=== PATIENT | male | born 1950 | race Caucasian/White ===

== ENCOUNTER 2018-05-28 13:36 | Outpatient (CLI) | payer MEDICARE, MEDICAID ==
[~2018-05-28] VITALS: Ht 188 cm; Wt 74.8 kg
[~2018-05-28 13:36] MED LIST: ASPI-808 PO; ASPI325T32 PO; ATEN-147 PO; ATEN25TA PO; CLOP75TA28 PO; HYDR-2890 PO; HYDR-3820 PO; LISI10TA2 PO; NITR0.4T39 SL; NTR.4SL SL; OXYC5TAB71 PO; PANT40TA3 PO; PENI500T PO; PRAV10TA PO; PRAV40TA PO; PRAV40TA2 PO; PRM25T PO; PROM25TA14 PO; RNT150T PO; SULF-222 PO; TEMA15CA PO; TRAM50TA2 PO
[2018-06-01] MEDS ORDERED: PANT40TA2 PO (16:22)
== END 2018-05-28 13:45 | disposition home or self-care (01) ==
LOC: PREOP 13:36
PROVIDERS: ATTEND Surgery
DX: Z01.818 Encounter for other preprocedural examination (principal)

== ENCOUNTER 2018-06-01 12:34 | Day surgery (SDC) | payer MEDICARE, MEDICAID ==
[~2018-06-01] VITALS: Ht 188 cm; Wt 74.8 kg
--- OUTSIDE RECORDS SUMMARY | 2018-06-01 12:38 | XMS REPORT ---
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 Active 4984629721758 Problem Panlobular emphysema J43.1 Active 0261230 ALLERGIES No Information ENCOUNTERS Encounter Location Date Diagnosis [place] [id number] [place] [address] 15478- 6573 May, [place] [id number] [place] [address] 83057- 2482 May, [place] [id number] [place] [address] 60883- 7778 May, 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 and Arthritis M19.90 [place] [id number] [place] [address] 84229- 7723 May, [place] [id number] [place] [address] 62463- 3999 05 May, 2018 Black tarry stools K92.1 [place] [id number] [place] [address] 36419- 9864 Mar, Black tarry stools K92.1 ; Abdominal pain, left upper quadrant R10.12 and Arthritis M19.90 [place] [id number] [place] [address] 03547- 9284 Mar, Anemia, unspecified type D64.9 [facility] [id number] [place] [address] 99392- 1341 Mar, Anemia, unspecified type D64.9 [facility] [id number] [place] [address] 48225- 9582 Mar, [facility] [id number] [place] [address] 79971- 9124 Mar, Anemia, unspecified type D64.9 [place] [id number] [place] [address] 56211- 6203 Mar, [place] [id number] [place] [address] 33161- 8624 Mar, [place] [id number] [place] [address] 84216- 9093 Mar, Irregular cardiac rhythm I49.9 ; Arthritis M19.90 ; Family history of early CAD Z82.49 ; SOB (shortness of breath) on exertion R06.02 ; Tobacco abuse Z72.0 ; Tobacco abuse counseling Z71.6 and Dysuria R30.0 [place] [id number] [place] [address] 46551- 3471 Mar, Arthritis M19.90 and Panlobular emphysema J43.1 [place] [id number] [place] [address] 58133- 1670 Feb, Arthritis M19.90 and Abdominal pain, left upper quadrant R10.12 [place] [id number] [place] [address] 89737- 2987 Jan, Panlobular emphysema J43.1 [place] [id number] [place] [address] 53842- 4341 Jan, Arthritis M19.90 ; Family history of rheumatoid arthritis Z82.61 ; Gastritis, bile acid reflux K29.60 and Anemia, unspecified type D64.9 [place] [id number] [place] [address] December, [facility] [address] [facility] [id number] [address] December, Panlobular emphysema J43.1 ; Arthritis M19.90 and 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 [facility] [address] [facility] [id number] [place] [address] 4573 Nov, 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0 RDW 25.0 11.0-15.0 PLATELET COUNT 862 140-400 MPV 9.3 7.5-12.5 ABSOLUTE NEUTROPHILS 6215 1582-8020 ABSOLUTE LYMPHOCYTES 3797 850-3900 ABSOLUTE MONOCYTES 836 200-950 ABSOLUTE EOSINOPHILS 373 15-500 ABSOLUTE BASOPHILS 79 0-200 NEUTROPHILS 55 LYMPHOCYTES 33.6 MONOCYTES 7.4 EOSINOPHILS 3.3 BASOPHILS 0.7 PROCEDURES Procedure Date Ordered Result Body Site VENIPUNCT, ROUTINE* Apr 26, 2018 INSTRUCTIONS MEDICATIONS ADMINISTERED No Known Medications MEDICAL (GENERAL) HISTORY Type Description Date Medical History Arthritis Medical History [place] with 2 stents Surgical History cardiac stent Surgical History cholecystectomy
--- OUTSIDE RECORDS SUMMARY | 2018-06-01 12:38 | XMS REPORT ---
Author Author NICOLAS CAMACHO Organization [facility] Address [address] [place] [address] Care Team Providers Care Truck Operator Name Role Phone NICOLAS CAMACHO Unavailable PROBLEMS Type Condition ICD9-CM Code [id number] Code Onset Dates Condition Status SNOMED Code Problem Irregular cardiac rhythm I49.9 Active 388731882 Problem Gastritis, bile acid reflux K29.60 Active 09922164 Problem Arthritis M19.90 Active 6893019 Problem Coronary artery disease of [place] artery of [place] heart with stable angina pectoris I25.118 Active 0859103830944 Problem Panlobular emphysema J43.1 Active 4191556 ALLERGIES Substance Reaction Event Type Date Status Ibuprofen hives Drug Allergy Mar, Active ENCOUNTERS Encounter Location Date Diagnosis [place] [id number] [place] [address] 68730- 0554 May, [facility] [address] 22296- 7938 May, [facility] [id number] [place] [address] 49458- 5933 May, [facility] [id number] [place] [address] 26021- 6777 May, Coronary artery disease of [place] artery of [place] heart with stable angina pectoris I25.118 and Arthritis M19.90 [facility] [id number] [place] [address] 72817- 0354 May, [facility] [address] 29803- 3140 05 May, 2018 Black tarry stools K92.1 [facility] [id number] [place] [address] 98793- 8240 Mar, Black tarry stools K92.1 ; Abdominal pain, left upper quadrant R10.12 and Arthritis M19.90 [place] [id number] [place] [address] 36326- 4200 Mar, Anemia, unspecified type D64.9 [place] [id number] [place] [address] 07083- 9568 Mar, Anemia, unspecified type D64.9 [place] [address] 16988- 7560 Mar, [place] [id number] [place] [address] 55717- 2143 Mar, Anemia, unspecified type D64.9 [place] [id number] [place] [address] 42224- 5008 Mar, [place] [id number] [place] [address] 99033- 9746 Mar, [place] [id number] [place] [address] 29825- 1789 Mar, Irregular cardiac rhythm I49.9 ; Arthritis M19.90 ; Family history of early CAD Z82.49 ; SOB (shortness of breath) on exertion R06.02 ; Tobacco abuse Z72.0 ; Tobacco abuse counseling Z71.6 and Dysuria R30.0 [place] [id number] [place] [address] 78743- 8226 Mar, Arthritis M19.90 and Panlobular emphysema J43.1 [place] [id number] [place] [address] 00341- 1808 Feb, Arthritis M19.90 and Abdominal pain, left upper quadrant R10.12 [place] [id number] [place] [address] 73203- 6452 Jan, Panlobular emphysema J43.1 [place] [id number] [place] [address] 61786- 5132 Jan, Arthritis M19.90 ; Family history of rheumatoid arthritis Z82.61 ; Gastritis, bile acid reflux K29.60 and Anemia, unspecified type D64.9 [place] [address] [id number] [address]- 1639 December, [place] [id number] [address]- 8183 December, Panlobular emphysema J43.1 ; Arthritis M19.90 and Coronary artery disease of [place] artery of [place] heart with stable angina pectoris I25.118 [place] [address] [id number] [address]- 4673 Nov, Coronary artery disease of [place] artery of [place] heart with stable angina pectoris I25.118 ; Arthritis M19.90 ; Panlobular emphysema J43.1 and Coughing R05 IMMUNIZATIONS No Known Immunizations SOCIAL HISTORY Never Assessed REASON FOR VISIT anemina Pt in for f/u on anemia had two units of blood on JAMIL Vele[facility] PLAN OF CARE VITAL SIGNS Height 70 in 2018-04-29 Weight 158.9 lbs 2018-04-29 Heart Rate 76 bpm 2018-04-29 Respiratory Rate 18 2018-04-29 BMI 22.80 kg/m2 2018-04-29 Blood pressure systolic 126 mmHg 2018-04-29 Blood pressure diastolic 74 mmHg 2018-04-29 MEDICATIONS Medication Instructions Dosage Frequency Start Date End Date Duration Status Promethazine HCl 25 MG Orally every 6 hrs 1 tablet as needed 6h 7 Active Lisinopril 20 mg Orally Once a day 1 tablet 24h Mar, 30 day(s) Active Restoril 15 mg Orally Once a day 1 capsule at bedtime as needed 24h December 28 days Active Nitroglycerin 0.4 MG Active [place] 7.5-325 MG Orally every 6 hrs 1 tablet as needed 6h 30 Mar, 2018 Active Pantoprazole Sodium 40 mg Orally Once a day 1 tablet 24h Jan, 30 day(s) Active Ferrous Sulfate 325 (65 Fe) MG Orally Once a day 1 tablet 24h Jan, 30 day(s) Active Meloxicam 7.5 MG Orally 2 times a day 1 tablet 12h Jan, May, 30 day(s) Not-Taking Plavix 75 MG Orally Once a day 1 tablet 24h Active RESULTS No Results PROCEDURES Procedure Date Ordered Result Body Site [facility] VISIT ESTABLISHED PATIENT Apr 29, 2018 INSTRUCTIONS MEDICATIONS ADMINISTERED No Known Medications MEDICAL (GENERAL) HISTORY Type Description Date Medical History Arthritis Medical History [place] with 2 stents Surgical History cardiac stent Surgical History cholecystectomy
--- OUTSIDE RECORDS SUMMARY | 2018-06-01 12:38 | XMS REPORT ---
Author Author NICOLAS CAMACHO Organization [facility] Address [address] [place] [address] Care Team Providers Care Aircraft Engine Technician Name Role Phone NICOLAS CAMACHO Unavailable PROBLEMS Type Condition ICD9-CM Code [id number] Code Onset Dates Condition Status SNOMED Code Problem Irregular cardiac rhythm I49.9 Active 620890719 Problem Gastritis, bile acid reflux K29.60 Active 93404210 Problem Arthritis M19.90 Active 2888416 Problem Coronary artery disease of [place] artery of [place] heart with stable angina pectoris I25.118 Active 9055606832137 Problem Panlobular emphysema J43.1 Active 3631120 ALLERGIES No Information ENCOUNTERS Encounter Location Date Diagnosis [place] [id number] [place] [address] 85926- 1303 May, [place] [id number] [place] [address] 09727- 6531 May, [place] [id number] [place] [address] 34267- 6031 24 May, 2018 [place] [id number] [place] [address] 30400- 3494 20 May, 2018 Coronary artery disease of [place] artery of [place] heart with stable angina pectoris I25.118 and Arthritis M19.90 [facility] [address] [place] [address] 82948- 9398 May, [place] [id number] [place] [address] 70260- 2208 05 May, 2018 Black tarry stools K92.1 [facility] [id number] [place] [address] 58824- 5900 Mar, Black tarry stools K92.1 ; Abdominal pain, left upper quadrant R10.12 and Arthritis M19.90 [place] [address] [place] [address] 46413- 1115 Mar, Anemia, unspecified type D64.9 [place] [address] [place] [address] 80495- 9424 Mar, Anemia, unspecified type D64.9 [place] [address] [place] [address] 82962- 6921 Mar, [place] [address] [place] [address] 20740- 3631 Mar, Anemia, unspecified type D64.9 [place] [address] [place] [address] 04322- 8435 Mar, [place] [address] [place] [address] 98269- 3565 Mar, [place] [address] [place] [address] 32693- 8845 Mar, Irregular cardiac rhythm I49.9 ; Arthritis M19.90 ; Family history of early CAD Z82.49 ; SOB (shortness of breath) on exertion R06.02 ; Tobacco abuse Z72.0 ; Tobacco abuse counseling Z71.6 and Dysuria R30.0 [place] [address] [place] [address] 45487- 0342 Mar, Arthritis M19.90 and Panlobular emphysema J43.1 [place] [address] [place] [address] 10636- 9391 Feb, Arthritis M19.90 and Abdominal pain, left upper quadrant R10.12 [place] [address] [place] [address] 48056- 8076 Jan, Panlobular emphysema J43.1 [place] [address] [place] [address] 90095- 1574 Jan, Arthritis M19.90 ; Family history of rheumatoid arthritis Z82.61 ; Gastritis, bile acid reflux K29.60 and Anemia, unspecified type D64.9 [facility] [address] [facility] [id number] [address]- 2598 December, [place] [address] [address]- 4168 December, Panlobular emphysema J43.1 ; Arthritis M19.90 and Coronary artery disease of [place] artery of [place] heart with stable angina pectoris I25.118 [place] [address] [facility] [id number], [place] [address]- 9499 Nov, Coronary artery disease of [place] artery of [place] heart with stable angina pectoris I25.118 ; Arthritis M19.90 ; Panlobular emphysema J43.1 and Coughing R05 IMMUNIZATIONS No Known Immunizations SOCIAL HISTORY Never Assessed REASON FOR VISIT Controlled Med Refill 05/06/18 PLAN OF CARE VITAL SIGNS MEDICATIONS Medication Instructions Dosage Frequency Start Date End Date Duration Status [place] 7.5-325 MG Orally every 6 hrs 1 tablet as needed 6h May, 28 days Active RESULTS No Results PROCEDURES No Known procedures INSTRUCTIONS MEDICATIONS ADMINISTERED No Known Medications MEDICAL (GENERAL) HISTORY Type Description Date Medical History Arthritis Medical History [place] with 2 stents Surgical History cardiac stent Surgical History cholecystectomy
--- OUTSIDE RECORDS SUMMARY | 2018-06-01 12:39 | XMS REPORT ---
Author Author NICOLAS CAMACHO Organization [facility] Address [address] [place] [address] Care Team Providers Care Soil Conservation Technician Name Role Phone NICLOAS CAMACHO Unavailable PROBLEMS Type Condition ICD9-CM Code EQO90-HF Code Onset Dates Condition Status SNOMED Code Problem Irregular cardiac rhythm I49.9 Active 861156533 Problem Gastritis, bile acid reflux K29.60 Active 90584412 Problem Arthritis M19.90 Active 3310083 Problem Coronary artery disease of [place] artery of [place] heart with stable angina pectoris I25.118 Active 8069352672634 Problem Panlobular emphysema J43.1 Active 2672316 ALLERGIES No Information ENCOUNTERS Encounter Location Date Diagnosis [place] [id number] [place] [address] 36092- 4629 May, [place] [id number] [place] [address] 31650- 2563 May, [place] [id number] [place] [address] 14946- 7817 May, [place] [id number] [place] [address] 77822- 4087 May, Black tarry stools K92.1 [place] [address] 60350- 3113 Mar, Black tarry stools K92.1 ; Abdominal pain, left upper quadrant R10.12 and Arthritis M19.90 [place] [id number] [place] [address] 82873- 2563 Mar, Anemia, unspecified type D64.9 [place] [id number] [place] [address] 09221- 3895 Mar, Anemia, unspecified type D64.9 [place] [address] [place] [address] 26552- 8666 Mar, [place] [id number] [place] [address] 38161- 3978 Mar, Anemia, unspecified type D64.9 [place] [id number] [place] [address] 14581- 4562 Mar, [place] [id number] [place] [address] 25701- 8116 Mar, [place] [id number] [place] [address] 69853- 0270 Mar, Irregular cardiac rhythm I49.9 ; Arthritis M19.90 ; Family history of early CAD Z82.49 ; SOB (shortness of breath) on exertion R06.02 ; Tobacco abuse Z72.0 ; Tobacco abuse counseling Z71.6 and Dysuria R30.0 [place] [id number] [place] [address] 59438- 3614 Mar, Arthritis M19.90 and Panlobular emphysema J43.1 [place] [id number] [place] [address] 09555- 9397 Feb, Arthritis M19.90 and Abdominal pain, left upper quadrant R10.12 [place] [id number] [place] [address] 09537- 2925 Jan, Panlobular emphysema J43.1 [place] [id number] [place] [address] 55874- 4206 13 Jan, 2018 Arthritis M19.90 ; Family history of rheumatoid arthritis Z82.61 ; Gastritis, bile acid reflux K29.60 and Anemia, unspecified type D64.9 [place] [address] [place] [address] 01881- 0405 December, [place] [id number] [place] [address] 83231- 4170 December, Panlobular emphysema J43.1 ; Arthritis M19.90 and Coronary artery disease of [place] artery of [place] heart with stable angina pectoris I25.118 [facility] [address] [facility] [id number] [place] [address]- 2727 Nov, Coronary artery disease of [place] artery of [place] heart with stable angina pectoris I25.118 ; Arthritis M19.90 ; Panlobular emphysema J43.1 and Coughing R05 IMMUNIZATIONS No Known Immunizations SOCIAL HISTORY Never Assessed REASON FOR VISIT controlled med refill 04/08/18 PLAN OF CARE VITAL SIGNS MEDICATIONS Medication Instructions Dosage Frequency Start Date End Date Duration Status Tramadol HCl 50 mg Orally 4 times a day 1 tablet as needed 6h Nov, 28 days Active Restoril 15 mg Orally Once a day 1 capsule at bedtime as needed 24h December 28 days Active RESULTS No Results PROCEDURES No Known procedures INSTRUCTIONS MEDICATIONS ADMINISTERED No Known Medications MEDICAL (GENERAL) HISTORY Type Description Date Medical History Arthritis Medical History [place] with 2 stents Surgical History cardiac stent Surgical History cholecystectomy
--- OUTSIDE RECORDS SUMMARY | 2018-06-01 12:39 | XMS REPORT ---
Author Author NICOLAS CAMACHO Organization [facility] Address [address] [place] [address] Care Team Providers Care Natural Gas Shothole Driller Name Role Phone NICOLAS CAMACHO Unavailable PROBLEMS Type Condition ICD9-CM Code AUM87-FP Code Onset Dates Condition Status SNOMED Code Problem Irregular cardiac rhythm I49.9 Active 506120382 Problem Gastritis, bile acid reflux K29.60 Active 99674068 Problem Arthritis M19.90 Active 1583684 Problem Coronary artery disease of [place] artery of [place] heart with stable angina pectoris I25.118 Active 2368501600115 Problem Panlobular emphysema J43.1 Active 3664541 ALLERGIES Substance Reaction Event Type Date Status Ibuprofen hives Drug Allergy Mar, Active ENCOUNTERS Encounter Location Date Diagnosis [place] [id number] [place] [address] 97728- 5652 May, [place] [id number] [place] [address] 72191- 8964 May, [place] [id number] [place] [address] 63919- 5536 20 May, 2018 Coronary artery disease of [place] artery of [place] heart with stable angina pectoris I25.118 and Arthritis M19.90 [place] [address] [place] [address] 27367- 1606 May, [place] [id number] [place] [address] 14031- 2196 05 May, 2018 Black tarry stools K92.1 [place] [facility] [id number] [place] [address] 02672- 6342 Mar, Black tarry stools K92.1 ; Abdominal pain, left upper quadrant R10.12 and Arthritis M19.90 [place] [id number] [address] Mar, Anemia, unspecified type D64.9 [place] [id number] [place] [address] 76246- 8331 Mar, Anemia, unspecified type D64.9 [place] [id number] [place] [address] 96016- 2789 Mar, [place] [id number] [place] [address] 71245- 3752 Mar, Anemia, unspecified type D64.9 [place] [id number] [place] [address] 07700- 7010 Mar, [place] [id number] [place] [address] 68798- 2819 Mar, [place] [id number] [place] [address] 70313- 6276 Mar, Irregular cardiac rhythm I49.9 ; Arthritis M19.90 ; Family history of early CAD Z82.49 ; SOB (shortness of breath) on exertion R06.02 ; Tobacco abuse Z72.0 ; Tobacco abuse counseling Z71.6 and Dysuria R30.0 [place] [id number] [place] [address] 00062- 9900 Mar, Arthritis M19.90 and Panlobular emphysema J43.1 [facility] [facility] [id number] [place] [address] 96830- 2764 Feb, Arthritis M19.90 and Abdominal pain, left upper quadrant R10.12 [place] [id number] [place] [address] 85962- 1467 Jan, Panlobular emphysema J43.1 [place] [id number] [place] [address] 14236- 3106 13 Jan, 2018 Arthritis M19.90 ; Family history of rheumatoid arthritis Z82.61 ; Gastritis, bile acid reflux K29.60 and Anemia, unspecified type D64.9 [facility] [address] [facility] [id number] [address] December, [facility] [address] [facility] [id number] [address] December, Panlobular emphysema J43.1 ; Arthritis M19.90 and Coronary artery disease of [place] artery of [place] heart with stable angina pectoris I25.118 [place] [address] [facility] [id number] [address] 7810 16 Nov, 2017 Coronary artery disease of [place] artery of [place] heart with stable angina pectoris I25.118 ; Arthritis M19.90 ; Panlobular emphysema J43.1 and Coughing R05 IMMUNIZATIONS No Known Immunizations SOCIAL HISTORY Never Assessed REASON FOR VISIT Arthritis, Reports shortness of breath with standing and pain across shoulders. , Feels like he is loosing weight. Reports "food tastes awful."CBrumbackR PLAN OF CARE VITAL SIGNS Height 70 in 2018-04-15 Weight 160.6 lbs 2018-04-15 Temperature 97.7 degrees Fahrenheit 2018-04-15 Heart Rate 86 bpm 2018-04-15 Respiratory Rate 18 2018-04-15 BMI 23.04 kg/m2 2018-04-15 Blood pressure systolic 114 mmHg 2018-04-15 Blood pressure diastolic 70 mmHg 2018-04-15 MEDICATIONS Medication Instructions Dosage Frequency Start Date End Date Duration Status Nitroglycerin 0.4 MG Active Plavix 75 MG Orally Once a day 1 tablet 24h Active Meloxicam 7.5 MG Orally 2 times a day 1 tablet 12h Jan, May, 30 day(s) Not-Taking Ferrous Sulfate 325 (65 Fe) MG Orally Once a day 1 tablet 24h Jan, 30 day(s) Active Pantoprazole Sodium 40 mg Orally Once a day 1 tablet 24h Jan, 30 day(s) Active Restoril 15 mg Orally Once a day 1 capsule at bedtime as needed 24h December 28 days Active Tramadol HCl 50 mg Orally 4 times a day 1 tablet as needed 6h Nov, 28 days Active Promethazine HCl 25 MG Orally every 6 hrs 1 tablet as needed 6h 7 Active RESULTS No Results PROCEDURES Procedure Date Ordered Result Body Site EKG, TRACING (IN-HOUSE) 2018-04-15 Abnormal X-RAY EXAM CHEST 2 VIEWS Apr 15, 2018 [facility] VISIT ESTABLISHED PATIENT Apr 15, 2018 ELECTROCARDIOGRAM, TRACING Apr 15, 2018 LAB NOT BILLED BY [facility] Apr 15, 2018 INSTRUCTIONS MEDICATIONS ADMINISTERED No Known Medications MEDICAL (GENERAL) HISTORY Type Description Date Medical History Arthritis Medical History [place] with 2 stents Surgical History cardiac stent Surgical History cholecystectomy
--- OUTSIDE RECORDS SUMMARY | 2018-06-01 12:39 | XMS REPORT ---
Author Author NICOLAS CAMACHO Organization [facility] Address [address] [place] [address] Care Team Providers Care Java Tech Lead Name Role Phone NICOLAS CAMACHO Unavailable PROBLEMS Type Condition ICD9-CM Code GRP96-XA Code Onset Dates Condition Status SNOMED Code Problem Irregular cardiac rhythm I49.9 Active 340554395 Problem Gastritis, bile acid reflux K29.60 Active 56983360 Problem Arthritis M19.90 Active 9476374 Problem Coronary artery disease of [place] artery of [place] heart with stable angina pectoris I25.118 Active 8618366607887 Problem Panlobular emphysema J43.1 Active 5096923 ALLERGIES No Information ENCOUNTERS Encounter Location Date Diagnosis [place] [id number] [place] [address] 35888- 1968 May, [place] [id number] [place] [address] 77369- 4445 May, [place] [id number] [place] [address] 25400- 9975 May, [place] [id number] [place] [address] 54903- 9174 May, Black tarry stools K92.1 [place] [address] 03749- 0559 Mar, Black tarry stools K92.1 ; Abdominal pain, left upper quadrant R10.12 and Arthritis M19.90 [place] [id number] [place] [address] 43798- 6014 Mar, Anemia, unspecified type D64.9 [place] [id number] [place] [address] 79749- 6614 Mar, Anemia, unspecified type D64.9 [place] [address] [place] [address] 87720- 3208 Mar, [place] [id number] [place] [address] 16273- 6809 Mar, Anemia, unspecified type D64.9 [place] [id number] [place] [address] 57167- 2116 Mar, [place] [id number] [place] [address] 93618- 8282 Mar, [place] [id number] [place] [address] 87438- 1549 Mar, Irregular cardiac rhythm I49.9 ; Arthritis M19.90 ; Family history of early CAD Z82.49 ; SOB (shortness of breath) on exertion R06.02 ; Tobacco abuse Z72.0 ; Tobacco abuse counseling Z71.6 and Dysuria R30.0 [place] [id number] [place] [address] 54616- 3899 Mar, Arthritis M19.90 and Panlobular emphysema J43.1 [place] [id number] [place] [address] 53625- 9597 Feb, Arthritis M19.90 and Abdominal pain, left upper quadrant R10.12 [place] [id number] [place] [address] 96318- 3658 Jan, Panlobular emphysema J43.1 [place] [id number] [place] [address] 71368- 5692 13 Jan, 2018 Arthritis M19.90 ; Family history of rheumatoid arthritis Z82.61 ; Gastritis, bile acid reflux K29.60 and Anemia, unspecified type D64.9 [place] [address] [place] [address] 60426- 7979 December, [place] [id number] [place] [address] 31638- 9633 December, Panlobular emphysema J43.1 ; Arthritis M19.90 and Coronary artery disease of [place] artery of [place] heart with stable angina pectoris I25.118 [facility] [address] [facility] [id number] [place] [address]- 8600 Nov, Coronary artery disease of [place] artery of [place] heart with stable angina pectoris I25.118 ; Arthritis M19.90 ; Panlobular emphysema J43.1 and Coughing R05 IMMUNIZATIONS No Known Immunizations SOCIAL HISTORY Never Assessed REASON FOR VISIT med PLAN OF CARE VITAL SIGNS MEDICATIONS Medication Instructions Dosage Frequency Start Date End Date Duration Status Lisinopril 20 mg Orally Once a day 1 tablet 24h Mar, 30 day(s) Active RESULTS No Results PROCEDURES No Known procedures INSTRUCTIONS MEDICATIONS ADMINISTERED No Known Medications MEDICAL (GENERAL) HISTORY Type Description Date Medical History Arthritis Medical History [place] with 2 stents Surgical History cardiac stent Surgical History cholecystectomy
--- OUTSIDE RECORDS SUMMARY | 2018-06-01 12:39 | XMS REPORT ---
Author Author NICOLAS CAMACHO Organization [facility] Address [address] [place] [address] Care Team Providers Care Manager Process Excellence Name Role Phone NICOLAS CAMACHO Unavailable PROBLEMS Type Condition ICD9-CM Code BUU57-MY Code Onset Dates Condition Status SNOMED Code Problem Irregular cardiac rhythm I49.9 Active 578178827 Problem Gastritis, bile acid reflux K29.60 Active 29538851 Problem Arthritis M19.90 Active 2642191 Problem Coronary artery disease of [place] artery of [place] heart with stable angina pectoris I25.118 Active 5333582382975 Problem Panlobular emphysema J43.1 Active 0581971 ALLERGIES Substance Reaction Event Type Date Status Ibuprofen hives Drug Allergy Jan, Active ENCOUNTERS Encounter Location Date Diagnosis [facility] [id number] [place] [address] 47182- 8978 May, [facility] [id number] [place] [address] 16046- 3734 May, [facility] [id number] [place] [address] 98329- 2756 Mar, [facility] [id number] [place] [address] 59225- 6295 Mar, Anemia, unspecified type D64.9 [facility] [id number] [place] [address] 03632- 3595 Mar, Anemia, unspecified type D64.9 [facility] [id number] [place] [address] 43149- 8749 Mar, [facility] [id number] [place] [address] 84901- 5747 Mar, Anemia, unspecified type D64.9 [facility] [id number] [place] [address] 88638- 0312 17 Mar, 2018 [place] [id number] [place] [address] 92637- 5543 Mar, [place] [id number] [place] [address] 23859- 9319 Mar, Irregular cardiac rhythm I49.9 ; Arthritis M19.90 ; Family history of early CAD Z82.49 ; SOB (shortness of breath) on exertion R06.02 ; Tobacco abuse Z72.0 ; Tobacco abuse counseling Z71.6 and Dysuria R30.0 [place] [address] 32777- 4020 08 Mar, 2018 Arthritis M19.90 and Panlobular emphysema J43.1 [place] [address] 27142- 6383 Feb, Arthritis M19.90 and Abdominal pain, left upper quadrant R10.12 [place] [facility] [id number] [place] [address] 66580- 7319 Jan, Panlobular emphysema J43.1 [place] [id number] [place] [address] 76323- 8403 13 Jan, 2018 Arthritis M19.90 ; Family history of rheumatoid arthritis Z82.61 ; Gastritis, bile acid reflux K29.60 and Anemia, unspecified type D64.9 [place] [id number] [place] [address] 95238- 2541 December, [place] [id number] [place] [address] 08375- 1464 December, Panlobular emphysema J43.1 ; Arthritis M19.90 and Coronary artery disease of [place] artery of [place] heart with stable angina pectoris I25.118 [place] [id number] [place] [address] 83492- 7932 16 Nov, 2017 Coronary artery disease of [place] artery of [place] heart with stable angina pectoris I25.118 ; Arthritis M19.90 ; Panlobular emphysema J43.1 and Coughing R05 IMMUNIZATIONS No Known Immunizations SOCIAL HISTORY Never Assessed REASON FOR VISIT Arthritis, dizzy, SOB, stomach pain and nausea-[place] [facility] PLAN OF CARE Activity Details Follow Up 4 Weeks Reason:arthritis VITAL SIGNS Height 70 in 2018-02-10 Weight 161.8 lbs 2018-02-10 Temperature 97.9 degrees Fahrenheit 2018-02-10 Heart Rate 93 bpm 2018-02-10 Respiratory Rate 22 2018-02-10 Oximetry 98 % 2018-02-10 BMI 23.21 kg/m2 2018-02-10 Blood pressure systolic 136 mmHg 2018-02-10 Blood pressure diastolic 76 mmHg 2018-02-10 MEDICATIONS Medication Instructions Dosage Frequency Start Date End Date Duration Status Pantoprazole Sodium 40 mg Orally Once a day 1 tablet 24h Jan, 30 day(s) Active Meloxicam 7.5 MG Orally 2 times a day 1 tablet 12h 13 Jan, 2018 May, 30 day(s) Active Ferrous Sulfate 325 (65 Fe) MG Orally Once a day 1 tablet 24h Jan, 30 day(s) Active Restoril 15 mg Orally Once a day 1 capsule at bedtime as needed 24h December Active Nitroglycerin 0.4 MG Active Tramadol HCl 50 mg Orally 4 times a day 1 tablet as needed 6h Nov, Active Plavix 75 MG Orally Once a day 1 tablet 24h Active RESULTS Name Result Date Reference Range H PYLORI (IN HOUSE) 2018-02-10 H. PYLORI Negative Control Positive Lot # [id number] Exp date 07/01/18 PROCEDURES Procedure Date Ordered Result Body Site IMMUNOASSAY,INFECTIOUS AGENT February 10, 2018 [facility] VISIT ESTABLISHED PATIENT February 10, 2018 INSTRUCTIONS MEDICATIONS ADMINISTERED No Known Medications MEDICAL (GENERAL) HISTORY Type Description Date Medical History Arthritis Medical History [place] with 2 stents Surgical History cardiac stent Surgical History cholecystectomy
--- OUTSIDE RECORDS SUMMARY | 2018-06-01 12:39 | XMS REPORT ---
Author Author NICOLAS CAMACHO Organization [facility] Address [address] [place] [address] Care Team Providers Care Inventory Analyst Name Role Phone NICOLAS CAMACHO Unavailable PROBLEMS Type Condition ICD9-CM Code YUY70-GO Code Onset Dates Condition Status SNOMED Code Problem Irregular cardiac rhythm I49.9 Active 639332100 Problem Gastritis, bile acid reflux K29.60 Active 32904107 Problem Arthritis M19.90 Active 2666873 Problem Coronary artery disease of [place] artery of [place] heart with stable angina pectoris I25.118 Active 9557950798340 Problem Panlobular emphysema J43.1 Active 9392580 ALLERGIES No Information ENCOUNTERS Encounter Location Date Diagnosis [place] [id number] [place] [address] 58885- 9000 May, [place] [id number] [place] [address] 47993- 2948 May, [place] [id number] [place] [address] 41272- 3337 May, Coronary artery disease of [place] artery of [place] heart with stable angina pectoris I25.118 and Arthritis M19.90 [place] [id number] [place] [address] 54921- 6845 May, [place] [id number] [place] [address] 75065- 2881 05 May, 2018 Black tarry stools K92.1 [place] [id number] [place] [address] 11854- 7655 Mar, Black tarry stools K92.1 ; Abdominal pain, left upper quadrant R10.12 and Arthritis M19.90 [place] [id number] [place] [address] 60988- 1016 Mar, Anemia, unspecified type D64.9 [facility] [id number] [place] [address] 02783- 2233 Mar, Anemia, unspecified type D64.9 [facility] [id number] [place] [address] 73718- 7875 Mar, [facility] [id number] [place] [address] 66689- 1682 Mar, Anemia, unspecified type D64.9 [place] [id number] [place] [address] 15793- 3110 Mar, [place] [id number] [place] [address] 09986- 0766 Mar, [place] [id number] [place] [address] 42194- 5139 Mar, Irregular cardiac rhythm I49.9 ; Arthritis M19.90 ; Family history of early CAD Z82.49 ; SOB (shortness of breath) on exertion R06.02 ; Tobacco abuse Z72.0 ; Tobacco abuse counseling Z71.6 and Dysuria R30.0 [place] [id number] [place] [address] 09131- 7368 Mar, Arthritis M19.90 and Panlobular emphysema J43.1 [place] [address] [place] [address] 71086- 3749 Feb, Arthritis M19.90 and Abdominal pain, left upper quadrant R10.12 [place] [id number] [place] [address] 44243- 9915 Jan, Panlobular emphysema J43.1 [place] [id number] [place] [address] 28537- 0197 Jan, Arthritis M19.90 ; Family history of rheumatoid arthritis Z82.61 ; Gastritis, bile acid reflux K29.60 and Anemia, unspecified type D64.9 [place] [id number] [address]- 2546 December, [facility] [address] [facility] [id number] [address]- 0768 December, Panlobular emphysema J43.1 ; Arthritis M19.90 and Coronary artery disease of [place] artery of [place] heart with stable angina pectoris I25.118 [facility] [address] [facility] [id number], [place] [address]- 0495 Nov, Coronary artery disease of [place] artery of [place] heart with stable angina pectoris I25.118 ; Arthritis M19.90 ; Panlobular emphysema J43.1 and Coughing R05 IMMUNIZATIONS No Known Immunizations SOCIAL HISTORY Never Assessed REASON FOR VISIT ekg results PLAN OF CARE VITAL SIGNS MEDICATIONS Unknown Medications RESULTS No Results PROCEDURES No Known procedures INSTRUCTIONS MEDICATIONS ADMINISTERED No Known Medications MEDICAL (GENERAL) HISTORY Type Description Date Medical History Arthritis Medical History [place] with 2 stents Surgical History cardiac stent Surgical History cholecystectomy
--- OUTSIDE RECORDS SUMMARY | 2018-06-01 12:39 | XMS REPORT ---
Author Author NICOLAS CAMACHO Organization [facility] Address [address] [place] [address] Care Team Providers Care Supervisor Printing And Stamping Name Role Phone NICOLAS CAMACHO Unavailable PROBLEMS Type Condition ICD9-CM Code VHB90-HU Code Onset Dates Condition Status SNOMED Code Problem Irregular cardiac rhythm I49.9 Active 031413821 Problem Gastritis, bile acid reflux K29.60 Active 89977857 Problem Arthritis M19.90 Active 1317178 Problem Coronary artery disease of [place] artery of [place] heart with stable angina pectoris I25.118 Active 7681128129906 Problem Panlobular emphysema J43.1 Active 8126430 ALLERGIES No Information ENCOUNTERS Encounter Location Date Diagnosis [place] [id number] [place] [address] 22456- 4638 May, [place] [id number] [place] [address] 25621- 7468 May, [place] [id number] [place] [address] 90805- 4367 May, Coronary artery disease of [place] artery of [place] heart with stable angina pectoris I25.118 and Arthritis M19.90 [place] [id number] [place] [address] 98008- 9859 May, [place] [id number] [place] [address] 88983- 4489 05 May, 2018 Black tarry stools K92.1 [place] [id number] [place] [address] 44838- 1844 Mar, Black tarry stools K92.1 ; Abdominal pain, left upper quadrant R10.12 and Arthritis M19.90 [place] [id number] [place] [address] 00747- 8865 Mar, Anemia, unspecified type D64.9 [facility] [id number] [place] [address] 60019- 6290 Mar, Anemia, unspecified type D64.9 [facility] [id number] [place] [address] 92123- 8262 Mar, [facility] [id number] [place] [address] 86295- 3919 Mar, Anemia, unspecified type D64.9 [place] [id number] [place] [address] 73941- 7611 Mar, [place] [id number] [place] [address] 98997- 6549 Mar, [place] [id number] [place] [address] 50461- 0841 Mar, Irregular cardiac rhythm I49.9 ; Arthritis M19.90 ; Family history of early CAD Z82.49 ; SOB (shortness of breath) on exertion R06.02 ; Tobacco abuse Z72.0 ; Tobacco abuse counseling Z71.6 and Dysuria R30.0 [place] [id number] [place] [address] 42735- 3120 Mar, Arthritis M19.90 and Panlobular emphysema J43.1 [place] [address] [place] [address] 62401- 1464 Feb, Arthritis M19.90 and Abdominal pain, left upper quadrant R10.12 [place] [id number] [place] [address] 08238- 6976 Jan, Panlobular emphysema J43.1 [place] [id number] [place] [address] 33005- 7278 Jan, Arthritis M19.90 ; Family history of rheumatoid arthritis Z82.61 ; Gastritis, bile acid reflux K29.60 and Anemia, unspecified type D64.9 [place] [id number] [address]- 8316 December, [facility] [address] [facility] [id number] [address] December, Panlobular emphysema J43.1 ; Arthritis M19.90 and Coronary artery disease of [place] artery of [place] heart with stable angina pectoris I25.118 [facility] [address] [facility] [id number] [address]00 Nov, Coronary artery disease of [place] artery of [place] heart with stable angina pectoris I25.118 ; Arthritis M19.90 ; Panlobular emphysema J43.1 and Coughing R05 IMMUNIZATIONS No Known Immunizations SOCIAL HISTORY Never Assessed REASON FOR VISIT urgent lab PLAN OF CARE VITAL SIGNS MEDICATIONS Unknown Medications RESULTS Name Result Date Reference Range TYPE AND CROSS (OUTSIDE ORDER) 2018-04-21 PROCEDURES No Known procedures INSTRUCTIONS MEDICATIONS ADMINISTERED No Known Medications MEDICAL (GENERAL) HISTORY Type Description Date Medical History Arthritis Medical History [place] with 2 stents Surgical History cardiac stent Surgical History cholecystectomy
--- OUTSIDE RECORDS SUMMARY | 2018-06-01 12:39 | XMS REPORT ---
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 Active 8824668959067 Problem Panlobular emphysema J43.1 Active 4291781 ALLERGIES No Information ENCOUNTERS Encounter Location Date Diagnosis [place] [id number] [place] [address] 39291- 3795 May, [place] [id number] [place] [address] 87373- 1318 May, [place] [id number] [place] [address] 92813- 1587 May, Coronary artery disease of inupiat artery of inupiat heart with stable angina pectoris I25.118 and Arthritis M19.90 [place] [id number] [place] [address] 09093- 6240 May, [place] [id number] [place] [address] 59273- 0516 05 May, 2018 Black tarry stools K92.1 [place] [id number] [place] [address] 97131- 6267 Mar, Black tarry stools K92.1 ; Abdominal pain, left upper quadrant R10.12 and Arthritis M19.90 [place] [id number] [place] [address] 15047- 8488 Mar, Anemia, unspecified type D64.9 [facility] [id number] [place] [address] 76566- 7635 Mar, Anemia, unspecified type D64.9 [facility] [id number] [place] [address] 06202- 6758 Mar, [facility] [id number] [place] [address] 68154- 1630 Mar, Anemia, unspecified type D64.9 [place] [id number] [place] [address] 46266- 0596 Mar, [place] [id number] [place] [address] 25121- 7438 Mar, [place] [id number] [place] [address] 11161- 2402 Mar, Irregular cardiac rhythm I49.9 ; Arthritis M19.90 ; Family history of early CAD Z82.49 ; SOB (shortness of breath) on exertion R06.02 ; Tobacco abuse Z72.0 ; Tobacco abuse counseling Z71.6 and Dysuria R30.0 [place] [id number] [place] [address] 69828- 2575 Mar, Arthritis M19.90 and Panlobular emphysema J43.1 [place] [address] [place] [address] 67220- 7933 Feb, Arthritis M19.90 and Abdominal pain, left upper quadrant R10.12 [place] [id number] [place] [address] 11621- 6892 Jan, Panlobular emphysema J43.1 [place] [id number] [place] [address] 81771- 7759 Jan, Arthritis M19.90 ; Family history of rheumatoid arthritis Z82.61 ; Gastritis, bile acid reflux K29.60 and Anemia, unspecified type D64.9 [place] [id number] [address] 2546 December, [facility] [address] 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 [id number], [place] [address] Nov, Coronary artery disease of inupiat artery of inupiat heart with stable angina pectoris I25.118 ; Arthritis M19.90 ; Panlobular emphysema J43.1 and Coughing R05 IMMUNIZATIONS No Known Immunizations SOCIAL HISTORY Never Assessed REASON FOR VISIT lab PLAN OF CARE VITAL SIGNS MEDICATIONS Unknown Medications RESULTS No Results PROCEDURES No Known procedures INSTRUCTIONS MEDICATIONS ADMINISTERED No Known Medications MEDICAL (GENERAL) HISTORY Type Description Date Medical History Arthritis Medical History [place] with 2 stents Surgical History cardiac stent Surgical History cholecystectomy
--- OUTSIDE RECORDS SUMMARY | 2018-06-01 12:39 | XMS REPORT ---
Author Author NICOLAS CAMACHO Organization [facility] Address [address] [place] [address] Care Team Providers Care Police Inspector Name Role Phone NICOLAS CAMACHO Unavailable PROBLEMS Type Condition ICD9-CM Code RZE67-HY Code Onset Dates Condition Status SNOMED Code Problem Irregular cardiac rhythm I49.9 Active 953900843 Problem Gastritis, bile acid reflux K29.60 Active 55354771 Problem Arthritis M19.90 Active 4544790 Problem Coronary artery disease of [place] artery of [place] heart with stable angina pectoris I25.118 Active 1494932216722 Problem Panlobular emphysema J43.1 Active 7841993 ALLERGIES No Information ENCOUNTERS Encounter Location Date Diagnosis [place] [id number] [place] [address] 28934- 3914 May, [place] [id number] [place] [address] 59974- 1021 May, [place] [id number] [place] [address] 44744- 7246 May, Coronary artery disease of [place] artery of [place] heart with stable angina pectoris I25.118 and Arthritis M19.90 [place] [id number] [place] [address] 68181- 6870 May, [place] [id number] [place] [address] 49127- 1116 May, Black tarry stools K92.1 [place] [id number] [place] [address] 39856- 8227 Mar, Black tarry stools K92.1 ; Abdominal pain, left upper quadrant R10.12 and Arthritis M19.90 [place] [id number] [place] [address] 74210- 1555 Mar, Anemia, unspecified type D64.9 [facility] [id number] [place] [address] 44094- 6739 Mar, Anemia, unspecified type D64.9 [facility] [id number] [place] [address] 58266- 5080 Mar, [facility] [id number] [place] [address] 81883- 4207 Mar, Anemia, unspecified type D64.9 [place] [id number] [place] [address] 54897- 4509 Mar, [place] [id number] [place] [address] 81357- 0481 Mar, [place] [id number] [place] [address] 65874- 1700 Mar, Irregular cardiac rhythm I49.9 ; Arthritis M19.90 ; Family history of early CAD Z82.49 ; SOB (shortness of breath) on exertion R06.02 ; Tobacco abuse Z72.0 ; Tobacco abuse counseling Z71.6 and Dysuria R30.0 [place] [id number] [place] [address] 85361- 0571 Mar, Arthritis M19.90 and Panlobular emphysema J43.1 [place] [address] [place] [address] 04218- 2822 Feb, Arthritis M19.90 and Abdominal pain, left upper quadrant R10.12 [place] [id number] [place] [address] 70147- 8712 Jan, Panlobular emphysema J43.1 [place] [id number] [place] [address] 90232- 6282 Jan, Arthritis M19.90 ; Family history of rheumatoid arthritis Z82.61 ; Gastritis, bile acid reflux K29.60 and Anemia, unspecified type D64.9 [place] [id number] [address] 2546 December, [facility] [address] [facility] [id number] [address] December, Panlobular emphysema J43.1 ; Arthritis M19.90 and Coronary artery disease of [place] artery of [place] heart with stable angina pectoris I25.118 [facility] [address] [facility] [id number] [address] Nov, Coronary artery disease of [place] artery of [place] heart with stable angina pectoris I25.118 ; Arthritis M19.90 ; Panlobular emphysema J43.1 and Coughing R05 IMMUNIZATIONS No Known Immunizations SOCIAL HISTORY Never Assessed REASON FOR VISIT Urgent Lab Result PLAN OF CARE VITAL SIGNS MEDICATIONS Unknown Medications RESULTS No Results PROCEDURES No Known procedures INSTRUCTIONS MEDICATIONS ADMINISTERED No Known Medications MEDICAL (GENERAL) HISTORY Type Description Date Medical History Arthritis Medical History CT with 2 stents Surgical History cardiac stent Surgical History cholecystectomy
--- OUTSIDE RECORDS SUMMARY | 2018-06-01 12:39 | XMS REPORT ---
Author Author NICOLAS CAMACHO Organization [facility] Address [address] [place] [address] Care Team Providers Care Program Specialist Name Role Phone NICOLAS CAMACHO Unavailable PROBLEMS Type Condition ICD9-CM Code DSI63-FW Code Onset Dates Condition Status SNOMED Code Problem Irregular cardiac rhythm I49.9 Active 303779823 Problem Gastritis, bile acid reflux K29.60 Active 15472650 Problem Arthritis M19.90 Active 2799235 Problem Coronary artery disease of ambler artery of ambler heart with stable angina pectoris I25.118 Active 4455967587347 Problem Panlobular emphysema J43.1 Active 6517332 ALLERGIES No Information ENCOUNTERS Encounter Location Date Diagnosis [place] [id number] [place] [address] 19530- 1215 May, [place] [id number] [place] [address] 81289- 4165 May, [place] [id number] [place] [address] 14506- 8413 May, [place] [id number] [place] [address] 48754- 6755 Mar, Black tarry stools K92.1 ; Abdominal pain, left upper quadrant R10.12 and Arthritis M19.90 [place] [id number] [place] [address] 06741- 8605 Mar, Anemia, unspecified type D64.9 [place] [id number] [place] [address] 60395- 3343 Mar, Anemia, unspecified type D64.9 [place] [id number] [place] [address] 63248- 6002 Mar, [place] [id number] [place] [address] 83232- 7756 Mar, Anemia, unspecified type D64.9 [place] [id number] [place] [address] 84556- 8375 Mar, [place] [id number] [place] [address] 43187- 7915 Mar, [place] [address] 89207- 2090 Mar, Irregular cardiac rhythm I49.9 ; Arthritis M19.90 ; Family history of early CAD Z82.49 ; SOB (shortness of breath) on exertion R06.02 ; Tobacco abuse Z72.0 ; Tobacco abuse counseling Z71.6 and Dysuria R30.0 [place] [id number] [place] [address] 29967- 4499 Mar, Arthritis M19.90 and Panlobular emphysema J43.1 [place] [id number] [place] [address] 00618- 2451 Feb, Arthritis M19.90 and Abdominal pain, left upper quadrant R10.12 [place] [id number] [place] [address] 77559- 4062 Jan, Panlobular emphysema J43.1 [place] [id number] [place] [address] 75020- 2075 Jan, Arthritis M19.90 ; Family history of rheumatoid arthritis Z82.61 ; Gastritis, bile acid reflux K29.60 and Anemia, unspecified type D64.9 [place] [id number] [place] [address] 81377- 2974 December, [place] [id number] [place] [address] 04626- 1600 December, Panlobular emphysema J43.1 ; Arthritis M19.90 and Coronary artery disease of ambler artery of ambler heart with stable angina pectoris I25.118 [place] [address] [place] [id number] [address]- 7776 16 Nov, 2017 Coronary artery disease of ambler artery of ambler heart with stable angina pectoris I25.118 ; Arthritis M19.90 ; Panlobular emphysema J43.1 and Coughing R05 IMMUNIZATIONS No Known Immunizations SOCIAL HISTORY Never Assessed REASON FOR VISIT Controlled Med Refill PLAN OF CARE VITAL SIGNS MEDICATIONS Medication Instructions Dosage Frequency Start Date End Date Duration Status Restoril 15 mg Orally Once a day 1 capsule at bedtime as needed 24h December 28 days Active RESULTS No Results PROCEDURES No Known procedures INSTRUCTIONS MEDICATIONS ADMINISTERED No Known Medications MEDICAL (GENERAL) HISTORY Type Description Date Medical History Arthritis Medical History [place] with 2 stents Surgical History cardiac stent Surgical History cholecystectomy
--- OUTSIDE RECORDS SUMMARY | 2018-06-01 12:39 | XMS REPORT ---
Author Author NICOLAS CAMACHO Organization [facility] Address [address] [place] [address] Care Team Providers Care Window Machine Operator Name Role Phone NICOLAS CAMACHO Unavailable PROBLEMS Type Condition ICD9-CM Code OTP35-HT Code Onset Dates Condition Status SNOMED Code Problem Irregular cardiac rhythm I49.9 Active 580125499 Problem Gastritis, bile acid reflux K29.60 Active 11406303 Problem Arthritis M19.90 Active 5426537 Problem Coronary artery disease of [place] artery of [place] heart with stable angina pectoris I25.118 Active 3584628427057 Problem Panlobular emphysema J43.1 Active 3919717 ALLERGIES Substance Reaction Event Type Date Status Ibuprofen hives Drug Allergy Feb, Active ENCOUNTERS Encounter Location Date Diagnosis [place] [id number] [place] [address] 84703- 9651 May, [place] [address] 83921- 8683 May, [place] [id number] [place] [address] 90293- 5309 May, [place] [id number] [place] [address] 24874- 0065 May, Black tarry stools K92.1 [place] [id number] [place] [address] 28012- 6336 Mar, Black tarry stools K92.1 ; Abdominal pain, left upper quadrant R10.12 and Arthritis M19.90 [facility] [id number] [place] [address] 72819- 6550 Mar, Anemia, unspecified type D64.9 [place] [address] 28574- 7452 Mar, Anemia, unspecified type D64.9 [place] [id number] [place] [address] 81060- 1264 Mar, [place] [id number] [place] [address] 92763- 3518 Mar, Anemia, unspecified type D64.9 [place] [address] 94711- 1265 Mar, [place] [address] 17446- 7285 Mar, [place] [address] 31060- 0926 Mar, Irregular cardiac rhythm I49.9 ; Arthritis M19.90 ; Family history of early CAD Z82.49 ; SOB (shortness of breath) on exertion R06.02 ; Tobacco abuse Z72.0 ; Tobacco abuse counseling Z71.6 and Dysuria R30.0 [place] [id number] [place] [address] 50367- 4906 Mar, Arthritis M19.90 and Panlobular emphysema J43.1 [place] [id number] [place] [address] 29662- 2259 Feb, Arthritis M19.90 and Abdominal pain, left upper quadrant R10.12 [place] [id number] [place] [address] 35068- 7915 Jan, Panlobular emphysema J43.1 [place] [id number] [place] [address] 29098- 8474 13 Jan, 2018 Arthritis M19.90 ; Family history of rheumatoid arthritis Z82.61 ; Gastritis, bile acid reflux K29.60 and Anemia, unspecified type D64.9 [place] [id number] [place] [address] 74084- 8584 December, [place] [address] 02401- 8461 December, Panlobular emphysema J43.1 ; Arthritis M19.90 and Coronary artery disease of [place] artery of [place] heart with stable angina pectoris I25.118 [facility] [address] [facility] [id number] [place] [address]- 1270 Nov, Coronary artery disease of [place] artery of [place] heart with stable angina pectoris I25.118 ; Arthritis M19.90 ; Panlobular emphysema J43.1 and Coughing R05 IMMUNIZATIONS Vaccine Route Administration Date Status PHENERGAN (IM) 25 MG (25 MG/ML) IM Intramuscular March 11, 2018 Administered SOCIAL HISTORY Never Assessed REASON FOR VISIT Arthritis, PT is also having pain and pressure under the left ribs with nausea- [place] MA PLAN OF CARE VITAL SIGNS Height 70 in 2018-03-11 Weight 160.3 lbs 2018-03-11 Temperature 98.5 degrees Fahrenheit 2018-03-11 Heart Rate 92 bpm 2018-03-11 Respiratory Rate 18 2018-03-11 BMI 23 kg/m2 2018-03-11 Blood pressure systolic 132 mmHg 2018-03-11 Blood pressure diastolic 78 mmHg 2018-03-11 MEDICATIONS Medication Instructions Dosage Frequency Start Date End Date Duration Status Nitroglycerin 0.4 MG Active Meloxicam 7.5 MG Orally 2 times a day 1 tablet 12h Jan, May, 30 day(s) Active Plavix 75 MG Orally Once a day 1 tablet 24h Active Restoril 15 mg Orally Once a day 1 capsule at bedtime as needed 24h December 28 days Active Promethazine HCl 25 MG Orally every 6 hrs 1 tablet as needed 6h Feb, Active Augmentin 875-125 MG Orally every 12 hrs 1 tablet 12h Feb,Feb 10 day(s) Active Tramadol HCl 50 mg Orally 4 times a day 1 tablet as needed 6h Nov, Active Ferrous Sulfate 325 (65 Fe) MG Orally Once a day 1 tablet 24h Jan, 30 day(s) Active Pantoprazole Sodium 40 mg Orally Once a day 1 tablet 24h Jan, 30 day(s) Active RESULTS No Results PROCEDURES Procedure Date Ordered Result Body Site COUNT INCLUDES THE [facility] VISIT ESTABLISHED PATIENT March 11, 2018 PHENERGAN (IM) 25 MG (25 MG/ML) March 11, 2018 INSTRUCTIONS MEDICATIONS ADMINISTERED No Known Medications MEDICAL (GENERAL) HISTORY Type Description Date Medical History Arthritis Medical History [place] with 2 stents Surgical History cardiac stent Surgical History cholecystectomy
--- OUTSIDE RECORDS SUMMARY | 2018-06-01 12:40 | XMS REPORT ---
Author Author NICOLAS CAMACHO Organization [facility] Address [address] [place] [address] Care Team Providers Care Fryer Line Helper Name Role Phone NICOLAS CAMACHO Unavailable PROBLEMS Type Condition ICD9-CM Code LNA92-TO Code Onset Dates Condition Status SNOMED Code Problem Gastritis, bile acid reflux K29.60 Active 82389179 Problem Coronary artery disease of [place] artery of [place] heart with stable angina pectoris I25.118 Active 5279423981721 Problem Panlobular emphysema J43.1 Active 7539706 Problem Arthritis M19.90 Active 7745280 ALLERGIES Substance Reaction Event Type Date Status Ibuprofen hives Drug Allergy Nov, Active ENCOUNTERS Encounter Location Date Diagnosis [place] [id number] [place] [address] 74072- 5270 Feb, Arthritis M19.90 and Abdominal pain, left upper quadrant R10.12 [place] [id number] [place] [address] 33388- 1790 Jan, Panlobular emphysema J43.1 [place] [id number] [place] [address] 29698- 0239 Jan, Arthritis M19.90 ; Family history of rheumatoid arthritis Z82.61 ; Gastritis, bile acid reflux K29.60 and Anemia, unspecified type D64.9 [place] [id number] [place] [address] 65722- 5356 December, [place] [address] 87873- 4561 December, Panlobular emphysema J43.1 ; Arthritis M19.90 and Coronary artery disease of [place] artery of [place] heart with stable angina pectoris I25.118 [place] [id number] [place] [address] 52946873- 7238 Nov, Coronary artery disease of [place] artery of [place] heart with stable angina pectoris I25.118 ; Arthritis M19.90 ; Panlobular emphysema J43.1 and Coughing R05 IMMUNIZATIONS No Known Immunizations SOCIAL HISTORY Never Assessed REASON FOR VISIT Establish Care- had a SD 10-12 years ago, was seeing Dr Reyes, was found to have inflamation, was sent to Dr Jung for Arthritis- Gustavo Bonner RN PLAN OF CARE Activity Details Follow Up 4 Weeks Reason:cad VITAL SIGNS Height 70 in 2017-12-14 Weight 165 lbs 2017-12-14 Temperature 97.8 degrees Fahrenheit 2017-12-14 Heart Rate 88 bpm 2017-12-14 Respiratory Rate 24 2017-12-14 BMI 23.67 kg/m2 2017-12-14 Blood pressure systolic 122 mmHg 2017-12-14 Blood pressure diastolic 74 mmHg 2017-12-14 MEDICATIONS Medication Instructions Dosage Frequency Start Date End Date Duration Status Plavix 75 MG Orally Once a day 1 tablet 24h Active Nitroglycerin 0.4 MG Active Amitriptyline HCl 50 mg Orally Once a day 1 tablet 24h Nov, 30 day(s) Active Tramadol HCl 50 mg Orally 3 times a day 1 tablet as needed 8h Nov, Active Levaquin 500 mg Orally Once a day 1 tablet 24h Nov, Nov, 10 day(s) Active RESULTS No Results PROCEDURES Procedure Date Ordered Result Body Site EKG, TRACING (IN-HOUSE) 2017-12-14 Normal [facility] VISIT ESTABLISHED PATIENT December 14, 2017 X-RAY EXAM CHEST 2 VIEWS December 14, 2017 [facility] December 14, 2017 ELECTROCARDIOGRAM, TRACING December 14, 2017 VENIPUNCT, ROUTINE* December 14, 2017 INSTRUCTIONS MEDICATIONS ADMINISTERED No Known Medications MEDICAL (GENERAL) HISTORY Type Description Date Medical History Arthritis Surgical History cardiac stent Surgical History cholecystectomy
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
--- OUTSIDE RECORDS SUMMARY | 2018-06-01 12:40 | XMS REPORT ---
Author Author NICOLAS CAMACHO Organization [facility] Address [address] [place] [address] Care Team Providers Care Service Rig Operator Name Role Phone NICOLAS CAMACHO Unavailable PROBLEMS Type Condition ICD9-CM Code BTO22-ZM Code Onset Dates Condition Status SNOMED Code Problem Gastritis, bile acid reflux K29.60 Active 15920396 Problem Coronary artery disease of [place] artery of [place] heart with stable angina pectoris I25.118 Active 0022314901827 Problem Panlobular emphysema J43.1 Active 3164714 Problem Arthritis M19.90 Active 4718953 ALLERGIES No Information ENCOUNTERS Encounter Location Date Diagnosis [place] [address] [address] Mar, [place] [address] [place] [id number] [place] [address] Mar, Arthritis M19.90 and Panlobular emphysema J43.1 [place] [address] [place] [id number] [place] [address] 52073- [address]605 Feb, Arthritis M19.90 and Abdominal pain, left upper quadrant R10.12 [place] [address] [place] [id number] [place] [address]- [address] Jan, Panlobular emphysema J43.1 [place] [address] [place] [id number] [place] [address]96- [address] Jan, Arthritis M19.90 ; Family history of rheumatoid arthritis Z82.61 ; Gastritis, bile acid reflux K29.60 and Anemia, unspecified type D64.9 [place] [address] [place] [id number] [place] [address]- [address] December, [place] [address] [address] December, Panlobular emphysema J43.1 ; Arthritis M19.90 and Coronary artery disease of [place] artery of [place] heart with stable angina pectoris I25.118 [facility] [address] [facility] [id number] [place] [address] Nov, Coronary artery disease of [place] artery of [place] heart with stable angina pectoris I25.118 ; Arthritis M19.90 ; Panlobular emphysema J43.1 and Coughing R05 IMMUNIZATIONS No Known Immunizations SOCIAL HISTORY Never Assessed REASON FOR VISIT PLAN OF CARE VITAL SIGNS MEDICATIONS Unknown Medications RESULTS No Results PROCEDURES No Known procedures INSTRUCTIONS MEDICATIONS ADMINISTERED No Known Medications MEDICAL (GENERAL) HISTORY Type Description Date Medical History Arthritis Surgical History cardiac stent Surgical History cholecystectomy
--- OUTSIDE RECORDS SUMMARY | 2018-06-01 12:40 | XMS REPORT ---
Author Author NICOLAS CAMACHO Organization [facility] Address [address] [place] [address] Care Team Providers Care Hacksaw Inspector Name Role Phone NICOLAS CAMACHO Unavailable PROBLEMS Type Condition ICD9-CM Code HUR82-TZ Code Onset Dates Condition Status SNOMED Code Problem Gastritis, bile acid reflux K29.60 Active 81829915 Problem Coronary artery disease of [place] artery of [place] heart with stable angina pectoris I25.118 Active 7989516960039 Problem Panlobular emphysema J43.1 Active 7159932 Problem Arthritis M19.90 Active 0284513 ALLERGIES Substance Reaction Event Type Date Status Ibuprofen hives Drug Allergy December, Active ENCOUNTERS Encounter Location Date Diagnosis [place] [address] [address] [place] [id number] [place] [address] Mar, [place] [address] [place] [id number] [place] [address] Mar, Arthritis M19.90 and Panlobular emphysema J43.1 [place] [address] [place] [id number] [place] [address] Feb, Arthritis M19.90 and Abdominal pain, left upper quadrant R10.12 [place] [address] [place] [id number] [place] [address] Jan, Panlobular emphysema J43.1 [place] [address] [address] Jan, Arthritis M19.90 ; Family history of rheumatoid arthritis Z82.61 ; Gastritis, bile acid reflux K29.60 and Anemia, unspecified type D64.9 [place] [address] [place] [id number] [place] [address] December, [place] [address] [address] [facility] [id number] [place] [address] December, Panlobular emphysema J43.1 ; Arthritis M19.90 and 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 3 weeks ago PT was told he has Dontrell NEGRON PLAN OF CARE Activity Details Follow Up 4 Weeks Reason:arthritis VITAL SIGNS Height 70 in 2018-01-08 Weight 163.6 lbs 2018-01-08 Temperature 97.7 degrees Fahrenheit 2018-01-08 Heart Rate 93 bpm 2018-01-08 Respiratory Rate 22 2018-01-08 Oximetry 98 % 2018-01-08 BMI 23.47 kg/m2 2018-01-08 Blood pressure systolic 148 mmHg 2018-01-08 Blood pressure diastolic 92 mmHg 2018-01-08 MEDICATIONS Medication Instructions Dosage Frequency Start Date End Date Duration Status Restoril 15 mg Orally Once a day 1 capsule at bedtime as needed 24h December Active Nitroglycerin 0.4 MG Active Plavix 75 MG Orally Once a day 1 tablet 24h Active Tramadol HCl 50 mg Orally 4 times a day 1 tablet as needed 6h Nov, Active RESULTS No Results PROCEDURES Procedure Date Ordered Result Body Site [facility] VISIT ESTABLISHED PATIENT January 08, 2018 INSTRUCTIONS MEDICATIONS ADMINISTERED No Known Medications MEDICAL (GENERAL) HISTORY Type Description Date Medical History Arthritis Surgical History cardiac stent Surgical History cholecystectomy
[2018-06-01] MEDS ORDERED: LACTATED RINGERS 1,000 ML IV ONE (12:48)
[2018-06-01] MEDS ORDERED: LACTATED RINGERS 1,000 ML IV STA (12:51)
[2018-06-01 13:34] VITALS: BP 163/106
[2018-06-01] MEDS ORDERED: MIDAZOLAM 2 MG/2 ML (VERSED) VIAL ONE (14:16)
[2018-06-01] MEDS ORDERED: PROPOFOL INJECTION 50 ML IV ONE ×2 (14:16→15:34)
--- NOTE | 2018-06-01 15:31 | Progress Note-Pre Operative ---
Pre-Operative Progress Note H&P Reviewed The H&P was reviewed, patient examined and no changes noted. Date Seen by Provider: Jun 01, 2018 Time Seen by Provider: 15:31 Date H&P Reviewed: Jun 01, 2018 Time H&P Reviewed: 15:31 Pre-Operative Diagnosis: iron def anemia, black stools JEWELL WEI DO Jun 01, 2018 15:31
[2018-06-01] MEDS ORDERED: PHENYLEPHRINE 100 MCG/ML 10 ML (ANESTHESIA) SYR ONE (15:38)
--- NOTE | 2018-06-01 16:16 | Progress Note-Post Operative ---
Post-Operative Progess Note Surgeon (s)/Wood Finisher Apprentice (s) Surgeon JEWELL WEI DO Wood Finisher Apprentice: na Pre-Operative Diagnosis iron def anemia, black stools Post-Operative Diagnosis gastritis, colon polyps x 4 Procedure & Operative Findings Date of Procedure 06/01/18 Procedure Performed/Findings egd c biopsy, colonoscopy with hot bx polypectomy x 2 Anesthesia Type per associate store manager Estimated Blood Loss Estimated blood loss (mL): none Specimens/Packing Specimens Removed antrum, sigmoid polyp x 2 JEWELL WEI DO Jun 01, 2018 16:16
--- NOTE | 2018-06-01 16:18 | Discharge Inst-Simple/Standard ---
Discharge Inst-Standard Patient Instructions/Follow Up Plan of Care/Instructions/FU: 2 weeks [place] Activity as Tolerated: Yes Discharge Diet: Regular Diet JEWELL WEI DO Jun 01, 2018 16:17
[2018-06-01 16:20] VITALS: BP 102/58
[2018-06-01] MEDS ORDERED: PANT40TA2 PO (16:22)
[2018-06-01 16:40] VITALS: BP 110/60
[2018-06-01 16:57] VITALS: BP 110/60
--- NOTE | 2018-06-01 16:58 | Anesthesia-General Post-Op ---
MAC Patient Condition Mental Status/LOC: Same as Preop Cardiovascular: Satisfactory Nausea/Vomiting: Absent Respiratory: Satisfactory Pain: Controlled Complications: Absent Post Op Complications Complications None Follow Up Care/Instructions Patient Instructions None needed. Anesthesiology Discharge Order Discharge Order Patient is doing well, no complaints, stable vital signs, no apparent adverse anesthesia problems. No complications reported per nursing. MAICOL SINGH CRNA Jun 01, 2018 16:58
--- NOTE | 2018-06-02 01:10 | OPERATIVE REPORT ---
DATE OF SERVICE: 06/01/2018 PREOPERATIVE DIAGNOSES: Iron deficiency anemia, black stools. POSTOPERATIVE DIAGNOSES: Gastritis, colon polyps x2. PROCEDURE: EGD with biopsy, colonoscopy with hot biopsy polypectomy x2. SURGEON: Jewell Avila DO ANESTHESIA: Per CAFE ATTENDANT. ESTIMATED BLOOD LOSS: None. COMPLICATIONS: None. INDICATIONS: The patient is a 68-year-old male who has been having iron deficiency anemia and dark stools. He understands risks and benefits of procedure and wished to proceed with procedures. Consent was signed and on the chart. DESCRIPTION OF PROCEDURE: The patient was taken to the endoscopy suite, placed in left lateral recumbent position. Timeout was performed. Scope was inserted in mouth, down the esophagus, down into the duodenum with no polyps, mass or ulcerations visualized within the duodenum. Scope was slowly retracted back into the stomach, which was further insufflated. Some erythematous changes consistent with some gastritis was present. Biopsy was obtained of the antrum. No other pathology noted. The scope was retroflexed noting no hiatal hernia. No polyps, mass or ulcerations. The scope was returned to its normal position, slowly withdrawn to the distal esophagus, which had normal appearance. Scope was continuously retracted back to completely remove, noting no other pathology. Digital rectal exam was performed. There were no palpable polyps, masses or ulcerations. Scope was inserted in the rectum and advanced all the way to the cecum with minimal difficulty. Prep was adequate. Scope was then slowly retracted back. There were no polyps, masses or ulcerations in the cecum, ascending, transverse and descending colon. Once in the sigmoid, there is two polyps, which hot biopsy polypectomy was performed. Scope was continuously retracted back into the rectum, where it was also retroflexed noting no other pathology. Scope was returned to its normal position, slowly withdrawn until completely removed, noting no other pathology. RECOMMENDATIONS: The patient will need repeat colonoscopy in 5 years. If he has any problems prior to that, he should be reevaluated at that time. The patient will also start on Protonix 40 mg daily and followup in 2 weeks in the office. Job ID: [id number] DocumentID: [id number] Dictated Date: 06/01/2018 16:21:35 Practical Nurse Date: 06/02/2018 01:09:44 Dictated By: JEWELL AVILA DO
== END 2018-06-01 16:45 | disposition home or self-care (01) ==
LOC: ENDO 12:34
PROVIDERS: ATTEND Surgery
DX: K29.70 Gastritis, unspecified, without bleeding (principal); D12.5 Benign neoplasm of sigmoid colon; D50.9 Iron deficiency anemia, unspecified; I25.10 Atherosclerotic heart disease of native coronary artery without angina pectoris; E78.5 Hyperlipidemia, unspecified; M06.9 Rheumatoid arthritis, unspecified; F17.210 Nicotine dependence, cigarettes, uncomplicated; Z79.02 Long term (current) use of antithrombotics/antiplatelets
CPT/HCPCS: 88305

== ENCOUNTER 2018-12-28 09:31 | Outpatient (CLI) | payer MEDICARE, MEDICAID ==
[2018-12-28] VITALS (7 sets, daily range): BP systolic 136–175; BP diastolic 68–92
[~2018-12-28] VITALS: Ht 188 cm; Wt 74.8 kg
[~2018-12-28 09:31] MED LIST changes: +PANT40TA2 PO
[2018-12-28] MEDS ORDERED: NS IV 500 ML 500 ML ONE (09:50)
[2018-12-28] MEDS ORDERED: NS IV 500 ML 500 ML IV SCH (10:15)
[2018-12-28 13:46] LABS: HEMOGLOBIN 7.2 G/DL (13.3-17.7)
[2018-12-28 15:03] LABS: HEMOGLOBIN 8.3 G/DL (13.3-17.7)
== END 2018-12-28 15:00 | disposition home or self-care (01) ==
LOC: SDC 09:31
PROVIDERS: ATTEND Nurse Practitioner Community Health
DX: D64.9 Anemia, unspecified (principal)
CPT/HCPCS: 36415; 36430; 85014; 85018; 86850; 86900; 86901; 86920

== ENCOUNTER 2019-01-02 08:40 | Inpatient (IN) | payer MEDICARE, MEDICAID ==
[2019-01-02] VITALS (9 sets, daily range): BP systolic 160–175; BP diastolic 79–87
[~2019-01-02] VITALS: Ht 185.4 cm; Wt 72.2 kg
--- OUTSIDE RECORDS SUMMARY | 2019-01-02 08:48 | XMS REPORT ---
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 [id number] ALLERGIES No Information ENCOUNTERS Encounter Location Date Diagnosis [place] [address] [place] [id number] [place] [address] Jul, [facility] [place] [address] [address] Jul, [facility] [place] [address] [place] [id number] [place] [address] 6[address]- [address] May, Tobacco abuse Z72.0 [facility] [place] [address] [place] [id number] [place] [address] 40[address]- [address] May, Arthritis M19.90 [facility] [place] [address] [place] [id number] [place] [address]- [address] May, [facility] [place] [address] [address] May, [facility] [place] [address] [place] [id number] [place] [address]55- 1606 May, Coronary artery disease of [place] artery of [place] heart with stable angina pectoris I25.118 and Arthritis M19.90 [place] [address] [address] [place] [id number] [place] [address] 7[address]- [address] 13 May, 2018 [facility] [place] [address] [place] [id number] [place] [address]- [address] 05 May, 2018 Black tarry stools K92.1 [place] [address] [place] [id number] [place] [address] 21855- [address] 30 Mar, 2018 Black tarry stools K92.1 ; Abdominal pain, left upper quadrant R10.12 and Arthritis M19.90 [place] [address] [address] [place] [id number] [place] [address] 19897- [address] Mar, Anemia, unspecified type D64.9 [place] [address] [place] [id number] [place] [address]- [address] Mar, Anemia, unspecified type D64.9 [place] [address] [place] [id number] [place] [address]74- [address] Mar, [facility] [place] [address] [place] [id number] [place] [address] 398[address]- [address] Mar, Anemia, unspecified type D64.9 [place] [address] [place] [id number] [place] [address]- [address] Mar, [place] [address] [place] [id number] [place] [address] 9[address]- [address]876 Mar, [place] [address] [place] [id number] [place] [address] 47156- 2009 Mar, Irregular cardiac rhythm I49.9 ; Arthritis M19.90 ; Family history of early CAD Z82.49 ; SOB (shortness of breath) on exertion R06.02 ; Tobacco abuse Z72.0 ; Tobacco abuse counseling Z71.6 and Dysuria R30.0 [place] [address] [place] [address] 29165- 609[address] Mar, Arthritis M19.90 and Panlobular emphysema J43.1 [place] [address] [place] [id number] [place] [address] 40013- [address] Feb, Arthritis M19.90 and Abdominal pain, left upper quadrant R10.12 [place] [address] [place] [id number] [place] [address] 26378- [address] 27 Jan, 2018 Panlobular emphysema J43.1 [place] [address] [address]- [address] 13 Jan, 2018 Arthritis M19.90 ; Family history of rheumatoid arthritis Z82.61 ; Gastritis, bile acid reflux K29.60 and Anemia, unspecified type D64.9 [place] [address] [place] [id number] [place] [address] 35[address]- [address] December, [place] [address] [place] [id number] [place] [address] 38[address]- 8945 December, Panlobular emphysema J43.1 ; Arthritis M19.90 and Coronary artery disease of [place] artery of [place] heart with stable angina pectoris I25.118 [place] [address] [place] [id number] [place] [address]77- [address] 16 Nov, 2017 Coronary artery disease of [place] artery of [place] heart with stable angina pectoris I25.118 ; Arthritis M19.90 ; Panlobular emphysema J43.1 and Coughing R05 IMMUNIZATIONS No Known Immunizations SOCIAL HISTORY Never Assessed REASON FOR VISIT Requests return call PLAN OF CARE VITAL SIGNS MEDICATIONS Unknown Medications RESULTS No Results PROCEDURES No Known procedures INSTRUCTIONS MEDICATIONS ADMINISTERED No Known Medications MEDICAL (GENERAL) HISTORY Type Description Date Medical History Arthritis Medical History [place] with 2 stents Surgical History cardiac stent Surgical History cholecystectomy
--- OUTSIDE RECORDS SUMMARY | 2019-01-02 08:48 | XMS REPORT ---
Author Author NICOLAS CAMACHO Organization [facility] Address [address] [place] [address] Care Team Providers Care Diamond Driller Helper Name Role Phone NICOLAS CAMACHO Unavailable PROBLEMS Type Condition ICD9-CM Code RRA93-FB Code Onset Dates Condition Status SNOMED Code Problem Tobacco abuse Z72.0 Active 94138127 Problem Irregular cardiac rhythm I49.9 Active 876008742 Problem Arthritis M19.90 Active 7574820 Problem Panlobular emphysema J43.1 Active 6950152 Problem Gastritis, bile acid reflux K29.60 Active 81126911 Problem Coronary artery disease of hoon[place] artery of hoon[place] heart with stable angina pectoris I25.118 Active [id number] ALLERGIES No Information ENCOUNTERS Encounter Location Date Diagnosis [place] [address] 17939- 5137 Jul, [place] [address] 55404- 1843 Jul, [place] [address] 87796- 5092 Jul, Arthritis M19.90 ; Family history of early CAD Z82.49 and Viral URI J06.9 [place] [address] [place] [id number] [place] [address] 84929- 5733 Jul, Arthritis M19.90 [facility] [address] [place] [id number] [place] [address] 75860- 1867 Jul, [place] [address] 74754- 9072 May, Tobacco abuse Z72.0 [facility] [address] 76600- 7270 May, Arthritis M19.90 [facility] [address] [place] [address] 52987- 4512 May, [facility] [address] [place] [id number] [place] [address] 87858- 1946 24 May, 2018 [facility] [address] [place] [id number] [place] [address] 16222- 3420 May, Coronary artery disease of hoon[place] artery of [place]oon[place] heart with stable angina pectoris I25.118 and Arthritis M19.90 [facility] [address] [place] [id number] [place] [address] 30305- 2109 13 May, 2018 [facility] [address] 72464- 1363 05 May, 2018 Black tarry stools K92.1 [facility] [address] [place] [id number] [place] [address] 78112- 0226 Mar, Black tarry stools K92.1 ; Abdominal pain, left upper quadrant R10.12 and Arthritis M19.90 [facility] [address] [place] [id number] [place] [address] 32532- 4189 Mar, Anemia, unspecified type D64.9 [facility] [address] [place] [id number] [place] [address] 81621- 0873 Mar, Anemia, unspecified type D64.9 [facility] [address] [place] [id number] [place] [address] 51370- 4278 Mar, [facility] [address] [place] [id number] [place] [address] 51640- 0229 Mar, Anemia, unspecified type D64.9 [facility] [address] [place] [id number] [place] [address] 61238- 1262 Mar, [facility] [address] [place] [id number] [place] [address] 63102- 2527 Mar, [facility] [address] [place] [id number] [place] [address] 19036- 6973 Mar, Irregular cardiac rhythm I49.9 ; Arthritis M19.90 ; Family history of early CAD Z82.49 ; SOB (shortness of breath) on exertion R06.02 ; Tobacco abuse Z72.0 ; Tobacco abuse counseling Z71.6 and Dysuria R30.0 [place] [address] [place] [id number] [place] [address] 60901- 7081 Mar, Arthritis M19.90 and Panlobular emphysema J43.1 [place] [address] 19258- 9466 Feb, Arthritis M19.90 and Abdominal pain, left upper quadrant R10.12 [place] [address] 54340- 1131 Jan, Panlobular emphysema J43.[address] 47553- 3626 Jan, Arthritis M19.90 ; Family history of rheumatoid arthritis Z82.61 ; Gastritis, bile acid reflux K29.60 and Anemia, unspecified type D64.9 [place] [address] [place] [id number] [place] [address] 32261- 6136 December, [place] [address] [place] [id number] [place] [address] 36775- 6610 December, Panlobular emphysema J43.1 ; Arthritis M19.90 and Coronary artery disease of hoon[place] artery of hoon[place] heart with stable angina pectoris I25.118 [place] [address] [place] [id number] [place] [address] 85565- 9581 16 Nov, 2017 Coronary artery disease of hoon[place] artery of hoon[place] heart with stable angina pectoris I25.118 ; Arthritis M19.90 ; Panlobular emphysema J43.1 and Coughing R05 IMMUNIZATIONS No Known Immunizations SOCIAL HISTORY Never Assessed REASON FOR VISIT Medication question PLAN OF CARE VITAL SIGNS MEDICATIONS Unknown Medications RESULTS No Results PROCEDURES No Known procedures INSTRUCTIONS MEDICATIONS ADMINISTERED No Known Medications MEDICAL (GENERAL) HISTORY Type Description Date Medical History Arthritis Medical History [place] with 2 stents Medical History chest pain Surgical History cardiac stent Surgical History cholecystectomy
--- OUTSIDE RECORDS SUMMARY | 2019-01-02 08:48 | XMS REPORT ---
Author Author NICOLAS CAMACHO Organization [facility] Address [address] [place] [address] Care Team Providers Care Biztalk Administrator Name Role Phone NICOLAS CAMACHO Unavailable PROBLEMS Type Condition ICD9-CM Code RKC08-IA Code Onset Dates Condition Status SNOMED Code Problem Tobacco abuse Z72.0 Active 46211207 Problem Irregular cardiac rhythm I49.9 Active 443997175 Problem Arthritis M19.90 Active 0185796 Problem Panlobular emphysema J43.1 Active 5084735 Problem Gastritis, bile acid reflux K29.60 Active 55326268 Problem Coronary artery disease of crow artery of crow heart with stable angina pectoris I25.118 Active [id number] ALLERGIES No Information ENCOUNTERS Encounter Location Date Diagnosis [facility] [address] [place] [id number] [place] [address] 36061 -6161 Jul, Arthritis M19.90 [facility] [address] 00095- 8175 Jul, [facility] [address] [place] [id number] [place] [address] 16134- 2331 Jul, [facility] [address] 20513- 9635 Jul, Arthritis M19.90 ; Family history of early CAD Z82.49 and Viral URI J06.9 [facility] [address] [place] [id number] [place] [address] 74301- 6614 Jul, Arthritis M19.90 [facility] [address] 73905- 3207 Jul, [facility] [address] 42623- 3430 May, Tobacco abuse Z72.0 [facility] [address] [place] [address] 50153- 5071 May, Arthritis M19.90 [facility] [address] [place] [id number] [place] [address] 51085- 8298 May, [facility] [address] [place] [id number] [place] [address] 53086- 8486 May, [facility] [address] [place] [id number] [place] [address] 52409- 0893 May, Coronary artery disease of crow artery of crow heart with stable angina pectoris I25.118 and Arthritis M19.90 [place] [address] [place] [id number] [place] [address] 22745- 3586 May, [facility] [address] [place] [id number] [place] [address] 33603- 8405 May, Black tarry stools K92.1 [facility] [address] [place] [id number] [place] [address] 62189- 7184 Mar, Black tarry stools K92.1 ; Abdominal pain, left upper quadrant R10.12 and Arthritis M19.90 [facility] [address] [place] [id number] [place] [address] 46660- 4641 Mar, Anemia, unspecified type D64.9 [place] [address] [place] [id number] [place] [address] 22154- 5485 Mar, Anemia, unspecified type D64.9 [facility] [address] [place] [id number] [place] [address] 04560- 5569 Mar, [facility] [address] [place] [id number] [place] [address] 35207- 0185 Mar, Anemia, unspecified type D64.9 [facility] [address] [place] [address] 96203- 7550 Mar, [facility] [address] [place] [id number] [place] [address] 19890- 0980 Mar, [place] [id number] [place] [address] 84840- 9799 Mar, Irregular cardiac rhythm I49.9 ; Arthritis M19.90 ; Family history of early CAD Z82.49 ; SOB (shortness of breath) on exertion R06.02 ; Tobacco abuse Z72.0 ; Tobacco abuse counseling Z71.6 and Dysuria R30.[address] 44260- 6300 Mar, Arthritis M19.90 and Panlobular emphysema J43.[address] 53767- 4440 Feb, Arthritis M19.90 and Abdominal pain, left upper quadrant R10.[address] 22403- 5950 Jan, Panlobular emphysema J43.[address] 21842- 7721 13 Jan, 2018 Arthritis M19.90 ; Family history of rheumatoid arthritis Z82.61 ; Gastritis, bile acid reflux K29.60 and Anemia, unspecified type D64.[address] 83931- 0651 December, [address] 99799- 4470 December, Panlobular emphysema J43.1 ; Arthritis M19.90 and Coronary artery disease of crow artery of crow heart with stable angina pectoris I25.[address] 75072- 5635 Nov, Coronary artery disease of crow artery of crow heart with stable angina pectoris I25.118 ; Arthritis M19.90 ; Panlobular emphysema J43.1 and Coughing R05 IMMUNIZATIONS No Known Immunizations SOCIAL HISTORY Never Assessed REASON FOR VISIT Controlled Med Refill 12/17/18 PLAN OF CARE VITAL SIGNS MEDICATIONS Medication Instructions Dosage Frequency Start Date End Date Duration Status Millwood 7.5-325 MG Orally every 6 hrs 1 tablet as needed 6h Jul, 29 days Active Promethazine HCl 25 MG Orally every 6 hrs 1 tablet as needed 6h 7 Active Restoril 15 mg Orally Once a day 1 capsule at bedtime as needed 24h December 29 days Active RESULTS No Results PROCEDURES No Known procedures INSTRUCTIONS MEDICATIONS ADMINISTERED No Known Medications MEDICAL (GENERAL) HISTORY Type Description Date Medical History Arthritis Medical History [place] with 2 stents Medical History chest pain Surgical History cardiac stent Surgical History cholecystectomy
--- OUTSIDE RECORDS SUMMARY | 2019-01-02 08:48 | XMS REPORT ---
Author Author NICOLAS CAMACHO Organization [facility] Address [address] [place] [address] Care Team Providers Care Clinical Recruiter Name Role Phone NICOLAS CAMACHO Unavailable PROBLEMS Type Condition ICD9-CM Code OKI94-[place] Code Onset Dates Condition Status SNOMED Code Problem Tobacco abuse Z72.0 Active 16913843 Problem Irregular cardiac rhythm I49.9 Active 843023592 Problem Arthritis M19.90 Active 7340009 Problem Panlobular emphysema J43.1 Active 6282151 Problem Gastritis, bile acid reflux K29.60 Active 14203035 Problem Coronary artery disease of wiy[place] artery of wiyot heart with stable angina pectoris I25.118 Active [id number] ALLERGIES No Information ENCOUNTERS Encounter Location Date Diagnosis [facility] [address] [place] [id number] [place] [address] 91949- 7310 May, Tobacco abuse Z72.0 [facility] [address] [place] [id number] [place] [address] 00790- 3018 May, Arthritis M19.90 [facility] [address] [place] [id number] [place] [address] 77541- 7555 May, [facility] [address] [place] [id number] [place] [address] 70415- 1071 24 May, 2018 [facility] [address] [place] [id number] [place] [address] 16356- 7364 20 May, 2018 Coronary artery disease of wiyot artery of wiyot heart with stable angina pectoris I25.118 and Arthritis M19.90 [facility] [address] [place] [id number] [place] [address] 94574- 3389 13 May, 2018 [facility] [address] [place] [id number] [place] [address] 70927- 3952 05 May, 2018 Black tarry stools K92.1 [place] [address] [place] [address] 17106- 8369 Mar, Black tarry stools K92.1 ; Abdominal pain, left upper quadrant R10.12 and Arthritis M19.90 [place] [address] [place] [id number] [place] [address] 73601- 1416 Mar, Anemia, unspecified type D64.9 [place] [address] [place] [id number] [place] [address] 30074- 0681 Mar, Anemia, unspecified type D64.9 [place] [address] [place] [id number] [place] [address] 97457- 8620 Mar, [place] [address] [place] [id number] [place] [address] 19436- 0658 Mar, Anemia, unspecified type D64.9 [place] [address] [place] [id number] [place] [address] 90660- 7128 Mar, [place] [address] [place] [id number] [place] [address] 70053- 0752 Mar, [place] [address] [place] [id number] [place] [address] 56564- 2383 Mar, Irregular cardiac rhythm I49.9 ; Arthritis M19.90 ; Family history of early CAD Z82.49 ; SOB (shortness of breath) on exertion R06.02 ; Tobacco abuse Z72.0 ; Tobacco abuse counseling Z71.6 and Dysuria R30.0 [place] [address] [place] [id number] [place] [address] 62229- 3175 Mar, Arthritis M19.90 and Panlobular emphysema J43.1 [place] [address] [place] [id number] [place] [address] 35595- 7028 Feb, Arthritis M19.90 and Abdominal pain, left upper quadrant R10.12 [place] [address] [place] [id number] [place] [address] 33407- 6541 Jan, Panlobular emphysema J43.1 [place] [address] [address]- 3944 Jan, Arthritis M19.90 ; Family history of rheumatoid arthritis Z82.61 ; Gastritis, bile acid reflux K29.60 and Anemia, unspecified type D64.9 [place] [address] [address]- 2204 December, [place] [address] [place] [id number] [place] [address] 06479- 8445 December, Panlobular emphysema J43.1 ; Arthritis M19.90 and Coronary artery disease of wiy[place] artery of wiyot heart with stable angina pectoris I25.118 [place] [address] [address]- 9795 Nov, Coronary artery disease of wiy[place] artery of wiyot heart with stable angina pectoris I25.118 ; Arthritis M19.90 ; Panlobular emphysema J43.1 and Coughing R05 IMMUNIZATIONS No Known Immunizations SOCIAL HISTORY Never Assessed REASON FOR VISIT PLAN OF CARE VITAL SIGNS MEDICATIONS Unknown Medications RESULTS No Results PROCEDURES No Known procedures INSTRUCTIONS MEDICATIONS ADMINISTERED No Known Medications MEDICAL (GENERAL) HISTORY Type Description Date Medical History Arthritis Medical History [place] with 2 stents Surgical History cardiac stent Surgical History cholecystectomy
--- OUTSIDE RECORDS SUMMARY | 2019-01-02 08:48 | XMS REPORT ---
Author Author NICOLAS CAMACHO Organization [facility] Address [address] [place] [address] Care Team Providers Care Crew Dispatcher Name Role Phone NICOLAS CAMACHO Unavailable PROBLEMS Type Condition ICD9-CM Code ZKI89-JI Code Onset Dates Condition Status SNOMED Code Problem Tobacco abuse Z72.0 Active 38840054 Problem Irregular cardiac rhythm I49.9 Active 138276759 Problem Arthritis M19.90 Active 7456530 Problem Panlobular emphysema J43.1 Active 1494686 Problem Gastritis, bile acid reflux K29.60 Active 98873622 Problem Coronary artery disease of [place]osh[place]ann[place] artery of shoshone[place]bannock heart with stable angina pectoris I25.118 Active [id number] ALLERGIES No Information ENCOUNTERS Encounter Location Date Diagnosis [place] [address] 04955- 5905 Jul, [place] [address] 92191- 5543 Jul, [place] [address] 51689- 5178 Jul, Arthritis M19.90 ; Family history of early CAD Z82.49 and Viral URI J06.9 [place] [address] [place] [id number] [place] [address] 22417- 9166 Jul, Arthritis M19.90 [facility] [address] [place] [id number] [place] [address] 62552- 4647 Jul, [place] [address] 67959- 5528 May, Tobacco abuse Z72.0 [facility] [address] 13831- 8908 May, Arthritis M19.90 [facility] [address] [place] [address] 41091- 3882 May, [facility] [address] [place] [id number] [place] [address] 02345- 5054 24 May, 2018 [facility] [address] [place] [id number] [place] [address] 71697- 2778 May, Coronary artery disease of [place]osh[place]ann[place] artery of shoshone-bannock heart with stable angina pectoris I25.118 and Arthritis M19.90 [facility] [address] [place] [id number] [place] [address] 16115- 4430 13 May, 2018 [facility] [address] 65347- 8276 05 May, 2018 Black tarry stools K92.1 [facility] [address] [place] [id number] [place] [address] 21737- 0757 Mar, Black tarry stools K92.1 ; Abdominal pain, left upper quadrant R10.12 and Arthritis M19.90 [facility] [address] [place] [id number] [place] [address] 16353- 8609 Mar, Anemia, unspecified type D64.9 [facility] [address] [place] [id number] [place] [address] 74475- 7370 Mar, Anemia, unspecified type D64.9 [facility] [address] [place] [id number] [place] [address] 14229- 9045 Mar, [facility] [address] [place] [id number] [place] [address] 44820- 7866 Mar, Anemia, unspecified type D64.9 [facility] [address] [place] [id number] [place] [address] 84483- 4486 Mar, [facility] [address] [place] [id number] [place] [address] 60865- 8381 Mar, [facility] [address] [place] [id number] [place] [address] 34916- 0481 Mar, Irregular cardiac rhythm I49.9 ; Arthritis M19.90 ; Family history of early CAD Z82.49 ; SOB (shortness of breath) on exertion R06.02 ; Tobacco abuse Z72.0 ; Tobacco abuse counseling Z71.6 and Dysuria R30.0 [place] [address] [place] [id number] [place] [address] 57909- 5668 Mar, Arthritis M19.90 and Panlobular emphysema J43.1 [place] [address] 79571- 6945 Feb, Arthritis M19.90 and Abdominal pain, left upper quadrant R10.12 [place] [address] 04323- 2996 Jan, Panlobular emphysema J43.[address] 98654- 8571 Jan, Arthritis M19.90 ; Family history of rheumatoid arthritis Z82.61 ; Gastritis, bile acid reflux K29.60 and Anemia, unspecified type D64.9 [place] [address] [place] [id number] [place] [address] 59036- 4754 December, [place] [address] [place] [id number] [place] [address] 55688- 5725 December, Panlobular emphysema J43.1 ; Arthritis M19.90 and Coronary artery disease of [place] artery of shoshone[place]bannock heart with stable angina pectoris I25.118 [place] [address] [place] [id number] [place] [address] 86940- 4885 16 Nov, 2017 Coronary artery disease of [place]osh[place]bann[place] artery of shoshone[place]bannock heart with stable angina pectoris I25.118 ; [...]
--- OUTSIDE RECORDS SUMMARY | 2019-01-02 08:48 | XMS REPORT ---
Author Author NICOLAS CAMACHO Organization [facility] Address [address] [place] [address] Care Team Providers Care Fleet Driver Name Role Phone NICOLAS CAMACHO Unavailable PROBLEMS Type Condition ICD9-CM Code [id number] Code Onset Dates Condition Status SNOMED Code Problem Tobacco abuse Z72.0 Active 93965573 Problem Irregular cardiac rhythm I49.9 Active 059888466 Problem Arthritis M19.90 Active 8485702 Problem Panlobular emphysema J43.1 Active 8321184 Problem Gastritis, bile acid reflux K29.60 Active 36530237 Problem Coronary artery disease of [place] artery of [place] heart with stable angina pectoris I25.118 Active 2172878477353 ALLERGIES Substance Reaction Event Type Date Status Ibuprofen hives Drug Allergy Jul, Active ENCOUNTERS Encounter Location Date Diagnosis [place] [id number] [address] Jul, [facility] [address] [address]- [address] Jul, [facility] [address] 23903- 9472 Jul, Arthritis M19.90 ; Family history of early CAD Z82.49 and Viral URI J06.9 [facility] [address] [place] [id number] [place] [address] 38902- 3269 Jul, Arthritis M19.90 [facility] [address] 0[address]- [address] Jul, [facility] [address] 78[address]- [address]11 May, Tobacco abuse Z72.0 [facility] [address] 29194- 4[address] May, Arthritis M19.90 [facility] [address], [place] [address] May, [facility] [address] [place] [address] 90186- 7686 May, [facility] [address] [place] [address] [id number] [place] [address] 83917- 7089 May, Coronary artery disease of [place] artery of [place] heart with stable angina pectoris I25.118 and Arthritis M19.90 [facility] [address] [place] [id number] [place] [address] 09333- 0521 May, [facility] [address] [id number] [place] [address] 87598- 7639 May, Black tarry stools K92.1 [facility] [address] [place] [id number] [place] [address] 50623- 8291 Mar, Black tarry stools K92.1 ; Abdominal pain, left upper quadrant R10.12 and Arthritis M19.90 [facility] [address] [place] [address] 06216- 9635 Mar, Anemia, unspecified type D64.9 [facility] [address], [place] [address] Mar, Anemia, unspecified type D64.9 [facility] [address], [place] [address] Mar, [facility] [address] [place] [address] 56219- 2745 Mar, Anemia, unspecified type D64.9 [facility] [address] [place] [id number] [place] [address] 74365- 2318 Mar, [facility] [address] [place] [address] 12423- 2563 Mar, [facility] [address] [place] [id number] [place] [address] 32020- 0938 Mar, Irregular cardiac rhythm I49.9 ; Arthritis M19.90 ; Family history of early CAD Z82.49 ; SOB (shortness of breath) on exertion R06.02 ; Tobacco abuse Z72.0 ; Tobacco abuse counseling Z71.6 and Dysuria R30.0 [place] [address] 47[address]- [address] Mar, Arthritis M19.90 and Panlobular emphysema J43.1 [place] [address] 94841- 1576 Feb, Arthritis M19.90 and Abdominal pain, left upper quadrant R10.12 [place] [address] 55973- 6508 Jan, Panlobular emphysema J43.1 [place] [address] 91282- 33[address] 13 Jan, 2018 Arthritis M19.90 ; Family history of rheumatoid arthritis Z82.61 ; Gastritis, bile acid reflux K29.60 and Anemia, unspecified type D64.9 [place] [address] 81131- 1648 December, [place] [address] 47958- 9619 December, Panlobular emphysema J43.1 ; Arthritis M19.90 and Coronary artery disease of [place] artery of [place] heart with stable angina pectoris I25.118 [place] [address] 58857- 8118 16 Nov, 2017 Coronary artery disease of [place] artery of [place] heart with stable angina pectoris I25.118 ; Arthritis M19.90 ; Panlobular emphysema J43.1 and Coughing R05 IMMUNIZATIONS No Known Immunizations SOCIAL HISTORY Never Assessed REASON FOR VISIT Congestion-chavo,RMA, pt states that he is having bloody stool, he also state that his arthritis is bothering him hurting him all over his body PLAN OF CARE VITAL SIGNS Height 70 in 2018-07-30 Weight 163.9 lbs 2018-07-30 Temperature 98.1 degrees Fahrenheit 2018-07-30 Heart Rate 104 bpm 2018-07-30 Respiratory Rate 18 2018-07-30 Oximetry on room air:97 % 2018-07-30 BMI 23.51 kg/m2 2018-07-30 Blood pressure systolic 150 mmHg 2018-07-30 Blood pressure diastolic 104 mmHg 2018-07-30 MEDICATIONS Medication Instructions Dosage Frequency Start Date End Date Duration Status Ferrous Sulfate 325 (65 Fe) MG Orally Once a day 1 tablet 24h Jan, 30 day(s) Active Nitroglycerin 0.4 MG Active Guaifenesin 400 mg Orally 4 times a day 0.5 tablet as needed 6h 30 Jul, 2018 Active [place] 7.5-325 MG Orally every 6 hrs 1 tablet as needed 6h 19 Jul, 2018 28 days Active Lisinopril 20 mg Orally Once a day 1 tablet 24h Mar, 30 day(s) Active Restoril 15 mg Orally Once a day 1 capsule at bedtime as needed 24h December 28 days Active Plavix 75 MG Orally Once a day 1 tablet 24h 30 days Active Promethazine HCl 25 MG Orally every 6 hrs 1 tablet as needed 6h 7 Active Pantoprazole Sodium 40 mg Orally Once a day 1 tablet 24h Jan, 30 day(s) Active RESULTS No Results PROCEDURES Procedure Date Ordered Result Body Site [facility] VISIT ESTABLISHED PATIENT Jul 30, 2018 INSTRUCTIONS MEDICATIONS ADMINISTERED No Known Medications MEDICAL (GENERAL) HISTORY Type Description Date Medical History Arthritis Medical History [place] with 2 stents Medical History chest pain Surgical History cardiac stent Surgical History cholecystectomy
--- OUTSIDE RECORDS SUMMARY | 2019-01-02 08:49 | XMS REPORT ---
Author Author NICOLAS CAMACHO Organization [facility] Address [address] [place] [address] Care Team Providers Care Electrical Checkout Mechanic Name Role Phone NICOLAS CAMACHO Unavailable PROBLEMS Type Condition ICD9-CM Code IRP11-IZ Code Onset Dates Condition Status SNOMED Code Problem Irregular cardiac rhythm I49.9 Active 119697356 Problem Gastritis, bile acid reflux K29.60 Active 58614111 Problem Arthritis M19.90 Active 2705789 Problem Coronary artery disease of [place] artery of [place] heart with stable angina pectoris I25.118 Active 2997351088943 Problem Panlobular emphysema J43.1 Active 0462776 ALLERGIES No Information ENCOUNTERS Encounter Location Date Diagnosis [facility] [address] [place] [id number] [place] [address] 94857- 4241 May, [facility] [address] [place] [id number] [place] [address] 95158- 0719 May, [facility] [address] [place] [id number] [place] [address] 61282- 8784 May, [facility] [address] [place] [id number] [place] [address] 00148- 1055 24 May, 2018 [facility] [address] [place] [id number] [place] [address] 24411- 6399 20 May, 2018 Coronary artery disease of [place] artery of [place] heart with stable angina pectoris I25.118 and Arthritis M19.90 [facility] [address] [address]- [address] 13 May, 2018 [facility] [address] [place] [id number] [place] [address] 64211- 0197 05 May, 2018 Black tarry stools K92.1 [facility] [address] 07104- 2696 Mar, Black tarry stools K92.1 ; Abdominal pain, left upper quadrant R10.12 and Arthritis M19.90 [place] [address] [place] [id number] [place] [address] 59083- 9551 Mar, Anemia, unspecified type D64.9 [place] [address] [place] [id number] [place] [address] 80346- 1556 Mar, Anemia, unspecified type D64.9 [place] [address] [place] [id number] [place] [address] 16252- 8658 Mar, [place] [address] [place] [id number] [place] [address] 87183- 2355 Mar, Anemia, unspecified type D64.9 [place] [address] [place] [id number] [place] [address] 11672- 7746 Mar, [place] [address] [place] [id number] [place] [address] 42414- 9853 Mar, [place] [address] [place] [id number] [place] [address] 79267- 0985 Mar, Irregular cardiac rhythm I49.9 ; Arthritis M19.90 ; Family history of early CAD Z82.49 ; SOB (shortness of breath) on exertion R06.02 ; Tobacco abuse Z72.0 ; Tobacco abuse counseling Z71.6 and Dysuria R30.0 [place] [address] [place] [id number] [place] [address] 46309- 9098 Mar, Arthritis M19.90 and Panlobular emphysema J43.1 [place] [address] [place] [id number] [place] [address] 68162- 1548 Feb, Arthritis M19.90 and Abdominal pain, left upper quadrant R10.12 [place] [address] [place] [id number] [place] [address] 98879- 3524 Jan, Panlobular emphysema J43.1 [place] [address] [place] [address]- 1792 13 Jan, 2018 Arthritis M19.90 ; Family history of rheumatoid arthritis Z82.61 ; Gastritis, bile acid reflux K29.60 and Anemia, unspecified type D64.9 [facility] [address] [address]- [address] December, [place] [address] [place] [address] 88509- 4211 December, Panlobular emphysema J43.1 ; Arthritis M19.90 and Coronary artery disease of [place] artery of [place] heart with stable angina pectoris I25.118 [place] [address] [place] [address] 90499- 4897 16 Nov, 2017 Coronary artery disease of [place] artery of [place] heart with stable angina pectoris I25.118 ; Arthritis M19.90 ; Panlobular emphysema J43.1 and Coughing R05 IMMUNIZATIONS No Known Immunizations SOCIAL HISTORY Never Assessed REASON FOR VISIT Refill request PLAN OF CARE VITAL SIGNS MEDICATIONS Unknown Medications RESULTS No Results PROCEDURES No Known procedures INSTRUCTIONS MEDICATIONS ADMINISTERED No Known Medications MEDICAL (GENERAL) HISTORY Type Description Date Medical History Arthritis Medical History [place] with 2 stents Surgical History cardiac stent Surgical History cholecystectomy
--- OUTSIDE RECORDS SUMMARY | 2019-01-02 08:49 | XMS REPORT ---
Author Author NICOLAS CAMACHO Organization [facility] Address [address] [place] [address] Care Team Providers Care Painter Apprentice Name Role Phone NICOLAS CAMACHO Unavailable PROBLEMS Type Condition ICD9-CM Code [id number] Code Onset Dates Condition Status SNOMED Code Problem Tobacco abuse Z72.0 Active 57518135 Problem Irregular cardiac rhythm I49.9 Active 972197778 Problem Arthritis M19.90 Active 3614740 Problem Panlobular emphysema J43.1 Active 1780797 Problem Gastritis, bile acid reflux K29.60 Active 62478241 Problem Coronary artery disease of [place] artery of [place] heart with stable angina pectoris I25.118 Active 2652384896998 ALLERGIES Substance Reaction Event Type Date Status Ibuprofen hives Drug Allergy May, Active ENCOUNTERS Encounter Location Date Diagnosis [facility] [address] [place] [address] 81751- 8222 May, Tobacco abuse Z72.0 [facility] [address] [place] [id number] [place] [address] 37749- 5402 May, Arthritis M19.90 [facility] [address] [place] [address] 02206- 8628 May, [facility] [address] [place] [id number] [place] [address] 08541- 5037 May, [facility] [address] [place] [id number] [place] [address] 15449- 7847 May, Coronary artery disease of [place] artery of [place] heart with stable angina pectoris I25.118 and Arthritis M19.90 [facility] [address] [place] [address] 43865- 2774 May, [facility] [address] 23508- 3968 05 May, 2018 Black tarry stools K92.1 [place] [address] [place] [id number] [place] [address] 08775- 0937 Mar, Black tarry stools K92.1 ; Abdominal pain, left upper quadrant R10.12 and Arthritis M19.90 [place] [address] [place] [id number] [place] [address] 74173- 1425 Mar, Anemia, unspecified type D64.9 [place] [address] [place] [id number] [place] [address] 34034- 1966 Mar, Anemia, unspecified type D64.9 [place] [address] 61835- 2571 Mar, [place] [address] 40060- 2788 Mar, Anemia, unspecified type D64.9 [place] [address] [place] [id number] [place] [address] 12852- 3024 Mar, [place] [address] [place] [id number] [place] [address] 04234- 5809 Mar, [place] [address] [place] [id number] [place] [address] 53576- 4914 Mar, Irregular cardiac rhythm I49.9 ; Arthritis M19.90 ; Family history of early CAD Z82.49 ; SOB (shortness of breath) on exertion R06.02 ; Tobacco abuse Z72.0 ; Tobacco abuse counseling Z71.6 and Dysuria R30.0 [place] [address] [place] [address] 52627- 5709 Mar, Arthritis M19.90 and Panlobular emphysema J43.1 [place] [address] [place] [id number] [place] [address] 94230- 2588 Feb, Arthritis M19.90 and Abdominal pain, left upper quadrant R10.12 [place] [address] [place] [id number] [place] [address] 79416- 1909 Jan, Panlobular emphysema J43.1 [place] [address] [place] [address] 29662- 2424 Jan, Arthritis M19.90 ; Family history of rheumatoid arthritis Z82.61 ; Gastritis, bile acid reflux K29.60 and Anemia, unspecified type D64.9 [place] [address] [place] [address] 07175- 4505 December, [place] [address] [place] [address] 64991- 5584 December, Panlobular emphysema J43.1 ; Arthritis M19.90 and Coronary artery disease of [place] artery of [place] heart with stable angina pectoris I25.118 [place] [address] [place] [address] 61698- 9273 Nov, Coronary artery disease of [place] artery of [place] heart with stable angina pectoris I25.118 ; Arthritis M19.90 ; Panlobular emphysema J43.1 and Coughing R05 IMMUNIZATIONS No Known Immunizations SOCIAL HISTORY Never Assessed REASON FOR VISIT Arthritis - Everardo NEGRON PLAN OF CARE VITAL SIGNS Height 70 in 2018-06-21 Weight 162.4 lbs 2018-06-21 Temperature 97.8 degrees Fahrenheit 2018-06-21 Heart Rate 78 bpm 2018-06-21 Respiratory Rate 18 2018-06-21 Oximetry 98 % 2018-06-21 BMI 23.30 kg/m2 2018-06-21 Blood pressure systolic 143 mmHg 2018-06-21 Blood pressure diastolic 90 mmHg 2018-06-21 MEDICATIONS Medication Instructions Dosage Frequency Start Date End Date Duration Status [place] 7.5-325 MG Orally every 6 hrs 1 tablet as needed 6h May, 28 days Active Plavix 75 MG Orally Once a day 1 tablet 24h 30 days Active Lisinopril 20 mg Orally Once a day 1 tablet 24h Mar, 30 day(s) Active Restoril 15 mg Orally Once a day 1 capsule at bedtime as needed 24h December 28 days Active Ferrous Sulfate 325 (65 Fe) MG Orally Once a day 1 tablet 24h Jan, 30 day(s) Active Nitroglycerin 0.4 MG Active Promethazine HCl 25 MG Orally every 6 hrs 1 tablet as needed 6h 7 Active Pantoprazole Sodium 40 mg Orally Once a day 1 tablet 24h 13 Jan, 2018 30 day(s) Active RESULTS No Results PROCEDURES Procedure Date Ordered Result Body Site [facility] VISIT ESTABLISHED PATIENT Jun 21, 2018 INSTRUCTIONS MEDICATIONS ADMINISTERED No Known Medications MEDICAL (GENERAL) HISTORY Type Description Date Medical History Arthritis Medical History [place] with 2 stents Surgical History cardiac stent Surgical History cholecystectomy
--- OUTSIDE RECORDS SUMMARY | 2019-01-02 08:49 | XMS REPORT ---
Author Author NICOLAS CAMACHO Organization [facility] Address [address] [place] [address] Care Team Providers Care Power Station Operator Name Role Phone NICOLAS CAMACHO Unavailable PROBLEMS Type Condition ICD9-CM Code [id number] Code Onset Dates Condition Status SNOMED Code Problem Irregular cardiac rhythm I49.9 Active 421943824 Problem Gastritis, bile acid reflux K29.60 Active 92300443 Problem Arthritis M19.90 Active 1504484 Problem Coronary artery disease of [place] artery of [place] heart with stable angina pectoris I25.118 Active 8759094710641 Problem Panlobular emphysema J43.1 Active 7810639 ALLERGIES No Information ENCOUNTERS Encounter Location Date Diagnosis [place] [id number] [place] [id number] [place] [address] 68406- 9005 May, [place] [address] [place] [id number] [place] [address] 73290- 6896 May, [place] [address] [place] [id number] [place] [address] 06312- 8663 24 May, 2018 [place] [address] [place] [id number] [place] [address] 36585- 8284 20 May, 2018 Coronary artery disease of [place] artery of [place] heart with stable angina pectoris I25.118 and Arthritis M19.90 [facility] [address] [place] [address] 97918- 6510 May, [place] [address] [place] [id number] [place] [address] 01482- 1732 05 May, 2018 Black tarry stools K92.1 [facility] [address] [place] [id number] [place] [address] 61536- 8048 Mar, Black tarry stools K92.1 ; Abdominal pain, left upper quadrant R10.12 and Arthritis M19.90 [place] [address] [place] [address] 26269- 0115 Mar, Anemia, unspecified type D64.9 [place] [address] [place] [id number] [place] [address] 12198- 7362 Mar, Anemia, unspecified type D64.9 [place] [address] [place] [id number] [place] [address] 39956- 9339 Mar, [place] [address] [place] [id number] [place] [address] 40646- 5216 Mar, Anemia, unspecified type D64.9 [place] [address] [place] [id number] [place] [address] 86442- 8421 Mar, [place] [address] [place] [id number] [place] [address] 03622- 1074 Mar, [place] [address] [place] [id number] [place] [address] 68117- 8691 Mar, Irregular cardiac rhythm I49.9 ; Arthritis M19.90 ; Family history of early CAD Z82.49 ; SOB (shortness of breath) on exertion R06.02 ; Tobacco abuse Z72.0 ; Tobacco abuse counseling Z71.6 and Dysuria R30.0 [place] [address] [place] [id number] [place] [address] 09555- 5710 Mar, Arthritis M19.90 and Panlobular emphysema J43.1 [place] [address] [place] [id number] [place] [address] 48725- 0238 Feb, Arthritis M19.90 and Abdominal pain, left upper quadrant R10.12 [place] [address] [place] [id number] [place] [address] 88145- 6431 Jan, Panlobular emphysema J43.1 [place] [address] [place] [id number] [place] [address] 89717- 1779 Jan, Arthritis M19.90 ; Family history of rheumatoid arthritis Z82.61 ; Gastritis, bile acid reflux K29.60 and Anemia, unspecified type D64.9 [place] [address] [facility] [id number] [address]- 5[address] December, [place] [address] [address]- 4041 December, Panlobular emphysema J43.1 ; Arthritis M19.90 and Coronary artery disease of [place] artery of [place] heart with stable angina pectoris I25.118 [place] [address] [facility] [id number] [address]- 6893 Nov, Coronary artery disease of [place] artery of [place] heart with stable angina pectoris I25.118 ; Arthritis M19.90 ; Panlobular emphysema J43.1 and Coughing R05 IMMUNIZATIONS No Known Immunizations SOCIAL HISTORY Never Assessed REASON FOR VISIT request return call PLAN OF CARE VITAL SIGNS MEDICATIONS Unknown Medications RESULTS No Results PROCEDURES No Known procedures INSTRUCTIONS MEDICATIONS ADMINISTERED No Known Medications MEDICAL (GENERAL) HISTORY Type Description Date Medical History Arthritis Medical History [place] with 2 stents Surgical History cardiac stent Surgical History cholecystectomy
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
[2019-01-02 09:19] LABS: BASOPHILS % (AUTO) 0 % (0-10); EOSINOPHILS # (AUTO) 0.1 10^3/uL (0.0-0.3); EOSINOPHILS % (AUTO) 1 % (0-10); HEMATOCRIT 25 % (40-54); HEMOGLOBIN 7.3 G/DL (13.3-17.7); LYMPHOCYTES # (AUTO) 1.8 X 10^3 (1.0-4.0); LYMPHOCYTES % (AUTO) 19 % (12-44); MEAN CORPUSCULAR HEMOGLOBIN 21 PG (25-34); MEAN CORPUSCULAR HGB CONC 30 G/DL (32-36); MEAN CORPUSCULAR VOLUME 71 FL (80-99); MEAN PLATELET VOLUME 8.2 FL (7.4-10.4); MONOCYTES # (AUTO) 0.7 X 10^3 (0.0-1.0); MONOCYTES % (AUTO) 7 % (0-12); NEUTROPHILS # (AUTO) 6.7 X 10^3 (1.8-7.8); NEUTROPHILS % (AUTO) 73 % (42-75); PLATELET COUNT 473 10^3/uL (130-400); RED CELL DISTRIBUTION WIDTH 26.5 % (10.0-14.5); WHITE BLOOD COUNT 9.2 10^3/uL (4.3-11.0)
[2019-01-02] MEDS ORDERED: ONDANSETRON 4 MG/2 ML (SDV) Z0FRAN ONE (09:34)
[2019-01-02 09:39] LABS: ALANINE AMINOTRANSFERASE 7 U/L (0-55); ALBUMIN 3.5 GM/DL (3.2-4.5); ALKALINE PHOSPHATASE 87 U/L (40-136); BILIRUBIN,TOTAL 0.4 MG/DL (0.1-1.0); BUN/CREATININE RATIO 7; CARBON DIOXIDE 22 MMOL/L (21-32); CHLORIDE 98 MMOL/L (98-107); CREATININE SERUM 0.72 MG/DL (0.60-1.30); GFR ESTIMATED > 60; GLUCOSE 118 MG/DL (70-105); POTASSIUM 3.1 MMOL/L (3.6-5.0); SODIUM 127 MMOL/L (135-145); TOTAL PROTEIN 6.3 GM/DL (6.4-8.2)
--- NOTE | 2019-01-02 09:43 | NUR ---
SEE LIST FOR CURRENT MEDS
[2019-01-02] MEDS ORDERED: fentaNYL INJECTION 100 MCG/2 ML AMP ONE (09:54)
[2019-01-02] MEDS ORDERED: fentaNYL INJECTION 100 MCG/2 ML AMP IVP STA (09:55)
--- NOTE | 2019-01-02 10:19 | ED Abdominal Pain ---
General Chief Complaint: Abdominal/GI Problems Stated Complaint: ABD PAIN Nursing Triage Note: PT ARRIVED PER EMS PT CO OF ABD PAIN, PT STATES IS HAVING N/V AND BLACK STOOLS. HAS BEEN SICK SINCE THURSDAY, STATES HAD GOTTEN 2 UNITS OF BLOOD LAST THURSDAY. PT IS PALE A&O. PT HAS SL IN L AC, NS INFUSING AT OPEN Sepsis Screen: No Definite Risk Source of Information: Patient Exam Limitations: No Limitations History of Present Illness Date Seen by Provider: January 02, 2019 Time Seen by Provider: 10:00 Initial Comments Here with report of nausea and vomiting as well as black/tarry stools that has been going on for the last 2 days. Did get an infusion of 2 units of blood last Thursday due to hemoglobin of 5. His hemoglobin was later 9 after that as doctor' s office that he is concerned about continued bleeding. Has vomited coffee- ground type material. Patient is color blind says unable to tell color but states that the stool consistency is been a problem and he coffee-ground looking emesis has been a problem. IV established by EMS and they did give Zofran 4 mg IV and 50 g IV. That has helped some. He has not had CT scan recently but did have a colonoscopy about 7 months ago and had 2 polyps found. Has not had imaging sounds. Does complain of left-sided pain that his left lower quadrant informs kind of a C-shaped down towards suprapubic area. Timing/Duration: 1 Week, Getting Worse Severity/Quality: Moderate, Cramping Location: LLQ Radiation: Other (suprapubic) Modifying Factors: Improves With Defecating Associated Symptoms: Back Pain (chronic); No Chest Pain, No Fever/Chills; Nausea/Vomiting; No Shortness of Air; Weakness Allergies and Home Medications Allergies Coded Allergies: ibuprofen (Verified Allergy, Unknown, 05/28/18) Home Medications Aspirin 325 Mg Tablet, 325 MG PO DAILY, (Reported) Atenolol 25 Mg Tablet, 25 MG PO DAILY, (Reported) Clopidogrel Bisulfate 75 Mg Tablet, PO DAILY, (Reported) Hydrocodone/Acetaminophen 1 Each Tablet, 1 EACH PO Q6H PRN for PAIN-MODERATE, ( Reported) Nitroglycerin 0.4 Mg Tab.subl, 0.4 MG SL UD PRN for CHEST PAIN, (Reported) Pantoprazole Sodium 40 Mg Tablet.dr, 40 MG PO DAILY Prescribed by: JEWELL WEI on 06/01/18 1622 Penicillin V Potassium 500 Mg Tablet, 500 MG PO DAILY, (Reported) Pravastatin Sodium 40 Mg Tablet, 40 MG PO DAILY, (Reported) Promethazine HCl 25 Mg Tablet, PO Q6H PRN for NAUSEA/VOMITING, (Reported) Patient Home Medication List Home Medication List Reviewed: Yes Review of Systems Review of Systems Constitutional: see HPI; No chills, No fever EENTM: No Symptoms Reported Respiratory: Denies Cough, Denies Shortness of Air Cardiovascular: Denies Chest Pain, Denies Edema Gastrointestinal: Abdominal Pain, Nausea, Rectal Bleeding, Vomiting Genitourinary: No Symptoms Reported Musculoskeletal: back pain, joint pain Skin: no symptoms reported Psychiatric/Neurological: No Symptoms Reported All Other Systems Reviewed Negative Unless Noted: Yes Past Tkcbqao-Tqwbni-Vmczhv Hx Past Med/Social Hx: Reviewed Nursing Past Med/Soc Hx Patient Social History Alcohol Use: Denies Use Recreational Drug Use: No Smoking Status: Current Everyday Smoker Type Used: Cigarettes Recent Foreign Travel: No Contact w/Someone Who Travel: No Recent Infectious Disease Expo: No Recent Hopitalizations: No Physical Abuse: No Sexual Abuse: No Seasonal Allergies Seasonal Allergies: No Past Medical History Surgeries: Yes Coronary Stent, Gallbladder Respiratory: No Cardiac: Yes (STENTS X2) Coronary Artery Disease, Heart Attack, High Cholesterol, Hypertension Neurological: No Reproductive Disorders: No Sexually Transmitted Disease: No HIV/AIDS: No Gastrointestinal: No (BLOOD ) Musculoskeletal: Yes (SJOGREN'S SYNDROME) Arthritis Endocrine: No Cancer: No Psychosocial: No Integumentary: No Blood Disorders: No Family Medical History Reviewed Nursing Family Hx Physical Exam Vital Signs Vital Signs - First Documented 01/02/19 08:40 Temp 97.6 Pulse 77 Resp 18 B/P (MAP) 151/93 (112) Pulse Ox 100 Capillary Refill : Less Than 3 Seconds Height/Weight/BMI Height: 6'2.00" Weight: 185lbs. 0.0oz. 83.825555to; 21.2 BMI Method:Stated General Appearance: WD/WN, no apparent distress HEENT: PERRL/EOMI, pharynx normal Neck: full range of motion, supple Respiratory: no accessory muscle use, crackles (throughout right lung); No wheezing Cardiovascular: regular rate, rhythm, no murmur Peripheral Pulses: 2+ Dorsalis Pedis (R), 2+ Left Dors-Pedis (L), 2+ Radial Pulses (R), 2+ Radial Pulses (L) Gastrointestinal: soft, tenderness (left lower quadrant) Rectal: heme negative stool, black stool Genital/Rectal: tenderness (mild rectal tenderness), other (no obvious mass and no stool of any significance in the rectal vault.) Extremities: non-tender, normal inspection Back: normal inspection, no CVA tenderness, no vertebral tenderness Neurologic/Psychiatric: alert, oriented x 3 Skin: normal color, warm/dry Progress/Results/Core Measures Results/Orders Lab Results Laboratory Tests Test 01/02/19 09:10 01/02/19 10:30 Range/Units White Blood Count 9.2 4.3-11.0 10^3/uL Red Blood Count 3.48 L 4.35-5.85 10^6/uL Hemoglobin 7.3 L 13.3-17.7 G/DL Hematocrit 25 L 40-54 % Mean Corpuscular Volume 71 L 80-99 FL Mean Corpuscular Hemoglobin 21 L 25-34 PG Mean Corpuscular Hemoglobin Concent 30 L 32-36 G/DL Red Cell Distribution Width 26.5 H 10.0-14.5 % Platelet Count 473 H 130-400 10^3/uL Mean Platelet Volume 8.2 7.4-10.4 FL Neutrophils (%) (Auto) 73 42-75 % Lymphocytes (%) (Auto) 19 12-44 % Monocytes (%) (Auto) 7 0-12 % Eosinophils (%) (Auto) 1 0-10 % Basophils (%) (Auto) 0 0-10 % Neutrophils # (Auto) 6.7 1.8-7.8 X 10^3 Lymphocytes # (Auto) 1.8 1.0-4.0 X 10^3 Monocytes # (Auto) 0.7 0.0-1.0 X 10^3 Eosinophils # (Auto) 0.1 0.0-0.3 10^3/uL Basophils # (Auto) 0.0 0.0-0.1 10^3/uL Sodium Level 127 L 135-145 MMOL/L Potassium Level 3.1 L 3.6-5.0 MMOL/L Chloride Level 98 98-107 MMOL/L Carbon Dioxide Level 22 21-32 MMOL/L Anion Gap 7 5-14 MMOL/L Blood Urea Nitrogen 5 L 7-18 MG/DL Creatinine 0.72 0.60-1.30 MG/DL Estimat Glomerular Filtration Rate > 60 BUN/Creatinine Ratio 7 Glucose Level 118 H 70-105 MG/DL Calcium Level 8.0 L 8.5-10.1 MG/DL Corrected Calcium 8.4 L 8.5-10.1 MG/DL Total Bilirubin 0.4 0.1-1.0 MG/DL Aspartate Amino Transf (AST/SGOT) 9 5-34 U/L Alanine Aminotransferase (ALT/SGPT) 7 0-55 U/L Alkaline Phosphatase 87 40-136 U/L Total Protein 6.3 L 6.4-8.2 GM/DL Albumin 3.5 3.2-4.5 GM/DL Urine Color YELLOW Urine Clarity CLEAR Urine pH 8 5-9 Urine Specific Ambler 1.010 L 1.016-1.022 Urine Protein NEGATIVE NEGATIVE Urine Glucose (UA) NEGATIVE NEGATIVE Urine Ketones NEGATIVE NEGATIVE Urine Nitrite NEGATIVE NEGATIVE Urine Bilirubin NEGATIVE NEGATIVE Urine Urobilinogen NORMAL NORMAL MG/DL Urine Leukocyte Esterase NEGATIVE NEGATIVE Urine RBC (Auto) 2+ H NEGATIVE Urine RBC 2-5 H /HPF Urine WBC NONE /HPF Urine Crystals NONE /LPF Urine Bacteria NEGATIVE /HPF Urine Casts NONE /LPF Urine Mucus NEGATIVE /LPF Urine Culture Indicated NO My Orders Orders - MARIA ISABEL BARRIGA MD Cbc With Automated Diff (01/02/19 08:57) Comprehensive Metabolic Panel (01/02/19 08:57) Ondansetron Injection (Zofran Injectio (01/02/19 09:34) Ct Abdomen/Pelvis W (01/02/19 09:55) Ua Culture If Indicated (01/02/19 09:55) Red Cells Leukocytes Reduced (01/02/19 09:55) Fentanyl Injection (Sublimaze Injection (01/02/19 09:55) Type And Screen (01/02/19 09:55) Fentanyl Injection (Sublimaze Injection (01/02/19 09:54) Iohexol Injection (Omnipaque 350 Mg/Ml 1 (01/02/19 10:45) Received Contrast (Hold Metformin- Contr (01/02/19 10:45) Medications Given in ED Current Medications Medications Dose Ordered Sig/Livia Route Start Time Stop Time Status Last Admin Dose Admin Iohexol 100 ml ONCE ONCE IV 01/02/19 10:45 01/02/19 10:46 DC 01/02/19 10:53 100 ML Ondansetron HCl 4 mg STK-MED ONCE .ROUTE 01/02/19 09:34 01/02/19 09:38 DC 01/02/19 09:40 4 MG Vital Signs/I&O 01/02/19 08:40 Temp 97.6 Pulse 77 Resp 18 B/P (MAP) 151/93 (112) Pulse Ox 100 Blood Pressure Mean: 112 Progress Progress Note : Progress Note Seen and evaluated. Labs, UA, and fentanyl 75 g IV and Zofran [address] abdomen pelvis ordered. He has received 1 L normal saline from EMS. We will type and cross for 2 units and hold given his current hemoglobin and his loss of 2 g since last week. Monitor patient. 1125: I did discuss the case with Dr. Wei and he accepts patient for consult. 1127: I did discuss the case with Dr. Alvares and he accepts patient for admission for the GI bleed concerns and for transfusion of 2 units of packed red blood cells. This will be done when he arrives to the floor. Blood is ready. Findings and concerns were discussed with the patient and family who agree. Admit, inpatient status. The aortic aneurysm was noted and has increased in size since 2013 but still is less than 4 cm and there is no findings concerning for rupture or dissection. Diagnostic Imaging Diagonstic Imaging: CT Plain Films/CT/US/NM/MRI: abdomen, pelvis Comments [facility]. [place], [place] NAME: ZARA ALEJANDRO [employer] REC#: [id number] PT STATUS: REG ER : 1950 PHYSICIAN: MARIA ISABEL BARRIGA MD ADMIT DATE: 01/02/19/ER Draft Date of Exam:01/02/19 CT ABDOMEN/PELVIS W PROCEDURE: CT abdomen and pelvis with contrast. TECHNIQUE: Multiple contiguous axial images were obtained through the abdomen and pelvis after administration of intravenous contrast. Auto Exposure Controls were utilized during the CT exam to meet ALARA standards for radiation dose reduction. INDICATION: Abdominal pain. COMPARISON: CT abdomen and pelvis with IV contrast 09/30/2013. The lung bases are clear. Cholecystectomy. There are couple moderately distended loops of small bowel in the left upper quadrant. No discrete transition point. The remaining small bowel is relatively normal in caliber. No pneumatosis. No free intraperitoneal air or fluid. Simple cyst in the right kidney measures up to 2.5 cm and is stable. The liver, pancreas, spleen, adrenals, left kidney, collecting systems and partially opacified bladder are negative. No lymphadenopathy. Infrarenal abnormal aorta aneurysm measuring up to 3.9 x 3.8 cm, previously 2.[address] evidence of impending rupture. Moderate to advance spondylytic changes in the lumbar spine are greatest at L5-S1. There are chronic bilateral L5 pars defects. No acute osseous findings. IMPRESSION: 1. Moderately distended proximal small bowel loops in the left upper quadrant are nonspecific. There is no focal transition point. No pneumatosis. No free intraperitoneal air or fluid. Remaining bowel is unremarkable. 2. Interval growth of the infrarenal abdominal aortic aneurysm now measures up to 3.9 cm, previously 2.8 cm in diameter. 3. Additional chronic and incidental findings as above Dictated on workstation # [id number] Dict: 01/02/19 1110 Trans: 01/02/19 1119 [facility] [id number] Interpreted by: TIERRA HITCHCOCK MD Electronically signed by: Departure Communication (Admissions) Time/Spoke to Admitting Phy: 11:27 Impression Primary Impression: Acute GI bleeding Additional Impression: Anemia Qualified Codes: D64.9 - Anemia, unspecified Disposition: ADMITTED INPATIENT Condition: Stable Admissions Decision to Admit Reason: Admit from ER (General) Decision to Admit/Date: January 02, 2019 Time/Decision to Admit Time: 11:27 Departure-Patient Inst. Referrals: [facility] (PCP) Primary Care Physician NICOLAS CAMACHO (Family) Primary Care Physician MARIA ISABEL BARRIGA MD January 02, 2019 10:19
[2019-01-02] MEDS ORDERED: HOLD METFORMIN - RECEIVED CONTRAST 20 ML VIAL IV SCH (10:45)
[2019-01-02] MEDS ORDERED: IOHEXOL 350 MG/ML 100 ML (OMNIPAQUE 350) VIAL IV ONE (10:45)
[2019-01-02 10:55] LABS: BILIRUBIN,URINE NEGATIVE (NEGATIVE); CLARITY,URINE CLEAR; COLOR,URINE YELLOW; GLUCOSE, URINE (UA) NEGATIVE (NEGATIVE); KETONES,URINE NEGATIVE (NEGATIVE); LEUKOCYTE ESTERASE ,URINE NEGATIVE (NEGATIVE); NITRITE,URINE NEGATIVE (NEGATIVE); PH,URINE 8 (5-9); PROTEIN,URINE NEGATIVE (NEGATIVE); UROBILINOGEN,URINE NORMAL (NORMAL)
[2019-01-02 11:03] LABS: BACTERIA,URINE NEGATIVE /HPF
--- NOTE | 2019-01-02 11:20 | Diagnostic Imaging Report ---
PROCEDURE: CT abdomen and pelvis with contrast. TECHNIQUE: Multiple contiguous axial images were obtained through the abdomen and pelvis after administration of intravenous contrast. Auto Exposure Controls were utilized during the CT exam to meet ALARA standards for radiation dose reduction. INDICATION: Abdominal pain. COMPARISON: CT abdomen and pelvis with IV contrast 09/30/2013. The lung bases are clear. Cholecystectomy. There are couple moderately distended loops of small bowel in the left upper quadrant. No discrete transition point. The remaining small bowel is relatively normal in caliber. No pneumatosis. No free intraperitoneal air or fluid. Simple cyst in the right kidney measures up to 2.5 cm and is stable. The liver, pancreas, spleen, adrenals, left kidney, collecting systems and partially opacified bladder are negative. No lymphadenopathy. Infrarenal abnormal aorta aneurysm measuring up to 3.9 x 3.8 cm, previously 2.[address] evidence of impending rupture. Moderate to advance spondylytic changes in the lumbar spine are greatest at L5-S1. There are chronic bilateral L5 pars defects. No acute osseous findings. IMPRESSION: 1. Moderately distended proximal small bowel loops in the left upper quadrant are nonspecific. There is no focal transition point. No pneumatosis. No free intraperitoneal air or fluid. Remaining bowel is unremarkable. 2. Interval growth of the infrarenal abdominal aortic aneurysm now measures up to 3.9 cm, previously 2.8 cm in diameter. 3. Additional chronic and incidental findings as above Dictated by: Dictated on workstation # [id number]
--- OUTSIDE RECORDS SUMMARY | 2019-01-02 11:59 | XMS REPORT | Continuity of Care Document ---
Author Organization Unknown Address Unknown Allergies Active Description Code Type Severity Reaction Onset Reported/Identified Relationship to Patient Clinical Status Yes ibuprofen [id number] Drug Allergy Unknown N/A 05/28/2018 Medications There [...] SUTTON DO Ot 414.01 CORONARY ATHEROSCLEROSIS OF [place] CORON 09/15/2013 NEDRA SUTTON DO Ot 441.4 [...] DO Ot 787.01 NAUSEA WITH VOMITING 09/15/2013 ENDRA SUTTON DO Ot 787.20 DYSPHAGIA, UNSPECIFIED 09/15/2013 [...] SUTTON DO Ot 414.01 CORONARY ATHEROSCLEROSIS OF [place] CORON 09/21/2013 LESLEY MCCABE NEDRA Dukes Ot [...] BARRIGA MD Ot 414.01 CORONARY ATHEROSCLEROSIS OF [place] CORON 03/19/2014 MARIA ISABEL BARRIGA MD Ot [...] GELLENDER DO, NEDRA Dukes Ot Z79.899 OTHER RESIDENTIAL (CURRENT) DRUG THERAPY 08/28/2016 GELLENDER DO, NEDRA Dukes Ot Z51.81 ENCOUNTER FOR THERAPEUTIC DRUG LEVEL MON 08/28/2016 GELLENDER DO, NEDRA Dukes Ot Z79.899 OTHER EXTRUSION MANAGER (CURRENT) DRUG THERAPY 04/20/2018 GELLENDER DO, NEDRA Dukes Ot 789.09 ABDOMINAL PAIN, OTHER SPECIFIED SITE 04/20/2018 GELLENDER DO, NEDRA Dukes Ot Z51.81 ENCOUNTER FOR THERAPEUTIC DRUG LEVEL MON 04/20/2018 GELLENDER DO, NEDRA Dukes Ot Z79.899 OTHER RESIDENTIAL (CURRENT) DRUG THERAPY 04/21/2018 NICOLAS CAMACHO Ot [...] DO Ot I25.10 ATHSCL HEART DISEASE OF [place] CORONARY 06/01/2018 JEWELL WEI DO Ot K29.70 GASTRITIS, UNSPECIFIED, WITHOUT BLEEDING 06/01/2018 JEWELL WEI DO Ot M06.9 RHEUMATOID ARTHRITIS, UNSPECIFIED 06/01/2018 WEI DO JEWELL D Ot Z79.02 RESIDENTIAL (CURRENT) USE OF ANTITHROMBOTI 06/04/2018 WEI DOJEWELL D Ot D12.5 BENIGN NEOPLASM OF SIGMOID COLON 06/04/2018 WEI DO JEWELL D Ot D50.9 IRON DEFICIENCY ANEMIA, UNSPECIFIED 06/04/2018 WEI DO JEWELL D Ot E78.5 HYPERLIPIDEMIA, UNSPECIFIED 06/04/2018 WEI DO JEWELL D Ot F17.210 NICOTINE DEPENDENCE, CIGARETTES, UNCOMPL 06/04/2018 WIE DO JEWELL D Ot I25.10 ATHSCL HEART DISEASE OF [place] CORONARY 06/04/2018 WEI DOJEWELL D Ot K29.70 GASTRITIS, UNSPECIFIED, WITHOUT BLEEDING 06/04/2018 WEI DOJEWELL D Ot M06.9 RHEUMATOID ARTHRITIS, UNSPECIFIED 06/04/2018 [facility] Z79.02 RESIDENTIAL (CURRENT) USE OF ANTITHROMBOTI Procedures Code Description [...] 9.3 fL 7.5-12.5 ABSOLUTE NEUTROPHILS 6215 cells/uL 1656-5288 ABSOLUTE LYMPHOCYTES 3797 cells/uL 850-3900 ABSOLUTE MONOCYTES 836 cells/uL 200-950 ABSOLUTE EOSINOPHILS 373 cells/uL 15-500 ABSOLUTE BASOPHILS 79 cells/uL 0-200 NEUTROPHILS 55 % NRG LYMPHOCYTES 33.6 % NRG MONOCYTES 7.4 % NRG EOSINOPHILS 3.3 % NRG BASOPHILS 0.7 % NRG Encounters ACCT No. Visit Date/Time Discharge Status Pt. Type Provider Facility Loc./Unit Complaint [id number] 06/01/2018 12:34:00 06/01/2018 16:45:00 DIS Outpatient JEWELL WEI DO [facility] ENDO IRON DEF ANEMIA/BLACK STOOLS [id number] 05/28/2018 13:36:00 05/28/2018 13:45:00 DIS Outpatient JEWELL WEI DO [facility] PREOP COLONOSCOPY [id number] 04/21/2018 06:47:00 04/21/2018 23:59:59 CLS Outpatient NICOLAS CAMACHO [facility] LAB ANEMIA [id number] 08/04/2016 11:07:00 08/04/2016 23:59:59 CLS Outpatient NEDRA SUTTON DO [facility] LAB URINE DRUG SCREEN [id number] 12/25/2014 13:32:00 12/25/2014 23:59:59 CLS Outpatient NEDRA SUTTON DO [facility] LAB HURTS ON LT SIDE, ABD PAIN [id number] 03/19/2014 12:47:00 03/19/2014 14:06:00 DIS Emergency MARIA ISABEL BARRIGA MD [facility] ER ROBERT ON L FOOT [id number] 09/30/2013 14:36:00 09/30/2013 17:35:00 DIS Emergency MARIA ISABEL BARRIGA MD [facility] ER L RIB PAIN [id number] 09/19/2013 07:26:00 09/21/2013 08:30:00 DIS Inpatient NEDRA SUTTON DO [facility] SURGICAL ACUTE CHOLECYSTITIS [id number] 09/15/2013 05:30:00 09/15/2013 16:48:00 DIS Inpatient NEDRA SUTTON DO [facility] CSD CHEST PAIN;NAUSEA VOMITING [id number] 12/25/2014 13:31:00 Document Registration [id number] 08/30/2012 16:09:00 Document Registration [id number] 07/30/2018 08:00:00 07/30/2018 23:59:59 [facility] Outpatient NICOLAS CAMACHO APRN [facility] [id number] 04/26/2018 08:00:00 Document Registration [id number] 04/15/2018 08:00:00 Document Registration
--- NOTE | 2019-01-02 12:05 | NUR ---
ZARA ALEJANDRO admitted to room 406-1, with an admitting diagnosis of GI BLEED, on 01/02/19 from ED via WC, accompanied by STAFF AND FAMILY. ZARA ALEJANDRO introduced to surroundings, call light, bed controls, phone, TV, temperature control, lights, meal times, smoking policy, visitor policy, side rail policy, bathrooms and showers. Patient Rights given to patient in the handbook. ZARA ALEJANDRO verbalizes understanding that [facility] is not responsible for the loss or damage to any personal effects or valuables that are kept in the patients posession during their hospitalization. ZARA ALEJANDRO verbalizes understanding of Interdisciplinary Patient Education. Patient and/or family were informed about the Rapid Response Team and its purpose.
[2019-01-02] MEDS ORDERED: NS IV 500 ML 500 ML ONE (12:25)
--- NOTE | 2019-01-02 14:13 | Consultation (Surgery) ---
History of Present Illness History of Present Illness Patient Consulted On(andriy/time) 01/02/19 14:07 Date Seen by Provider: January 02, 2019 Time Seen by Provider: 14:08 History of Present Illness Consult requested by Dr. Alvares for evaluation of anemia and possible GI bleed. Patient is a 68 year old male with left upper quadrant abdominal pain and anemia. He describes having this pain for many years however this has gradually worsened over the last five days. He does not identify anything that makes this pain better or worse. Two days ago, the patient also began having black tarry soft stools. The patient also reports having bouts of coffee ground emesis. The patient reports having a hemoglobin of 5 on Wednesday 12/27 and subsequently receiving 1 unit of blood. The patient underwent a colonoscopy and EGD on 05/2018 and was found to have 2 polyps consistent with tubular adenoma and also reactive gastropathy with erosion. Patient on Protonix regularly. He is also taking Plavix and Aspirin. CT scan on arrival showed moderate distension of proximal small bowel loops in left upper quadrant with no focal transition point. CT also demonstrated growth of an infrarenal abdominal aortic aneurysm now measuring 3.9 cm, having previously measured 2.8 cm in 2013. Allergies and Home Medications Allergies Coded Allergies: ibuprofen (Verified Allergy, Unknown, 01/02/19) Home Medications Aspirin 325 Mg Tablet, 325 MG PO DAILY, (Reported) Atenolol 25 Mg Tablet, 25 MG PO DAILY, (Reported) Clopidogrel Bisulfate 75 Mg Tablet, PO DAILY, (Reported) Hydrocodone/Acetaminophen 1 Each Tablet, 1 EACH PO Q6H PRN for PAIN-MODERATE, ( Reported) Nitroglycerin 0.4 Mg Tab.subl, 0.4 MG SL UD PRN for CHEST PAIN, (Reported) Pantoprazole Sodium 40 Mg Tablet.dr, 40 MG PO DAILY Prescribed by: JEWELL WEI on 06/01/18 1622 Penicillin V Potassium 500 Mg Tablet, 500 MG PO DAILY, (Reported) Pravastatin Sodium 40 Mg Tablet, 40 MG PO DAILY, (Reported) Promethazine HCl 25 Mg Tablet, PO Q6H PRN for NAUSEA/VOMITING, (Reported) Patient Home Medication List Home Medication List Reviewed: Yes Past Ieovcvc-Qbtood-Ektwoz Hx Patient Social History Alcohol Use: Denies Use Recreational Drug Use: No Smoking Status: Current Everyday Smoker Type Used: Cigarettes Recent Foreign Travel: No Contact w/Someone Who Travel: No Recent Infectious Disease Expo: No Recent Hopitalizations: No Seasonal Allergies Seasonal Allergies: No Surgeries History of Surgeries: Yes Surgeries: Coronary Stent, Gallbladder Respiratory History of Respiratory Disorde: No Cardiovascular History of Cardiac Disorders: Yes (STENTS X2) Cardiac Disorders: Coronary Artery Disease, Heart Attack, High Cholesterol, Hypertension Neurological History of Neurological Disord: No Reproductive System Hx Reproductive Disorders: No Sexually Transmitted Disease: No HIV/AIDS: No Gastrointestinal History of Gastrointestinal Di: No (BLOOD ) Musculoskeletal History of Musculoskeletal Dis: Yes (SJOGREN'S SYNDROME) Musculoskeletal Disorders: Arthritis Endocrine History of Endocrine Disorders: No Cancer History of Cancer: No Psychosocial History of Psychiatric Problem: No Integumentary History of Skin or Integumenta: No Blood Transfusions History of Blood Disorders: No Reviewed Nursing Assessment Reviewed/Agree w Nursing PMH: Yes Family Medical History Significant Family History: No Pertinent Family Hx Review of Systems-General Constitutional: no symptoms reported EENTM: no symptoms reported Respiratory: no symptoms reported Cardiovascular: no symptoms reported Gastrointestinal: LUQ (worsening pain), see HPI Genitourinary: no symptoms reported Musculoskeletal: no symptoms reported Skin: no symptoms reported Psychiatric/Neurological: No Symptoms Reported Physical Exam-General Problems Physical Exam Vital Signs Vital Signs - First Documented 01/02/19 01/02/19 08:40 12:37 Temp 97.6 Pulse 77 Resp 18 B/P (MAP) 151/93 (112) Pulse Ox 100 O2 Delivery Room Air Capillary Refill : Less Than 3 Seconds General Appearance: no apparent distress HEENT: PERRL/EOMI, normal ENT inspection Neck: non-tender, full range of motion, supple Respiratory: chest non-tender, no respiratory distress, no accessory muscle use Cardiovascular: regular rate, rhythm Gastrointestinal: soft, tenderness (Left upper quadrant minimal) Rectal: deferred Back: normal inspection Extremities: normal range of motion, non-tender, normal inspection Neurologic/Psychiatric: water mechanic II-XII nml as tested, no motor/sensory deficits, alert, normal mood/affect, oriented x 3 Skin: normal color, warm/dry Lymphatic: no adenopathy Data Review Labs Laboratory Tests 01/02/19 09:10: White Blood Count 9.2, Red Blood Count 3.48L, Hemoglobin 7.3L, Hematocrit 25L, Mean Corpuscular Volume 71L, Mean Corpuscular Hemoglobin 21L, Mean Corpuscular Hemoglobin Concent 30L, Red Cell Distribution Width 26.5H, Platelet Count 473H, Mean Platelet Volume 8.2, Neutrophils (%) (Auto) 73, Lymphocytes (%) (Auto) 19, Monocytes (%) (Auto) 7, Eosinophils (%) (Auto) 1, Basophils (%) (Auto) 0, Neutrophils # (Auto) 6.7, Lymphocytes # (Auto) 1.8, Monocytes # (Auto) 0.7, Eosinophils # (Auto) 0.1, Basophils # (Auto) 0.0, Sodium Level 127L, Potassium Level 3.1L, Chloride Level 98, Carbon Dioxide Level 22, Anion Gap 7, Blood Urea Nitrogen 5L, Creatinine 0.72, Estimat Glomerular Filtration Rate > 60, BUN/ Creatinine Ratio 7, Glucose Level 118H, Calcium Level 8.0L, Corrected Calcium 8.4L, Total Bilirubin 0.4, Aspartate Amino Transf (AST/SGOT) 9, Alanine Aminotransferase (ALT/SGPT) 7, Alkaline Phosphatase 87, Total Protein 6.3L, Albumin 3.5 01/02/19 10:30: Urine Color YELLOW, Urine Clarity CLEAR, Urine pH 8, Urine Specific Max 1.010L, Urine Protein NEGATIVE, Urine Glucose (UA) NEGATIVE, Urine Ketones NEGATIVE, Urine Nitrite NEGATIVE, Urine Bilirubin NEGATIVE, Urine Urobilinogen NORMAL, Urine Leukocyte Esterase NEGATIVE, Urine RBC (Auto) 2+H, Urine RBC 2-5H , Urine WBC NONE, Urine Crystals NONE, Urine Bacteria NEGATIVE, Urine Casts NONE , Urine Mucus NEGATIVE, Urine Culture Indicated NO Assessment/Plan Assessment/Plan Assessment/Plan Left upper quadrant abdominal pain Anemia from Possible GI bleed Nausea and vomiting AAA Hold plavix and ASA Follow Hgb Transfuse as needed Protonix 40mg BID Clear liquid diet Possible scope upper and lower inpatient vs outpatient Continue to monitor AAA on outpatient basis, instructed to keep follow up with PCP. Clinical Quality Measures DVT/VTE Risk/Contraindication: Risk Factor Score Per Nursin RFS Level Per Nursing on Admit: 3=High JEWELL WEI DO January 02, 2019 14:13
[2019-01-02] MEDS: PANTOPRAZOLE 40 MG (PROTONIX) VIAL IV SCH ×2 (15:01→20:30)
[2019-01-02] MEDS: morphine INJ 4 MG/ML 1 ML (VIAL/SYRINGE) IVP PRN ×4 (15:02→22:01)
[2019-01-02] MEDS ORDERED: ONDANSETRON 4 MG/2 ML (SDV) Z0FRAN IVP PRN (15:15)
[2019-01-02] MEDS ORDERED: RT-ALBUTEROL/IPRATROPIUM 3 ML (DUONEB) VIAL INH PRN (16:00)
--- NOTE | 2019-01-02 16:06 | History & Physicial (CHS) ---
HPI History of Present Illness: 68-year-old male presents to [facility] emergency department with reports of nausea and vomiting. He has also had black stools over the past 2 days. He does admit that he received 2 units of blood one week ago to a having a hemoglobin of 5. Per his report he also had a hemoglobin of 9 later that week at his doctor's office. He does admit that the stool consistency as not been stable and he has had coffee-ground emesis as well. Patient does admit that he had a colonoscopy 7 months ago were 2 polyps were found. There is also reports of lower abdominal discomfort primarily in the left lower quadrant. Source: patient Exam Limitations: clinical condition Date seen by provider: January 02, 2019 Time Seen by Provider: 16:00 Attending Physician Osiel Eastman MD [facility], [facility] Consult Date of Admission January 02, 2019 at 11:27 Home Medications Home Medications Reviewed patient Home Medication Reconciliation performed by pharmacy medication reconciliations food safety technician and/or nursing. Patients Allergies have been reviewed. Allergies Coded Allergies: ibuprofen (Verified Allergy, Unknown, 01/02/19) ENI-Bzkwtx-Zvbkkd Hx Patient Social History Alcohol Use: Denies Use Recreational Drug Use: No Smoking Status: Current Everyday Smoker Type Used: Cigarettes Recent Foreign Travel: No Contact w/other who traveled: No Recent Hopitalizations: No Recent Infectious Disease Expo: No Family Medical History Significant Family History: No Pertinent Family Hx Review of Systems ([facility]) Constitutional: see HPI Reviewed Test Results Reviewed Test Results Lab Laboratory Tests Test 01/02/19 09:10 01/02/19 10:30 Range/Units White Blood Count 9.2 4.3-11.0 10^3/uL Red Blood Count 3.48 L 4.35-5.85 10^6/uL Hemoglobin 7.3 L 13.3-17.7 G/DL Hematocrit 25 L 40-54 % Mean Corpuscular Volume 71 L 80-99 FL Mean Corpuscular Hemoglobin 21 L 25-34 PG Mean Corpuscular Hemoglobin Concent 30 L 32-36 G/DL Red Cell Distribution Width 26.5 H 10.0-14.5 % Platelet Count 473 H 130-400 10^3/uL Mean Platelet Volume 8.2 7.4-10.4 FL Neutrophils (%) (Auto) 73 42-75 % Lymphocytes (%) (Auto) 19 12-44 % Monocytes (%) (Auto) 7 0-12 % Eosinophils (%) (Auto) 1 0-10 % Basophils (%) (Auto) 0 0-10 % Neutrophils # (Auto) 6.7 1.8-7.8 X 10^3 Lymphocytes # (Auto) 1.8 1.0-4.0 X 10^3 Monocytes # (Auto) 0.7 0.0-1.0 X 10^3 Eosinophils # (Auto) 0.1 0.0-0.3 10^3/uL Basophils # (Auto) 0.0 0.0-0.1 10^3/uL Sodium Level 127 L 135-145 MMOL/L Potassium Level 3.1 L 3.6-5.0 MMOL/L Chloride Level 98 98-107 MMOL/L Carbon Dioxide Level 22 21-32 MMOL/L Anion Gap 7 5-14 MMOL/L Blood Urea Nitrogen 5 L 7-18 MG/DL Creatinine 0.72 0.60-1.30 MG/DL Estimat Glomerular Filtration Rate > 60 BUN/Creatinine Ratio 7 Glucose Level 118 H 70-105 MG/DL Calcium Level 8.0 L 8.5-10.1 MG/DL Corrected Calcium 8.4 L 8.5-10.1 MG/DL Total Bilirubin 0.4 0.1-1.0 MG/DL Aspartate Amino Transf (AST/SGOT) 9 5-34 U/L Alanine Aminotransferase (ALT/SGPT) 7 0-55 U/L Alkaline Phosphatase 87 40-136 U/L Total Protein 6.3 L 6.4-8.2 GM/DL Albumin 3.5 3.2-4.5 GM/DL Urine Color YELLOW Urine Clarity CLEAR Urine pH 8 5-9 Urine Specific [place] 1.010 L 1.016-1.022 Urine Protein NEGATIVE NEGATIVE Urine Glucose (UA) NEGATIVE NEGATIVE Urine Ketones NEGATIVE NEGATIVE Urine Nitrite NEGATIVE NEGATIVE Urine Bilirubin NEGATIVE NEGATIVE Urine Urobilinogen NORMAL NORMAL MG/DL Urine Leukocyte Esterase NEGATIVE NEGATIVE Urine RBC (Auto) 2+ H NEGATIVE Urine RBC 2-5 H /HPF Urine WBC NONE /HPF Urine Crystals NONE /LPF Urine Bacteria NEGATIVE /HPF Urine Casts NONE /LPF Urine Mucus NEGATIVE /LPF Urine Culture Indicated NO Radiology [facility] [place] NAME: ZARA ALEJANDRO MED REC#: [id number] PT STATUS: REG ER : 1950 PHYSICIAN: MARIA ISABEL BARRIGA MD ADMIT DATE: 01/02/19/ER Draft Date of Exam:01/02/19 CT ABDOMEN/PELVIS W PROCEDURE: CT abdomen and pelvis with contrast. TECHNIQUE: Multiple contiguous axial images were obtained through the abdomen and pelvis after administration of intravenous contrast. Auto Exposure Controls were utilized during the CT exam to meet ALARA standards for radiation dose reduction. INDICATION: Abdominal pain. COMPARISON: CT abdomen and pelvis with IV contrast 09/30/2013. The lung bases are clear. Cholecystectomy. There are couple moderately distended loops of small bowel in the left upper quadrant. No discrete transition point. The remaining small bowel is relatively normal in caliber. No pneumatosis. No free intraperitoneal air or fluid. Simple cyst in the right kidney measures up to 2.5 cm and is stable. The liver, pancreas, spleen, adrenals, left kidney, collecting systems and partially opacified bladder are negative. No lymphadenopathy. Infrarenal abnormal aorta aneurysm measuring up to 3.9 x 3.8 cm, previously 2.[address] evidence of impending rupture. Moderate to advance spondylytic changes in the lumbar spine are greatest at L5-S1. There are chronic bilateral L5 pars defects. No acute osseous findings. IMPRESSION: 1. Moderately distended proximal small bowel loops in the left upper quadrant are nonspecific. There is no focal transition point. No pneumatosis. No free intraperitoneal air or fluid. Remaining bowel is unremarkable. 2. Interval growth of the infrarenal abdominal aortic aneurysm now measures up to 3.9 cm, previously 2.8 cm in diameter. 3. Additional chronic and incidental findings as above Dictated on workstation # [id number] Dict: 01/02/19 1110 Trans: 01/02/19 1119 [facility] [id number] Interpreted by: TIERRA HITCHCOCK MD Electronically signed by: Physical Exam-([facility]) Physical Exam Vital Signs VS - Last 72 Hours, by Label 01/02/19 01/02/19 01/02/19 01/02/19 08:40 11:59 12:05 12:05 Temp 97.6 97.3 Pulse 77 68 72 Resp 18 18 18 B/P (MAP) 151/93 (112) 154/84 (107) 169/84 Pulse Ox 100 99 97 O2 Delivery Room Air Room Air 01/02/19 01/02/19 01/02/19 01/02/19 12:37 12:55 13:05 15:05 Temp 97.3 98.0 97.4 Pulse 75 77 77 72 Resp 20 20 19 B/P (MAP) 160/80 170/87 175/85 Pulse Ox 97 97 95 O2 Delivery Room Air Room Air Room Air 01/02/19 01/02/19 01/02/19 01/02/19 15:22 15:36 15:40 15:40 Temp 97.6 98.0 98.0 Pulse 74 74 73 73 Resp 20 20 20 B/P (MAP) 175/82 163/79 (107) 163/79 Pulse Ox 95 95 97 97 O2 Delivery Room Air Room Air Room Air FiO2 21 01/02/19 01/02/19 17:40 19:13 Temp 98.0 Pulse 73 Resp 18 B/P (MAP) 174/86 Pulse Ox 96 96 O2 Delivery Room Air Room Air Capillary Refill : Less Than 3 Seconds General Appearance: no apparent distress Eyes: Bilateral Eye Normal Inspection HEENT: pharynx normal Neck: supple Respiratory: lungs clear Cardiovascular: regular rate, rhythm Gastrointestinal: normal bowel sounds, soft; No distended, No guarding, No rebound; tenderness (mid L abdomen and LLQ) Rectal: deferred Back: normal inspection Neurologic/Psychiatric: alert, oriented x 3 Skin: normal color Assessment/Plan Assessment/Plan Admission Dx 1. Gastrointestinal bleed 2. Anemia due to number 1 3. Ongoing aortic aneurysm Admission Status: Inpatient Order (span 2 midnights) Reason for Inpatient Admission: Patient will have surgery consultation for possible endoscopies. He will also receive 2 units of blood today. Assessment & Plan 1. Gastrointestinal bleed -Dr. Avila has already been consulted through the ED -Patient will receive 2 units packed red blood cells 2. Anemia due to number 1 -Recheck CBC in the morning 3. Ongoing aortic aneurysm Clinical Quality Measures DVT/VTE Risk/Contraindication: Risk Factor Score Per Nursin RFS Level Per Nursing on Admit: 3=High OSIEL EASTMAN MD January 02, 2019 16:06
[2019-01-02] MEDS: NICOTINE 21 MG (NICODERM) PATCH TD SCH (16:25)
[2019-01-02] MEDS: NS IV 1000 ML 1,000 ML IV SCH ×2 (18:15→23:53)
[2019-01-02] MEDS: RT-ALBUTEROL/IPRATROPIUM 3 ML (DUONEB) VIAL INH SCH (19:13)
[2019-01-02 19:54] LABS: HEMOGLOBIN 9.9 G/DL (13.3-17.7)
[2019-01-02] MEDS ORDERED: TEMAZEPAM 15 MG (RESTORIL) CAP PO PRN (22:45)
[2019-01-03] VITALS: BP 159/77
[2019-01-03] MEDS: morphine INJ 4 MG/ML 1 ML (VIAL/SYRINGE) IVP PRN ×6 (00:08→11:55)
[2019-01-03 00:29] LABS: HEMOGLOBIN 8.8 G/DL (13.3-17.7)
[2019-01-03 04:00] VITALS: BP 153/76
[2019-01-03] MEDS: NS IV 1000 ML 1,000 ML IV SCH (04:20)
[2019-01-03 04:52] LABS: BASOPHILS % (AUTO) 0 % (0-10); EOSINOPHILS # (AUTO) 0.2 10^3/uL (0.0-0.3); EOSINOPHILS % (AUTO) 2 % (0-10); HEMATOCRIT 30 % (40-54); HEMOGLOBIN 9.1 G/DL (13.3-17.7); LYMPHOCYTES # (AUTO) 2.9 X 10^3 (1.0-4.0); LYMPHOCYTES % (AUTO) 32 % (12-44); MEAN CORPUSCULAR HEMOGLOBIN 23 PG (25-34); MEAN CORPUSCULAR HGB CONC 30 G/DL (32-36); MEAN CORPUSCULAR VOLUME 75 FL (80-99); MEAN PLATELET VOLUME 9.1 FL (7.4-10.4); MONOCYTES # (AUTO) 0.8 X 10^3 (0.0-1.0); MONOCYTES % (AUTO) 9 % (0-12); NEUTROPHILS # (AUTO) 5.3 X 10^3 (1.8-7.8); NEUTROPHILS % (AUTO) 58 % (42-75); PLATELET COUNT 420 10^3/uL (130-400); RED CELL DISTRIBUTION WIDTH 25.5 % (10.0-14.5); WHITE BLOOD COUNT 9.3 10^3/uL (4.3-11.0)
[2019-01-03 05:09] LABS: ALANINE AMINOTRANSFERASE 8 U/L (0-55); ALBUMIN 3.4 GM/DL (3.2-4.5); ALKALINE PHOSPHATASE 83 U/L (40-136); BILIRUBIN,TOTAL 0.6 MG/DL (0.1-1.0); BUN/CREATININE RATIO 4; CALCIUM 8.6 MG/DL (8.5-10.1); CARBON DIOXIDE 22 MMOL/L (21-32); CHLORIDE 108 MMOL/L (98-107); CREATININE SERUM 0.74 MG/DL (0.60-1.30); GFR ESTIMATED > 60; GLUCOSE 85 MG/DL (70-105); POTASSIUM 3.5 MMOL/L (3.6-5.0); SODIUM 139 MMOL/L (135-145)
[2019-01-03] MEDS: RT-ALBUTEROL/IPRATROPIUM 3 ML (DUONEB) VIAL INH SCH ×2 (06:37→06:38)
[2019-01-03 08:00] VITALS: BP 159/77
[2019-01-03 08:02] LABS: HEMOGLOBIN 9.2 G/DL (13.3-17.7)
[2019-01-03] MEDS ORDERED: PATCH REMOVAL TP SCH (09:00)
[2019-01-03] MEDS: PANTOPRAZOLE 40 MG (PROTONIX) VIAL IV SCH (09:13)
[2019-01-03] MEDS: NICOTINE 21 MG (NICODERM) PATCH TD SCH (09:14)
--- NOTE | 2019-01-03 10:06 | Discharge Summary-Hospitalist ---
Diagnosis/Chief Complaint Date of Admission January 02, 2019 at 11:27 Date of Discharge Discharge Date: January 03, 2019 Discharge Diagnosis (1) Black stools Status: Acute (2) CAD (coronary artery disease) Status: Chronic (3) Smoker Status: Chronic (4) Anemia Status: Chronic Discharge Summary Discharge Physical Exam Allergies: Coded Allergies: ibuprofen (Verified Allergy, Unknown, 01/02/19) Vitals & I&Os Vital Signs Date Time Temp Pulse Resp B/P (MAP) Pulse Ox O2 Delivery O2 Flow Rate FiO2 01/03/19 13:53 59 20 166/81 98 Room Air 01/03/19 12:00 97.9 01/02/19 15:36 21 General Appearance: No Apparent Distress, WD/WN, Chronically ill HEENT: PERRL/EOMI, Normal ENT Inspection, Pharynx Normal Respiratory: Chest Non Tender, Lungs Clear, Normal Breath Sounds, No Accessory Muscle Use, No Respiratory Distress Cardiovascular: Regular Rate, Rhythm, No Edema, No Gallop, No JVD, No Murmur, Normal Peripheral Pulses Neurologic/Psychiatric: Alert, Oriented x3, No Motor/Sensory Deficits, Normal Mood/Affect Hospital Course Was the Problem List Reviewed?: Yes Hospital course: Pt had a brief hospital course he was admitted for sever anemia , received two units of blood, and heme-occult positive stools. Dr. Avila saw him in consultation and will arrange for him a follow-up scope Thursday since his last dose of Aspirin and Plavix was Thursday. Overall he reports he wants to go home and smoke, he smokes two to three packs a day and increased his smoking after he had his stents placed 12 years ago. I counseled him on smoking cessation and will maintain Pt on Protonix and will have close follow up with Dr. Avila on Thursday along with [facility], of which Thursday he will have his scopes done. Labs (last 24 hrs) Laboratory Tests 01/03/19 00:20: Hemoglobin 8.8L, Hematocrit 29L 01/03/19 04:15: Hemoglobin 9.1L, Hematocrit 30L, White Blood Count 9.3, Red Blood Count 4.01L, Mean Corpuscular Volume 75L, Mean Corpuscular Hemoglobin 23L, Mean Corpuscular Hemoglobin Concent 30L, Red Cell Distribution Width 25.5H, Platelet Count 420H, Mean Platelet Volume 9.1, Neutrophils (%) (Auto) 58, Lymphocytes (%) (Auto) 32, Monocytes (%) (Auto) 9, Eosinophils (%) (Auto) 2, Basophils (%) (Auto) 0, Neutrophils # (Auto) 5.3, Lymphocytes # (Auto) 2.9, Monocytes # (Auto) 0.8, Eosinophils # (Auto) 0.2, Basophils # (Auto) 0.0, Sodium Level 139, Potassium Level 3.5L, Chloride Level 108H, Carbon Dioxide Level 22, Anion Gap 9, Blood Urea Nitrogen 3L, Creatinine 0.74, Estimat Glomerular Filtration Rate > 60, BUN/ Creatinine Ratio 4, Glucose Level 85, Calcium Level 8.6, Corrected Calcium 9.1, Total Bilirubin 0.6, Aspartate Amino Transf (AST/SGOT) 11, Alanine Aminotransferase (ALT/SGPT) 8, Alkaline Phosphatase 83, Total Protein 6.0L, Albumin 3.4 01/03/19 07:55: Hemoglobin 9.2L, Hematocrit 30L 01/03/19 12:03: Hemoglobin 9.0L, Hematocrit 30L 01/03/19 13:43: Lab Scanned Report Transfusion Reaction Form Patient resulted labs reviewed. Pending Labs Laboratory Tests 01/03/19 13:43: Lab Scanned Report Transfusion Reaction Form Discussion & Recommendations Discharge Planning: <30 minutes discharge planning Discharge Home Medications: Active Scripts Active Carafate (Sucralfate) 1 Gm Tablet 1 Gm PO QID Protonix (Pantoprazole Sodium) 40 Mg Tablet.dr 40 Mg PO DAILY Reported Promethazine Tablet (Promethazine HCl) 25 Mg Tablet PO Q6H PRN Hydrocodon-Acetaminophn 10-325 (Hydrocodone/Acetaminophen) 1 Each Tablet 1 Each PO Q6H PRN MDD 5 Pravastatin Sodium 40 Mg Tablet 40 Mg PO DAILY Atenolol 25 Mg Tablet 25 Mg PO DAILY Nitroglycerin 0.4 Mg Tab.subl 0.4 Mg SL UD PRN Instructions to patient/family Please see electronic discharge instructions given to patient. Clinical Quality Measures DVT/VTE Risk/Contraindication: Risk Factor Score Per Nursin RFS Level Per Nursing on Admit: 3=High Problem Qualifiers (1) CAD (coronary artery disease): Coronary Disease-Associated Artery/Lesion type: [place] artery [place] vs. transplanted heart: [place] heart Associated angina: without angina Qualified Codes: I25.10 - Atherosclerotic heart disease of [place] coronary artery without angina pectoris (2) Anemia: Anemia type: unspecified type Qualified Codes: D64.9 - Anemia, unspecified CLIFFORD ESCAMILLA DO January 03, 2019 10:06
[2019-01-03 12:00] VITALS: BP 166/81
[2019-01-03] MEDS ORDERED: SUCR1TAB36 PO (12:58)
[2019-01-03 13:53] VITALS: BP 166/81
--- NOTE | 2019-01-03 18:01 | Progress Note ---
Subjective Date Seen by a Provider: January 03, 2019 Time Seen by a Provider: 13:00 Subjective/Events-last exam Patient feeling better. Wanting to go home. Plavix and ASA have been held. Hgb stabilized. Denies n/v fever sweats chills shortness of breath or chest pain. Objective Exam Vital Signs Date Time Temp Pulse Resp B/P (MAP) Pulse Ox O2 Delivery O2 Flow Rate FiO2 01/03/19 13:53 59 20 166/81 98 Room Air 01/03/19 13:07 59 01/03/19 12:00 97.9 64 20 166/81 (109) 98 Room Air 01/03/19 09:00 98 Room Air 01/03/19 08:00 97.2 75 18 159/77 (104) 96 Room Air 01/03/19 07:00 68 01/03/19 04:00 98.4 86 17 153/76 (101) 97 Room Air 01/03/19 01:00 72 01/03/19 00:00 97.2 75 18 159/77 (104) 96 Room Air 01/02/19 20:00 99.2 76 18 164/79 (107) 98 Room Air 01/02/19 20:00 98 Room Air 01/02/19 19:13 96 Room Air 01/02/19 19:00 72 I & O 01/03/19 07:00 Intake Total 4700 ml Output Total 4140 ml Balance 560 ml Capillary Refill : Less Than 3 Seconds General Appearance: No Apparent Distress, WD/WN, Chronically ill Respiratory: Chest Non Tender, No Accessory Muscle Use, No Respiratory Distress Cardiovascular: Regular Rate, Rhythm, No Edema, No Gallop, No JVD, No Murmur, Normal Peripheral Pulses Peripheral Pulses: 2+ Dorsalis Pedis (R), 2+ Left Dors-Pedis (L), 2+ Radial Pulses (R), 2+ Radial Pulses (L) Gastrointestinal: normal bowel sounds, non tender, soft; No distended, No guarding, No rebound Extremity: Normal Inspection Neurologic/Psychiatric: Alert, Oriented x3, No Motor/Sensory Deficits, Normal Mood/Affect Skin: Normal Color Lymphatic: No Adenopathy Results Lab Laboratory Tests 01/02/19 19:49: Hemoglobin 9.9#L, Hematocrit 32L 01/03/19 00:20: Hemoglobin 8.8L, Hematocrit 29L 01/03/19 04:15: Hemoglobin 9.1L, Hematocrit 30L, White Blood Count 9.3, Red Blood Count 4.01L, Mean Corpuscular Volume 75L, Mean Corpuscular Hemoglobin 23L, Mean Corpuscular Hemoglobin Concent 30L, Red Cell Distribution Width 25.5H, Platelet Count 420H, Mean Platelet Volume 9.1, Neutrophils (%) (Auto) 58, Lymphocytes (%) (Auto) 32, Monocytes (%) (Auto) 9, Eosinophils (%) (Auto) 2, Basophils (%) (Auto) 0, Neutrophils # (Auto) 5.3, Lymphocytes # (Auto) 2.9, Monocytes # (Auto) 0.8, Eosinophils # (Auto) 0.2, Basophils # (Auto) 0.0, Sodium Level 139, Potassium Level 3.5L, Chloride Level 108H, Carbon Dioxide Level 22, Anion Gap 9, Blood Urea Nitrogen 3L, Creatinine 0.74, Estimat Glomerular Filtration Rate > 60, BUN/ Creatinine Ratio 4, Glucose Level 85, Calcium Level 8.6, Corrected Calcium 9.1, Total Bilirubin 0.6, Aspartate Amino Transf (AST/SGOT) 11, Alanine Aminotransferase (ALT/SGPT) 8, Alkaline Phosphatase 83, Total Protein 6.0L, Albumin 3.4 01/03/19 07:55: Hemoglobin 9.2L, Hematocrit 30L 01/03/19 12:03: Hemoglobin 9.0L, Hematocrit 30L 01/03/19 13:43: Lab Scanned Report Transfusion Reaction Form Assessment/Plan Assessment/Plan Assessment/Plan Left upper quadrant abdominal pain-improved Anemia from Possible GI bleed Nausea and vomiting AAA Hold plavix and ASA Hgb has been stable Protonix 40mg BID Clear liquid diet Discussed egd colonoscopy on Thursday and need for prep on . Agrees and will schedule for Thursday. Continue to monitor AAA on outpatient basis, instructed to keep follow up with PCP. Clinical Quality Measures DVT/VTE Risk/Contraindication: Risk Factor Score Per Nursin RFS Level Per Nursing on Admit: 3=High JEWELL WEI DO January 03, 2019 18:01
--- NOTE | 2019-01-06 15:28 | Physician Query Clarification ---
PQ-Further Specificity Admission/Discharge Admission Date: January 02, 2019 at 11:27 Discharge Date: January 03, 2019 at 13:53 The medical record reflects the following clinical scenario: History/Risk Factors: CAD, AAA, HTN, Sjogren's syndrome Clinical Findings: black, tarry stools, occult +, coffee ground emesis, moderate distention small bowel loops LUQ, Hgb 7.3 Treatment: 2U PRBC's, withhold Plavix and ASA, Protonix 40 mg BID, EGD/Colonoscopy as outpt Question: Can you further specify the chronicity of the anemia d/t GI bleed per the clinical indicators above? Please document below. 1. Anemia due to acute blood loss 2. Anemia due to chronic blood loss 3. Other, with explanation of the clinical findings. 4. Clinically undetermined, no explanation for the clinical findings. PHYSICIAN RESPONSE Can you specify per above: 1 In responding to this query, please exercise your independent professional judgment. The purpose of this communication is to more accurately reflect the complexity of your patients condition. The fact that a question is asked does not imply that any particular answer is desired or expected. Thank you for your timely response to this clarification. Requestors name: [ ] Phone # [ ] THIS PHYSICIAN QUERY FORM IS A PERMANENT PART OF THE MEDICAL RECORD COCO SOLIMAN January 06, 2019 15:28 CLIFFORD ESCAMILLA DO January 06, 2019 21:02
== END 2019-01-03 13:53 | disposition home or self-care (01) | DRG 378 ==
LOC: EDUNIT# 08:42 → ER 08:43 → 4TH 11:27 → UNDOADMIN 11:27
PROVIDERS: ADMIT Family Medicine; ATTEND Family Medicine
DX: K92.2 Gastrointestinal hemorrhage, unspecified (principal); D62 Acute posthemorrhagic anemia; F17.210 Nicotine dependence, cigarettes, uncomplicated; I25.10 Atherosclerotic heart disease of native coronary artery without angina pectoris; I71.4 Abdominal aortic aneurysm, without rupture; I10 Essential (primary) hypertension; E78.00 Pure hypercholesterolemia, unspecified; M35.00 Sjogren syndrome, unspecified; I25.2 Old myocardial infarction; Z95.5 Presence of coronary angioplasty implant and graft
CPT/HCPCS: 36415; 74177; 80053; 81000; 85014; 85018; 85025; 86850; 86900; 86901; 86920; 94640; 94760; 96374; 96375

== ENCOUNTER 2019-01-07 13:22 | Day surgery (SDC) | payer MEDICARE, MEDICAID ==
[~2019-01-07] VITALS: Ht 185.4 cm; Wt 72.2 kg
[~2019-01-07 13:22] MED LIST changes: +SUCR1TAB36 PO
[2019-01-07] MEDS ORDERED: LACTATED RINGERS 1,000 ML IV STA (13:50)
[2019-01-07] MEDS ORDERED: LACTATED RINGERS 1,000 ML IV ONE (13:52)
[2019-01-07 14:10] VITALS: BP 136/65
--- NOTE | 2019-01-07 14:11 | Progress Note-Pre Operative ---
Pre-Operative Progress Note H&P Reviewed The H&P was reviewed, patient examined and no changes noted. Date Seen by Provider: January 07, 2019 Time Seen by Provider: 14:10 Date H&P Reviewed: January 07, 2019 Time H&P Reviewed: 14:10 Pre-Operative Diagnosis: luq abd pain, anemia likely gi bleed JEWELL WEI DO January 07, 2019 14:11
[2019-01-07] MEDS ORDERED: MIDAZOLAM 2 MG/2 ML (VERSED) VIAL ONE (14:23)
[2019-01-07] MEDS ORDERED: PROPOFOL INJECTION 50 ML IV ONE (14:23)
--- NOTE | 2019-01-07 15:16 | Progress Note-Post Operative ---
Post-Operative Progess Note Surgeon (s)/Rn Recovery (s) Surgeon JEWELL WEI DO Rn Recovery: N/A Pre-Operative Diagnosis luq abd pain, anemia likely gi bleed Post-Operative Diagnosis LUQ abd pain Anemia likely GI bleed Procedure & Operative Findings Date of Procedure 01/07/19 Procedure Performed/Findings EGD with Biopsies and Colonoscopy - Gastric ulcer in the body of the stomach - AVM in the antrum of the stomach - Small hiatal hernia visualized Anesthesia Type per form carpenter Estimated Blood Loss Estimated blood loss (mL): none Specimens/Packing Specimens Removed antrum, body of stomach JEWELL WEI DO January 07, 2019 15:15
--- NOTE | 2019-01-07 15:17 | Discharge Inst-Simple/Standard ---
Discharge Inst-Standard Patient Instructions/Follow Up Plan of Care/Instructions/FU: 2 weeks [place] Activity as Tolerated: Yes Discharge Diet: Regular Diet JEWELL WEI DO January 07, 2019 15:17
[2019-01-07] MEDS ORDERED: TEMA15CA PO (15:22)
[2019-01-07] MEDS ORDERED: ASPI-808 PO (15:22)
[2019-01-07] MEDS ORDERED: HYDR-3816 PO (15:22)
[2019-01-07] MEDS ORDERED: CLOP75TA69 PO (15:22)
[2019-01-07 15:35] VITALS: BP 117/65
[2019-01-07 15:55] VITALS: BP 121/66
[2019-01-07 16:00] VITALS: BP 121/66
--- NOTE | 2019-01-08 03:11 | OPERATIVE REPORT ---
DATE OF SERVICE: 01/07/2019 PREOPERATIVE DIAGNOSES: Left upper quadrant abdominal pain, anemia, likely GI bleed. 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 PROCEDURE: EGD with biopsies, colonoscopy. SURGEON: Jewell Avila DO ANESTHESIA: Per GEOGRAPHIC INFORMATION SCIENTIST. ESTIMATED BLOOD LOSS: None. COMPLICATIONS: None. INDICATIONS: The patient is a 58-year-old male with recent hospitalization for anemia and a suspected GI bleed. He has been on Plavix and aspirin. This has been held. The patient's hemoglobin stabilized. He understands risks and benefits of procedures for further evaluation. The patient understands and wishes to proceed. Consent was signed on the chart. DESCRIPTION OF PROCEDURE: The patient was taken to the endoscopy suite, placed in left lateral recumbent position. Timeout was performed. Scope was inserted in mouth, down the esophagus, stomach and into the duodenum without difficulty. There were no polyps, masses or ulcerations within the duodenum. Scope was slowly retracted back into the stomach and further insufflated. Some slight erythematous changes in the antrum. Scope was retroflexed noting in the body a small healing ulcer and a small hiatal hernia. Biopsy of the body near the ulcer was obtained. Scope was returned to its normal position. Biopsy of the antrum was obtained. Scope was then slowly retracted back. There were no polyps, masses or ulcerations in the distal esophagus. Scope was then slowly retracted back until completely removed, noting no other pathology. Digital rectal exam was performed. There are no palpable polyps, masses or ulcerations. Scope was inserted in the rectum, advanced all the way to the cecum with minimal difficulty. Prep was adequate. Scope was then slowly retracted back. There were no polyps, mass or ulceration in the cecum, ascending, transverse, descending colon. In the sigmoid colon, a small arteriovenous malformation. Scope was then slowly retracted back into the rectum, where it was also retroflexed noting no other pathology. The patient tolerated procedure well without complications, taken to recovery room in stable condition. RECOMMENDATIONS: The patient will continue on Protonix and Carafate at this time. If he has any change of symptoms, he should be reevaluated at that time. We will also recommend repeat colonoscopy in 10 years family history of colon cancer or personal history of colon polyps, which were then be 5 years. If he has any issues before that, will be seen at that time for reevaluation. Job ID: [id number] DocumentID: [id number] Dictated Date: 01/07/2019 15:21:43 [employer] Cutter Machine Date: 01/08/2019 03:10:18 Dictated By: JEWELL AVILA DO
== END 2019-01-07 16:00 | disposition home or self-care (01) ==
LOC: ENDO 13:22
PROVIDERS: ATTEND Surgery
DX: K25.9 Gastric ulcer, unspecified as acute or chronic, without hemorrhage or perforation (principal); K21.9 Gastro-esophageal reflux disease without esophagitis; K44.9 Diaphragmatic hernia without obstruction or gangrene; K55.21 Angiodysplasia of colon with hemorrhage; D64.9 Anemia, unspecified; Z86.010 Personal history of colon polyps; I71.4 Abdominal aortic aneurysm, without rupture; F17.210 Nicotine dependence, cigarettes, uncomplicated; I25.10 Atherosclerotic heart disease of native coronary artery without angina pectoris; I10 Essential (primary) hypertension; E78.00 Pure hypercholesterolemia, unspecified; M35.00 Sjogren syndrome, unspecified; I25.2 Old myocardial infarction; Z95.5 Presence of coronary angioplasty implant and graft; Z79.02 Long term (current) use of antithrombotics/antiplatelets; Z79.82 Long term (current) use of aspirin; Z79.899 Other long term (current) drug therapy
CPT/HCPCS: 88305

== ENCOUNTER 2019-01-25 17:37 | Emergency (ER) | payer MEDICARE, MEDICAID ==
[~2019-01-25] VITALS: Ht 182.9 cm; Wt 74.8 kg
[~2019-01-25 17:37] MED LIST changes: +CLOP75TA69 PO; +HYDR-3816 PO
--- OUTSIDE RECORDS SUMMARY | 2019-01-25 17:44 | XMS REPORT | Continuity of Care Document ---
Author Organization Unknown Address Unknown Allergies Active Description Code Type Severity Reaction Onset Reported/Identified Relationship to Patient Clinical Status Yes ibuprofen [id number] Drug Allergy Unknown N/A 01/07/2019 Medications There is no data. Problems Date [...] SUTTON DO Ot 414.01 CORONARY ATHEROSCLEROSIS OF [place] CORON 09/15/2013 NEDRA SUTTON DO Ot 441.4 [...] Dukes Ot V58.63 LONG-TERM(CURRENT)USE OF ANTIPLATELET/AN 09/15/2013 LESLEY MCCABE NEDRA Dukes Ot V58.69 OTH MED,LT,CURRENT USE 09/21/2013 LESLEY MCCABE NEDRA Dukes Ot 305.1 TOBACCO USE DISORDER 09/21/2013 LESLEY MCCABE NEDRA Dukes Ot 401.9 HYPERTENSION NOS 09/21/2013 LESLEY MCCABE NEDRA Dukes Ot 414.01 CORONARY ATHEROSCLEROSIS OF [place] CORON 09/21/2013 LESLEY MCCABE NEDRA Dukes Ot 574.00 CHOLELITH W AC CHOLECYST 09/21/2013 LSELEY MCCABE NEDRA Dukes Ot 714.0 RHEUMATOID ARTHRITIS [...] BARRIGA MD Ot 414.01 CORONARY ATHEROSCLEROSIS OF [place] CORON 03/19/2014 MARIA ISABEL BARRIGA MD Ot [...] DRUG LEVEL MON 08/05/2016 GELLENDER DO, NEDRA Ernst Ot Z79.899 OTHER TOPOGRAPHICAL FIELD ASSISTANT (CURRENT) DRUG THERAPY 08/28/2016 GELLENDER DO, NEDRA Dukes Ot Z51.81 ENCOUNTER FOR THERAPEUTIC DRUG LEVEL MON 08/28/2016 GELLENDER DO, NEDRA Dukes Ot Z79.899 OTHER TOPOGRAPHICAL FIELD ASSISTANT (CURRENT) DRUG THERAPY 04/20/2018 GELLENDER DO, NEDRA Dukes Ot 789.09 ABDOMINAL PAIN, OTHER SPECIFIED SITE 04/20/2018 GELLENDER DO, NEDRA Ernst Ot Z51.81 ENCOUNTER FOR THERAPEUTIC DRUG LEVEL MON 04/20/2018 GELLENDER DO, NEDRA Ernst Ot Z79.899 OTHER HALF-WAY (CURRENT) DRUG THERAPY 04/21/2018 NICOLAS CAMACHO Ot [...] DO Ot I25.10 ATHSCL HEART DISEASE OF [place] CORONARY 06/01/2018 JEWELL WEI DO Ot K29.70 GASTRITIS, UNSPECIFIED, WITHOUT BLEEDING 06/01/2018 JEWELL WEI DO Ot M06.9 RHEUMATOID ARTHRITIS, UNSPECIFIED 06/01/2018 WEI DO JEWELL D Ot Z79.02 HALF-WAY (CURRENT) USE OF ANTITHROMBOTI 06/04/2018 WEI DO, JEWELL D Ot D12.5 BENIGN NEOPLASM OF SIGMOID COLON 06/04/2018 WEI DO, JEWELL D Ot D50.9 IRON DEFICIENCY ANEMIA, UNSPECIFIED 06/04/2018 WEI DO, JEWELL D Ot E78.5 HYPERLIPIDEMIA, UNSPECIFIED 06/04/2018 WEI DO JEWELL D Ot F17.210 NICOTINE DEPENDENCE, CIGARETTES, UNCOMPL 06/04/2018 WEI DO JEWELL D Ot I25.10 ATHSCL HEART DISEASE OF [place] CORONARY 06/04/2018 SINDHU WEI DOTT D Ot K29.70 GASTRITIS, UNSPECIFIED, WITHOUT BLEEDING 06/04/2018 SANJUANA MCCABE JEWELL D Ot M06.9 RHEUMATOID ARTHRITIS, UNSPECIFIED 06/04/2018 WEI DO, JEWELL D Ot Z79.02 TOPOGRAPHICAL FIELD ASSISTANT (CURRENT) USE OF ANTITHROMBOTI 12/28/2018 NICOLAS CAMACHO Ot D64.9 ANEMIA, UNSPECIFIED 12/29/2018 NICOLAS CAMACHO Ot D64.9 ANEMIA, UNSPECIFIED 01/03/2019 MARISSA EASTMAN MD Ot D62 ACUTE POSTHEMORRHAGIC ANEMIA 01/03/2019 MARISSA EASTMAN MD Ot E78.00 PURE HYPERCHOLESTEROLEMIA, UNSPECIFIED 01/03/2019 MARISSA EASTMAN MD Ot F17.210 NICOTINE DEPENDENCE, CIGARETTES, UNCOMPL 01/03/2019 MARISSA EASTMAN MD Ot I10 ESSENTIAL (PRIMARY) HYPERTENSION 01/03/2019 MARISSA EASTMAN MD, Ot I25.10 ATHSCL HEART DISEASE OF [place] CORONARY 01/03/2019 MARISSA EASTMAN MD Ot I25.2 OLD MYOCARDIAL INFARCTION 01/03/2019 MARISSA EASTMAN MD Ot I71.4 ABDOMINAL AORTIC ANEURYSM, WITHOUT RUPTU 01/03/2019 MARISSA EASTMAN MD Ot K92.2 GASTROINTESTINAL HEMORRHAGE, UNSPECIFIED 01/03/2019 MARISSA EASTMAN MD Ot M35.00 SICCA SYNDROME, UNSPECIFIED 01/03/2019 MARISSA EASTMAN MD Ot Z95.5 PRESENCE OF CORONARY ANGIOPLASTY IMPLANT 01/13/2019 WEIJEWELL LEVY DO Ot D64.9 ANEMIA, UNSPECIFIED 01/13/2019 WEI JEWELL MCCABE Ot E78.00 PURE HYPERCHOLESTEROLEMIA, UNSPECIFIED 01/13/2019 JEWELL WEI DO Ot F17.210 NICOTINE DEPENDENCE, CIGARETTES, UNCOMPL 01/13/2019 JEWELL WEI DO Ot I10 ESSENTIAL (PRIMARY) HYPERTENSION 01/13/2019 WEI JEWELL MCCABE Ot I25.10 ATHSCL HEART DISEASE OF [place] CORONARY 01/13/2019 WEI JEWELL MCCABE Ot I25.2 OLD MYOCARDIAL INFARCTION 01/13/2019 WEI JEWELL MCCABE Ot I71.4 ABDOMINAL AORTIC ANEURYSM, WITHOUT RUPTU 01/13/2019 JEWELL WEI DO Ot K21.9 GASTRO-ESOPHAGEAL REFLUX DISEASE WITHOUT 01/13/2019 JEWELL WEI DO Ot K25.9 GASTRIC ULCER, UNSP ACUTE OR CHRONIC, 01/13/2019 JEWELL WEI DO Ot K44.9 DIAPHRAGMATIC HERNIA WITHOUT OBSTRUCTION 01/13/2019 WEI JEWELL MCCABE Ot K55.21 ANGIODYSPLASIA OF COLON WITH HEMORRHAGE 01/13/2019 WEI JEWELL MCCABE Ot M35.00 SICCA SYNDROME, UNSPECIFIED 01/13/2019 WEI JEWELL MCCABE Ot Z79.02 HALF-WAY (CURRENT) USE OF ANTITHROMBOTI 01/13/2019 JEWELL WEI DO Ot Z79.82 HALF-WAY (CURRENT) USE OF ASPIRIN 01/13/2019 JEWELL WEI DO Ot Z79.899 OTHER HALF-WAY (CURRENT) DRUG THERAPY 01/13/2019 JEWELL WEI DO Ot Z86.010 PERSONAL HISTORY OF COLONIC POLYPS 01/13/2019 WEI JEWELL MCCABE Ot Z95.5 PRESENCE OF CORONARY ANGIOPLASTY IMPLANT Procedures Code Description Performed By Performed On [...] 9.3 fL 7.5-12.5 ABSOLUTE NEUTROPHILS 6215 cells/uL 9104-7777 ABSOLUTE LYMPHOCYTES 3797 cells/uL 850-3900 ABSOLUTE MONOCYTES 836 cells/uL 200-950 ABSOLUTE EOSINOPHILS 373 cells/uL 15-500 ABSOLUTE BASOPHILS 79 cells/uL 0-200 NEUTROPHILS 55 % NRG LYMPHOCYTES 33.6 % NRG MONOCYTES 7.4 % NRG EOSINOPHILS 3.3 % NRG BASOPHILS 0.7 % NRG PLATELET ESTIMATION - 12/27/18 08:56 CBC MORPHOLOGY - 12/27/18 08:56 CBC MORPHOLOGY NORMAL RED CELLS LEUKO REDUCED AS1 - 12/28/18 09:45 RED CELLS LEUKO REDUCED AS1 TRANSFUSED 12/28/18 1319 NRG Blood type T Indirect antibody screen panel - 12/28/18 09:45 ABO+Rh group AP NRG Transfusion band number [id number] NRG Blood group antibody screen NEGATIVE NRG Whole blood hemoglobin and hematocrit panel - 12/28/18 13:36 Venous blood hemoglobin measurement (mass/volume) 7.2 g/dL 13.3-17.7 Blood hematocrit (volume fraction) 25 % 40-54 Whole blood hemoglobin and hematocrit panel - 12/28/18 14:55 Venous blood hemoglobin measurement (mass/volume) 8.3 g/dL 13.3-17.7 Blood hematocrit (volume fraction) 28 % 40-54 Complete blood count (CBC) with automated white blood cell (WBC) differential - 01/02/19 09:10 Blood leukocytes automated count (number/volume) 9.2 10*3/uL 4.3-11.0 Blood erythrocytes automated count (number/volume) 3.48 10*6/uL 4.35-5.85 Venous blood hemoglobin measurement (mass/volume) 7.3 g/dL 13.3-17.7 Blood hematocrit (volume fraction) 25 % 40-54 Automated erythrocyte mean corpuscular volume 71 [foz_us] 80-99 Automated erythrocyte mean corpuscular hemoglobin (mass per erythrocyte) 21 pg 25-34 Automated erythrocyte mean corpuscular hemoglobin concentration measurement (mass/volume) 30 g/dL 32-36 Automated erythrocyte distribution width ratio 26.5 % 10.0- 14.5 Automated blood platelet count (count/volume) 473 10*3/uL 130-400 Automated blood platelet mean volume measurement 8.2 [foz_us] 7.4-10.4 Automated blood neutrophils/100 leukocytes 73 % 42-75 Automated blood lymphocytes/100 leukocytes 19 % 12-44 Blood monocytes/100 leukocytes 7 % 0-12 Automated blood eosinophils/100 leukocytes 1 % 0-10 Automated blood basophils/100 leukocytes 0 % 0-10 Blood neutrophils automated count (number/volume) 6.7 10*3 1.8-7.8 Blood lymphocytes automated count (number/volume) 1.8 10*3 1.0-4.0 Blood monocytes automated count (number/volume) 0.7 10*3 0.0- 1.0 Automated eosinophil count 0.1 10*3/uL 0.0-0.3 Automated blood basophil count (count/volume) 0.0 10*3/uL 0.0-0.1 Comprehensive metabolic panel - 01/02/19 09:10 Serum or plasma sodium measurement (moles/volume) 127 mmol/L 135-145 Serum or plasma potassium measurement (moles/volume) 3.1 mmol/L 3.6-5.0 Serum or plasma chloride measurement (moles/volume) 98 mmol/L 98-107 Carbon dioxide 22 mmol/L 21-32 Serum or plasma anion gap determination (moles/volume) 7 mmol/L 5-14 Serum or plasma urea nitrogen measurement (mass/volume) 5 mg/dL 7-18 Serum or plasma creatinine measurement (mass/volume) 0.72 mg/dL 0.60-1.30 Serum or plasma urea nitrogen/creatinine mass ratio 7 NRG Serum or plasma creatinine measurement with calculation of estimated glomerular filtration rate > NRG Serum or plasma glucose measurement (mass/volume) 118 mg/dL 70-105 Serum or plasma calcium measurement (mass/volume) 8.0 mg/dL 8.5-10.1 Serum or plasma total bilirubin measurement (mass/volume) 0.4 mg/dL 0.1-1.0 Serum or plasma alkaline phosphatase measurement (enzymatic activity/volume) 87 U/L 40-136 Serum or plasma aspartate aminotransferase measurement (enzymatic activity/volume) 9 U/L 5-34 Serum or plasma alanine aminotransferase measurement (enzymatic activity/volume) 7 U/L 0-55 Serum or plasma protein measurement (mass/volume) 6.3 g/dL 6.4-8.2 Serum or plasma albumin measurement (mass/volume) 3.5 g/dL 3.2-4.5 CALCIUM CORRECTED 8.4 mg/dL 8.5-10.1 RED CELLS LEUKO REDUCED AS1 - 01/02/19 09:10 RED CELLS LEUKO REDUCED AS1 TRANSFUSED 01/02/19 1224 NRG Blood type T Indirect antibody screen panel - 01/02/19 09:10 ABO+Rh group AP NRG Transfusion band number [id number] NRG Blood group antibody screen NEGATIVE NRG Complete urinalysis with reflex to culture - 01/02/19 10:30 Urine color determination YELLOW NRG Urine clarity determination CLEAR NRG Urine pH measurement by test strip 8 5-9 Specific gravity of urine by test strip 1.010 1.016-1.022 Urine protein assay by test strip, semi-quantitative NEGATIVE NEGATIVE Urine glucose detection by automated test strip NEGATIVE NEGATIVE Erythrocytes detection in urine sediment by light microscopy 2+ NEGATIVE Urine ketones detection by automated test strip NEGATIVE NEGATIVE Urine nitrite detection by test strip NEGATIVE NEGATIVE Urine total bilirubin detection by test strip NEGATIVE NEGATIVE Urine urobilinogen measurement by automated test strip (mass/volume) NORMAL NORMAL Urine leukocyte esterase detection by dipstick NEGATIVE NEGATIVE Automated urine sediment erythrocyte count by microscopy (number/high power field) [HPF] NRG Automated urine sediment leukocyte count by microscopy (number/high power field) NONE NRG Bacteria detection in urine sediment by light microscopy NEGATIVE NRG Crystals detection in urine sediment by light microscopy NONE NRG Casts detection in urine sediment by light microscopy NONE NRG Mucus detection in urine sediment by light microscopy NEGATIVE NRG Complete urinalysis with reflex to culture NO NRG Whole blood hemoglobin and hematocrit panel - 01/02/19 19:49 Venous blood hemoglobin measurement (mass/volume) 9.9 g/dL 13.3-17.7 Blood hematocrit (volume fraction) 32 % 40-54 Whole blood hemoglobin and hematocrit panel - 01/03/19 00:20 Venous blood hemoglobin measurement (mass/volume) 8.8 g/dL 13.3-17.7 Blood hematocrit (volume fraction) 29 % 40-54 Complete blood count (CBC) with automated white blood cell (WBC) differential - 01/03/19 04:15 Blood leukocytes automated count (number/volume) 9.3 10*3/uL 4.3-11.0 Blood erythrocytes automated count (number/volume) 4.01 10*6/uL 4.35-5.85 Venous blood hemoglobin measurement (mass/volume) 9.1 g/dL 13.3-17.7 Blood hematocrit (volume fraction) 30 % 40-54 Automated erythrocyte mean corpuscular volume 75 [foz_us] 80-99 Automated erythrocyte mean corpuscular hemoglobin (mass per erythrocyte) 23 pg 25-34 Automated erythrocyte mean corpuscular hemoglobin concentration measurement (mass/volume) 30 g/dL 32-36 Automated erythrocyte distribution width ratio 25.5 % 10.0- 14.5 Automated blood platelet count (count/volume) 420 10*3/uL 130-400 Automated blood platelet mean volume measurement 9.1 [foz_us] 7.4-10.4 Automated blood neutrophils/100 leukocytes 58 % 42-75 Automated blood lymphocytes/100 leukocytes 32 % 12-44 Blood monocytes/100 leukocytes 9 % 0-12 Automated blood eosinophils/100 leukocytes 2 % 0-10 Automated blood basophils/100 leukocytes 0 % 0-10 Blood neutrophils automated count (number/volume) 5.3 10*3 1.8-7.8 Blood lymphocytes automated count (number/volume) 2.9 10*3 1.0-4.0 Blood monocytes automated count (number/volume) 0.8 10*3 0.0- 1.0 Automated eosinophil count 0.2 10*3/uL 0.0-0.3 Automated blood basophil count (count/volume) 0.0 10*3/uL 0.0-0.1 Comprehensive metabolic panel - 01/03/19 04:15 Serum or plasma sodium measurement (moles/volume) 139 mmol/L 135-145 Serum or plasma potassium measurement (moles/volume) 3.5 mmol/L 3.6-5.0 Serum or plasma chloride measurement (moles/volume) 108 mmol/L 98-107 Carbon dioxide 22 mmol/L 21-32 Serum or plasma anion gap determination (moles/volume) 9 mmol/L 5-14 Serum or plasma urea nitrogen measurement (mass/volume) 3 mg/dL 7-18 Serum or plasma creatinine measurement (mass/volume) 0.74 mg/dL 0.60-1.30 Serum or plasma urea nitrogen/creatinine mass ratio 4 NRG Serum or plasma creatinine measurement with calculation of estimated glomerular filtration rate > NRG Serum or plasma glucose measurement (mass/volume) 85 mg/dL 70-105 Serum or plasma calcium measurement (mass/volume) 8.6 mg/dL 8.5-10.1 Serum or plasma total bilirubin measurement (mass/volume) 0.6 mg/dL 0.1-1.0 Serum or plasma alkaline phosphatase measurement (enzymatic activity/volume) 83 U/L 40-136 Serum or plasma aspartate aminotransferase measurement (enzymatic activity/volume) 11 U/L 5-34 Serum or plasma alanine aminotransferase measurement (enzymatic activity/volume) 8 U/L 0-55 Serum or plasma protein measurement (mass/volume) 6.0 g/dL 6.4-8.2 Serum or plasma albumin measurement (mass/volume) 3.4 g/dL 3.2-4.5 CALCIUM CORRECTED 9.1 mg/dL 8.5-10.1 Whole blood hemoglobin and hematocrit panel - 01/03/19 07:55 Venous blood hemoglobin measurement (mass/volume) 9.2 g/dL 13.3-17.7 Blood hematocrit (volume fraction) 30 % 40-54 Whole blood hemoglobin and hematocrit panel - 01/03/19 12:03 Venous blood hemoglobin measurement (mass/volume) 9.0 g/dL 13.3-17.7 Blood hematocrit (volume fraction) 30 % 40-54 Encounters ACCT No. Visit Date/Time Discharge Status Pt. Type Provider Facility Loc./Unit Complaint [id number] 12/30/2018 09:40:00 12/30/2018 23:59:59 CLS Outpatient NICOLAS CAMACHO [facility]N [facility] [id number] 12/27/2018 08:40:00 Document Registration [id number] 04/26/2018 08:00:00 Document Registration [id number] 04/15/2018 08:00:00 Document Registration [id number] 01/07/2019 13:22:00 01/07/2019 16:00:00 DIS Outpatient JEWELL WEI DO [facility] ENDO GI BLEED [id number] 01/02/2019 11:27:00 01/03/2019 13:53:00 DIS Outpatient MARISSA EASTMAN MD [facility] 4TH GI BLEED [id number] 12/28/2018 09:31:00 12/28/2018 15:00:00 DIS Outpatient NICOLAS CAMACHO [facility] SDC ANEMIA [id number] 06/01/2018 12:34:00 06/01/2018 16:45:00 DIS Outpatient JEWELL WEI DO [facility] ENDO IRON DEF ANEMIA/BLACK STOOLS [id number] 05/28/2018 13:36:00 05/28/2018 13:45:00 DIS Outpatient JEWELL WEI DO [facility] PREOP COLONOSCOPY [id number] 04/21/2018 06:47:00 04/21/2018 23:59:59 CLS Outpatient NICOLAS CAMACHO [facility] LAB ANEMIA [id number] 08/04/2016 11:07:00 08/04/2016 23:59:59 CLS Outpatient NEDRA SUTTON DO [facility] LAB URINE DRUG SCREEN [id number] 12/25/2014 13:32:00 12/25/2014 23:59:59 CLS Outpatient NEDRA SUTTON DO [facility] LAB HURTS ON LT SIDE, ABD PAIN [id number] 03/19/2014 12:47:00 03/19/2014 14:06:00 DIS Emergency MARIA ISABEL BARRIGA MD [facility] ER ROBERT ON L FOOT [id number] 09/30/2013 14:36:00 09/30/2013 17:35:00 DIS Emergency MARIA ISABEL BARRIGA MD [facility] ER L RIB PAIN [id number] 09/19/2013 07:26:00 09/21/2013 08:30:00 DIS Inpatient NEDRA SUTTON DO [facility] SURGICAL ACUTE CHOLECYSTITIS [id number] 09/15/2013 05:30:00 09/15/2013 16:48:00 DIS Inpatient NEDRA SUTTON DO [facility] CSD CHEST PAIN;NAUSEA VOMITING [id number] 12/25/2014 13:31:00 Document Registration [id number] 08/30/2012 16:09:00 Document Registration
[2019-01-25] MEDS ORDERED: NS IV 1000 ML 1,000 ML IV STA (17:54)
[2019-01-25] MEDS ORDERED: fentaNYL INJECTION 100 MCG/2 ML AMP IVP STA (17:54)
[2019-01-25] MEDS ORDERED: FAMOTIDINE 20MG/2ML IV (PEPCID) IV STA (17:54)
[2019-01-25] MEDS ORDERED: PANTOPRAZOLE 40 MG (PROTONIX) VIAL IV ONE (18:00)
[2019-01-25] MEDS ORDERED: ONDANSETRON 4 MG/2 ML (SDV) Z0FRAN IVP ONE (18:00)
[2019-01-25 18:04] LABS: BASOPHILS # (AUTO) 0.1 10^3/uL (0.0-0.1); BASOPHILS % (AUTO) 1 % (0-10); EOSINOPHILS # (AUTO) 0.2 10^3/uL (0.0-0.3); EOSINOPHILS % (AUTO) 2 % (0-10); HEMATOCRIT 34 % (40-54); HEMOGLOBIN 10.3 G/DL (13.3-17.7); LYMPHOCYTES # (AUTO) 2.9 X 10^3 (1.0-4.0); LYMPHOCYTES % (AUTO) 33 % (12-44); MEAN CORPUSCULAR HEMOGLOBIN 23 PG (25-34); MEAN CORPUSCULAR HGB CONC 31 G/DL (32-36); MEAN CORPUSCULAR VOLUME 76 FL (80-99); MEAN PLATELET VOLUME 8.2 FL (7.4-10.4); MONOCYTES # (AUTO) 0.7 X 10^3 (0.0-1.0); MONOCYTES % (AUTO) 8 % (0-12); NEUTROPHILS # (AUTO) 4.9 X 10^3 (1.8-7.8); NEUTROPHILS % (AUTO) 56 % (42-75); PLATELET COUNT 679 10^3/uL (130-400); RED CELL DISTRIBUTION WIDTH 24.8 % (10.0-14.5); WHITE BLOOD COUNT 8.7 10^3/uL (4.3-11.0)
[2019-01-25 18:16] LABS: ALANINE AMINOTRANSFERASE < 6 U/L (0-55); ALKALINE PHOSPHATASE 114 U/L (40-136); BILIRUBIN,TOTAL 0.3 MG/DL (0.1-1.0); BUN/CREATININE RATIO 5; CALCIUM 9.1 MG/DL (8.5-10.1); CARBON DIOXIDE 27 MMOL/L (21-32); CHLORIDE 105 MMOL/L (98-107); CREATININE SERUM 0.81 MG/DL (0.60-1.30); GFR ESTIMATED > 60; GLUCOSE 109 MG/DL (70-105); POTASSIUM 3.1 MMOL/L (3.6-5.0); SODIUM 138 MMOL/L (135-145); TOTAL PROTEIN 7.1 GM/DL (6.4-8.2)
[2019-01-25] MEDS ORDERED: HOLD METFORMIN - RECEIVED CONTRAST 20 ML VIAL IV SCH (18:45)
[2019-01-25] MEDS ORDERED: IOHEXOL 350 MG/ML 100 ML (OMNIPAQUE 350) VIAL IV ONE (18:45)
[2019-01-25] MEDS ORDERED: POTASSIUM CL 10MEQ/50ML IVPB 50 ML IV ONE (18:45)
[2019-01-25] MEDS ORDERED: NS 100 ML (IVPB) BAG IV ONE (18:45)
--- NOTE | 2019-01-25 18:48 | NUR ---
REPORT TO CARMELA ALARCON
--- NOTE | 2019-01-25 19:19 | Diagnostic Imaging Report ---
PROCEDURE: CT abdomen and pelvis with contrast. TECHNIQUE: Multiple contiguous axial images were obtained through the abdomen and pelvis after administration of intravenous contrast. Auto Exposure Controls were utilized during the CT exam to meet ALARA standards for radiation dose reduction. INDICATION: Abdominal pain, hemoptysis, and bloody stools with history of bleeding ulcer. Patient also has left upper quadrant pain, left lower quadrant pain, and fever. COMPARISON: Comparison is made with prior examination of 01/02/2019. FINDINGS: The lung bases are clear. Heart size is normal. There is mild fatty infiltration of the liver. Gallbladder is surgically absent. There is no biliary ductal dilatation. Spleen is normal. The pancreas and adrenal glands are unremarkable. There are bilateral renal cysts. Kidneys are otherwise unremarkable. There is a 4 cm infrarenal abdominal aortic aneurysm. The bowel gas pattern is nonspecific. There is no free air. There is no ascites. There are no focal inflammatory changes. There is moderate distention of the bladder. There is no pelvic mass, adenopathy, or free fluid. There are mild degenerative changes in the spine. IMPRESSION: 1. 4 cm infrarenal abdominal aortic aneurysm. 2. Bilateral renal cysts. 3. No other acute abnormality in the abdomen or pelvis. Dictated by: Dictated on workstation # [id number]
[2019-01-25 19:24] LABS: BILIRUBIN,URINE NEGATIVE (NEGATIVE); CLARITY,URINE CLEAR; COLOR,URINE YELLOW; GLUCOSE, URINE (UA) NEGATIVE (NEGATIVE); KETONES,URINE NEGATIVE (NEGATIVE); LEUKOCYTE ESTERASE ,URINE NEGATIVE (NEGATIVE); NITRITE,URINE NEGATIVE (NEGATIVE); PH,URINE 8 (5-9); PROTEIN,URINE NEGATIVE (NEGATIVE); UROBILINOGEN,URINE NORMAL (NORMAL)
[2019-01-25 19:35] LABS: BACTERIA,URINE NEGATIVE /HPF; SQUAMOUS EPITHELIAL CELL,UR RARE /HPF
--- NOTE | 2019-01-25 19:51 | ED Abdominal Pain ---
General Chief Complaint: Abdominal/GI Problems Stated Complaint: ABD PAIN Nursing Triage Note: PT TO ROOM 6 PER W/C PT CO OF ABD PAIN, VOMITED BLOOD ONCE AND HAD BLOODY STOOL TODAY. WAS RECENTLY DX W BLEEDING ULCER AND HAD TO HAVE BLOOD Sepsis Screen: No Definite Risk Source of Information: Patient Exam Limitations: No Limitations History of Present Illness Date Seen by Provider: January 25, 2019 Time Seen by Provider: 18:26 Initial Comments This 68-year-old gentleman presents to the emergency room with complaints of left upper quadrant abdominal pain, nausea and vomiting, and hematochezia. He has a known GI bleed for which she was admitted January 02. He takes aspirin and Plavix for coronary artery disease. He had EGD and colonoscopy performed by Dr. Wei on January 07. He was found to have a gastric ulcer, a small hiatal hernia, and an AVM. Patient has required transfusion recently. His hemoglobin on January 03 was 9.0. His hemoglobin earlier today was 10.8. A CT scan on January 02 showed an increased size of abdominal aortic hernia to 3.9 cm from 2.8 cm on the prior. Patient's cardiac stenting was done about 5 years ago. Allergies and Home Medications Allergies Coded Allergies: ibuprofen (Verified Allergy, Unknown, 01/02/19) Home Medications Clopidogrel Bisulfate 75 Mg Tablet, 75 MG PO DAILY, (Reported) Hydrocodone Bit/Acetaminophen 1 Tab Tab, 1 EACH PO Q4-6HR PRN for PAIN-MODERATE Prescribed by: MARYCARMEN MARTINEZ on 01/25/192022 Hydrocodone/Acetaminophen 1 Each Tablet, 1 TAB PO Q6H, (Reported) Ondansetron 4 Mg Tab.rapdis, 4 MG SL Q4H Prescribed by: MARYCARMEN MARTINEZ on 01/25/192021 Pantoprazole Sodium 40 Mg Tablet.dr, 40 MG PO DAILY Prescribed by: JEWELL WEI on 06/01/18 1622 Promethazine HCl 25 Mg Tablet, PO Q6H PRN for NAUSEA/VOMITING, (Reported) Sucralfate 1 Gm Tablet, 1 GM PO QID Prescribed by: JACOBO ENGLISH on 01/03/19 1258 Temazepam 15 Mg Capsule, 15 MG PO DAILY, (Reported) Patient Home Medication List Home Medication List Reviewed: Yes Review of Systems Review of Systems Constitutional: no symptoms reported EENTM: No Symptoms Reported Respiratory: No Symptoms Reported Cardiovascular: See HPI Gastrointestinal: See HPI Genitourinary: No Symptoms Reported Musculoskeletal: no symptoms reported Skin: no symptoms reported Psychiatric/Neurological: No Symptoms Reported Endocrine: No Symptoms Reported Hematologic/Lymphatic: See HPI Past Emsowre-Zwswbo-Tolffs Hx Past Med/Social Hx: Reviewed and Corrections made Patient Social History Alcohol Use: Denies Use Recreational Drug Use: No Smoking Status: Current Everyday Smoker Type Used: Cigarettes 2nd Hand Smoke Exposure: Yes Recent Foreign Travel: No Contact w/Someone Who Travel: No Recent Infectious Disease Expo: No Recent Hopitalizations: Yes (BLEEDING ULCER) Seasonal Allergies Seasonal Allergies: No Past Medical History Surgeries: Yes Abdominal (EGD and colonoscopy), Coronary Stent, Gallbladder Respiratory: Yes Pneumonia Cardiac: Yes (STENTS X2) Coronary Artery Disease, Heart Attack, High Cholesterol, Hypertension Neurological: No Reproductive Disorders: No Sexually Transmitted Disease: No HIV/AIDS: No Genitourinary: No Gastrointestinal: Yes (BLOOD ) Gastroesophageal Reflux Musculoskeletal: Yes (SJOGREN'S SYNDROME) Arthritis Endocrine: No HEENT: Yes (COLOR BLIND; GLASSES; MISSING TEETH) Cancer: No Psychosocial: Yes Sleep Difficulties, Depression Integumentary: No Blood Disorders: No Family Medical History No Pertinent Family Hx Physical Exam Vital Signs Vital Signs - First Documented 01/25/19 01/25/19 17:45 20:29 Temp 98.0 Pulse 72 Resp 18 B/P (MAP) 190/93 (125) Pulse Ox 98 O2 Delivery Room Air Capillary Refill : Less Than 3 Seconds Height/Weight/BMI Height: 6'0" Weight: 165lbs. 4.0oz. 74.497659kw; 21.0 BMI Method:Stated General Appearance: WD/WN, moderate distress HEENT: PERRL/EOMI, normal ENT inspection Neck: normal inspection Respiratory: lungs clear, normal breath sounds, no respiratory distress, no accessory muscle use Cardiovascular: regular rate, rhythm, no edema, no murmur Gastrointestinal: normal bowel sounds, soft, tenderness (left upper quadrant) Extremities: non-tender, normal inspection, no pedal edema, normal capillary refill Neurologic/Psychiatric: otorhinolaryngologist II-XII nml as tested, no motor/sensory deficits, alert, normal mood/affect, oriented x 3 Skin: normal color, warm/dry Progress/Results/Core Measures Results/Orders Lab Results Laboratory Tests Test 01/25/19 17:50 5/28/19 19:17 Range/Units White Blood Count 8.7 4.3-11.0 10^3/uL Red Blood Count 4.41 4.35-5.85 10^6/uL Hemoglobin 10.3 L 13.3-17.7 G/DL Hematocrit 34 L 40-54 % Mean Corpuscular Volume 76 L 80-99 FL Mean Corpuscular Hemoglobin 23 L 25-34 PG Mean Corpuscular Hemoglobin Concent 31 L 32-36 G/DL Red Cell Distribution Width 24.8 H 10.0-14.5 % Platelet Count 679 H 130-400 10^3/uL Mean Platelet Volume 8.2 7.4-10.4 FL Neutrophils (%) (Auto) 56 42-75 % Lymphocytes (%) (Auto) 33 12-44 % Monocytes (%) (Auto) 8 0-12 % Eosinophils (%) (Auto) 2 0-10 % Basophils (%) (Auto) 1 0-10 % Neutrophils # (Auto) 4.9 1.8-7.8 X 10^3 Lymphocytes # (Auto) 2.9 1.0-4.0 X 10^3 Monocytes # (Auto) 0.7 0.0-1.0 X 10^3 Eosinophils # (Auto) 0.2 0.0-0.3 10^3/uL Basophils # (Auto) 0.1 0.0-0.1 10^3/uL Sodium Level 138 135-145 MMOL/L Potassium Level 3.1 L 3.6-5.0 MMOL/L Chloride Level 105 98-107 MMOL/L Carbon Dioxide Level 27 21-32 MMOL/L Anion Gap 6 5-14 MMOL/L Blood Urea Nitrogen 4 L 7-18 MG/DL Creatinine 0.81 0.60-1.30 MG/DL Estimat Glomerular Filtration Rate > 60 BUN/Creatinine Ratio 5 Glucose Level 109 H 70-105 MG/DL Calcium Level 9.1 8.5-10.1 MG/DL Corrected Calcium 9.1 8.5-10.1 MG/DL Total Bilirubin 0.3 0.1-1.0 MG/DL Aspartate Amino Transf (AST/SGOT) 11 5-34 U/L Alanine Aminotransferase (ALT/SGPT) < 6 0-55 U/L Alkaline Phosphatase 114 40-136 U/L Total Protein 7.1 6.4-8.2 GM/DL Albumin 4.0 3.2-4.5 GM/DL Lipase 25 8-78 U/L Urine Color YELLOW Urine Clarity CLEAR Urine pH 8 5-9 Urine Specific [place] 1.010 L 1.016-1.022 Urine Protein NEGATIVE NEGATIVE Urine Glucose (UA) NEGATIVE NEGATIVE Urine Ketones NEGATIVE NEGATIVE Urine Nitrite NEGATIVE NEGATIVE Urine Bilirubin NEGATIVE NEGATIVE Urine Urobilinogen NORMAL NORMAL MG/DL Urine Leukocyte Esterase NEGATIVE NEGATIVE Urine RBC (Auto) 2+ H NEGATIVE Urine RBC 2-5 H /HPF Urine WBC NONE /HPF Urine Squamous Epithelial Cells RARE /HPF Urine Crystals NONE /LPF Urine Bacteria NEGATIVE /HPF Urine Casts NONE /LPF Urine Mucus NEGATIVE /LPF Urine Culture Indicated NO My Orders Orders - MARYCARMEN CHERY MD Lipase (01/25/19 18:14) Potassium Cl 10meq/50ml Ivpb (Kcl 10 Meq (01/25/19 18:45) Ct Abdomen/Pelvis W (01/25/19 18:38) Iohexol Injection (Omnipaque 350 Mg/Ml 1 (01/25/19 18:45) Received Contrast (Hold Metformin- Contr (01/25/19 18:45) Ns (Ivpb) (Sodium Chloride 0.9% Ivpb Bag (01/25/19 18:45) Lidocaine 2% Viscous 15 Ml (Xylocaine Vi (01/25/19 20:00) Antacid Suspension (Mylanta Suspension (01/25/19 20:00) Rx-Hydrocodone/Apap 5-325 Mg (Rx-Vicodin (01/25/19 20:15) Rx-Ondansetron Po (Rx-Zofran Po) (01/25/19 20:15) Medications Given in ED Current Medications Medications Dose Ordered Sig/Livia Route Start Time Stop Time Status Last Admin Dose Admin Al Hydrox/Mg Hydrox/Simethicone 30 ml ONCE ONCE PO 01/25/19 20:00 01/25/19 20:01 DC 01/25/19 20:10 30 ML Lidocaine HCl 15 ml ONCE ONCE PO 01/25/19 20:00 01/25/19 20:01 DC 01/25/19 20:10 15 ML Potassium Chloride 50 ml @ 50 mls/hr ONCE ONCE IV 01/25/19 18:45 01/25/19 19:44 DC 01/25/19 19:20 50 MLS/HR Vital Signs/I&O 01/25/19 01/25/19 17:45 20:29 Temp 98.0 98.3 Pulse 72 73 Resp 18 16 B/P (MAP) 190/93 (125) 182/93 (122) Pulse Ox 98 100 O2 Delivery Room Air 01/26/19 00:00 Intake Total 1050 ml Balance 1050 ml Blood Pressure Mean: 125 Progress Progress Note : Progress Note Patient was treated with fentanyl, Pepcid, Zofran, and IV fluids. Hemoglobin was stable. CT scan was obtained and showed no surgical emergencies. Case was discussed with Dr. eWi who would like to see the patient follow-up in one week. He is to go off aspirin and Plavix until further notice. He is to discuss this with Dr. Reyes as soon as possible. Protonix was increased to twice daily. Patient is to dissolve and slurry his Carafate. Proper dosing of Carafate was discussed. Patient received a GI cocktail which did improve his symptoms. He was discharged in significantly improved condition. Potassium was given by IV route route. Diagnostic Imaging Diagonstic Imaging: CT Plain Films/CT/US/NM/MRI: abdomen, pelvis Comments CT abdomen and pelvis viewed by me and report reviewed. See report below: NAME: ZARA ALEJANDRO [facility] REC#: [id number] PT STATUS: REG ER : 1950 PHYSICIAN: MARYCARMEN CHERY MD ADMIT DATE: 01/25/19/ER Signed Date of Exam: 01/25/19 CT ABDOMEN/PELVIS W PROCEDURE: CT abdomen and pelvis with contrast. TECHNIQUE: Multiple contiguous axial images were obtained through the abdomen and pelvis after administration of intravenous contrast. Auto Exposure Controls were utilized during the CT exam to meet ALARA standards for radiation dose reduction. INDICATION: Abdominal pain, hemoptysis, and bloody stools with history of bleeding ulcer. Patient also has left upper quadrant pain, left lower quadrant pain, and fever. COMPARISON: Comparison is made with prior examination of 01/02/2019. FINDINGS: The lung bases are clear. Heart size is normal. There is mild fatty infiltration of the liver. Gallbladder is surgically absent. There is no biliary ductal dilatation. Spleen is normal. The pancreas and adrenal glands are unremarkable. There are bilateral renal cysts. Kidneys are otherwise unremarkable. There is a 4 cm infrarenal abdominal aortic aneurysm. The bowel gas pattern is nonspecific. There is no free air. There is no ascites. There are no focal inflammatory changes. There is moderate distention of the bladder. There is no pelvic mass, adenopathy, or free fluid. There are mild degenerative changes in the spine. IMPRESSION: 1. 4 cm infrarenal abdominal aortic aneurysm. 2. Bilateral renal cysts. 3. No other acute abnormality in the abdomen or pelvis. Dictated by: Dictated on workstation # [id number] Dict: 01/25/191906 Trans: 01/25/191938 Interpreted by: LUCIO EMANUEL MD Electronically signed by: LUCIO EMANUEL MD 01/25/191938 Departure Impression Primary Impression: Gastric ulcer Qualified Codes: K25.0 - Acute gastric ulcer with hemorrhage Additional Impressions: Left upper quadrant pain GI bleed Qualified Codes: K27.4 - Chronic or unspecified peptic ulcer, site unspecified, with hemorrhage Hypokalemia Disposition: HOME, SELF-CARE Condition: Improved Departure-Patient Inst. Decision time for Depature: 20:15 Referrals: [facility] [place] (PCP) Primary Care Physician NICOLAS CAMACHO (Family) Primary Care Physician Patient Instructions: Gastric Ulcer (DC), Gastrointestinal Bleeding Add. Discharge Instructions: Observe a clear liquid diet for the remainder of the evening and until pain improves. When pain improves, he may gradually increase diet with small quantities of bland food as tolerated. Try to select foods that have potassium such as banana or yogurt. Continue with Carafate (sucralfate). You may dissolve this and a small amount of water and drink as a slurry. Avoid eating or drinking for at least 30 minutes after taking Carafate. Increase your Protonix to twice daily. Work on smoking cessation and seek help from your doctor if needed. Follow-up with Dr. Wei within one week. Follow-up with your primary care provider soon as possible. Stop aspirin and Plavix (clopidogrel). Contact your supervisor [employer]'s first thing tomorrow morning and discuss this with him further. Return to the emergency room if you have worsening symptoms. You may use Zofran (ondansetron) dissolved under the tongue every 4 hours as needed for nausea and vomiting. Use hydrocodone up to every 4 hours as needed for moderate to severe pain. All discharge instructions reviewed with patient and/or family. Voiced understanding. Scripts Hydrocodone Bit/Acetaminophen (Hydrocodone/Acetaminophen 5/325mg Tablet) 1 Tab Tab 1 EACH PO Q4-6HR PRN for PAIN-MODERATE MDD 10, #8 TAB Prov: MARYCARMEN CHERY MD 01/25/19 Ondansetron (Ondansetron Odt) 4 Mg Tab.rapdis 4 MG SL Q4H, #10 TAB Prov: MARYCARMEN CHERY MD 01/25/19 Copy Copies To 1: MARITZA PANDA DO; JEWELL WEI DO Copies To 2: KAMRAN REYES MD FACP FAC CCDS MARYCARMEN CHERY MD January 25, 2019 19:51
[2019-01-25] MEDS ORDERED: ANTACID SUSP 30 ML UDC (MYLANTA) PO ONE (20:00)
[2019-01-25] MEDS ORDERED: LIDOCAINE 2% VISCOUS 15 ML UDC PO ONE (20:00)
[2019-01-25] MEDS ORDERED: RX-ONDANSETRON 4 MG ODT (ZOFRAN) PPK #4 PO STA (20:15)
[2019-01-25] MEDS ORDERED: RX-HYDROCODONE/APAP 5/325 MG #4 TAB PK PO PRN (20:15)
[2019-01-25] MEDS ORDERED: ONDA4TAB11 SL (20:22)
[2019-01-25] MEDS ORDERED: ACHD5005 PO (20:23)
[2019-01-25 20:29] VITALS: BP 182/93
== END 2019-01-25 20:29 | disposition home or self-care (01) ==
LOC: EDUNIT# 17:37 → ER 17:38
DX: K25.9 Gastric ulcer, unspecified as acute or chronic, without hemorrhage or perforation (principal); K92.2 Gastrointestinal hemorrhage, unspecified; E87.6 Hypokalemia; I25.10 Atherosclerotic heart disease of native coronary artery without angina pectoris; E78.00 Pure hypercholesterolemia, unspecified; I10 Essential (primary) hypertension; K21.9 Gastro-esophageal reflux disease without esophagitis; F32.9 Major depressive disorder, single episode, unspecified; M35.00 Sjogren syndrome, unspecified; F17.210 Nicotine dependence, cigarettes, uncomplicated; Z95.5 Presence of coronary angioplasty implant and graft; Z98.890 Other specified postprocedural states; Z87.01 Personal history of pneumonia (recurrent); Z88.6 Allergy status to analgesic agent; Z87.19 Personal history of other diseases of the digestive system; Z79.82 Long term (current) use of aspirin; Z79.02 Long term (current) use of antithrombotics/antiplatelets
CPT/HCPCS: 36415; 74177; 80053; 81000; 83690; 85025; 86850; 86900; 86901; 96374; 96375

== ENCOUNTER 2022-09-14 11:48 | Emergency (ER) | payer MEDICARE, MEDICAID ==
[~2022-09-14] VITALS: Ht 178 cm; Wt 79.0 kg
[~2022-09-14 11:48] MED LIST changes: +ACHD5005 PO; +ACHYD1T PO; +CLOP-31 PO; -CLOP75TA69 PO; +HYDR-34 PO; -HYDR-3816 PO; -HYDR-3820 PO; +ONDA4TAB11 SL; -PANT40TA3 PO; +PANT40TA52 PO; -TRAM50TA2 PO; +TRM50T PO
--- NOTE | 2022-09-14 12:17 | ED General ---
General Chief Complaint: Trauma-Non Activation Stated Complaint: FALL Nursing Triage Note: PT TO [facility] 6 BY [facility] WITH CC OF SAME LEVEL FALL, RT LOW BACK AND LT ARM PAIN, DENIES LOC Source of Information: Patient, Old Records (KINGSLEY ARITA) History of Present Illness Date Seen by Provider: Sep 14, 2022 Time Seen by Provider: 11:56 Initial Comments 72yo M with h/o anemia from possible GI bleeds, CAD, and GERD presents to the ED following a same level fall that occurred last night. Pt is poor historian. Pt states that last night around midnight, he fell in his home. Pt cannot remember why he fell or what he was doing when he fell but denies tripping, feeling lightheaded or dizzy prior to fall, denies striking his head, and denies LOC. Pt states that he remembers being on the ground after fall and was able to ambulate by himself back to bed. Pt states that at the time of the fall he did not have any pain but when he got out of bed today he experienced 10/10 pain in his right lower back and ribs, prompting him to come to the ED. Pt states that he only has pain with movement and at rest he experiences no pain. Pt denies pain being exacerbated with deep breathing. Pt's L wrist and hand is also swollen and bruised but pt states that he only has pain when making a fist. Pt also c/o a very dry mouth and asks for water multiple times while in room. Pt also notes that he has had black stools and has had a colonoscopy in the past for GI bleeding that pt states was unable to find source. Pt also states that he has needed multiple transfusions for this in past. Pt denies fevers, chills, RAPHAEL, lightheadedness, dizziness, CP, SOB, hematuria, abd pain, nausea, or vomiting. (KINGSLEY ARITA) Allergies and Home Medications Allergies Coded Allergies: ibuprofen (Verified Allergy, Unknown, 01/02/19) Patient Home Medication List Home Medication List Reviewed: Yes (KINGSLEY ARITA) Aspirin (Aspirin) 325 Mg Tablet, 325 MG PO, (Reported) Entered as Reported by: NACHO SANTOS on 01/07/19 1522 Clopidogrel Bisulfate (Plavix) 75 Mg Tablet, 75 MG PO DAILY, (Reported) Entered as Reported by: NACHO SANTOS on 01/07/19 152 Hydrocodone Bit/Acetaminophen (HYDROcodone/APAP 7.5/325 TAB) 1 Each Tablet, 1 TAB PO Q6H, (Reported) Entered as Reported by: NACHO SANTOS on 01/07/19 152 Hydrocodone Bit/Acetaminophen (Lortab 5 Mg Tablet) 1 Tab Tab, 1 EACH PO Q4-6HR PRN for PAIN-MODERATE Prescribed by: MARYCARMEN MARTINEZ on 01/25/192022 Ondansetron (Ondansetron Odt) 4 Mg Tab.rapdis, 4 MG SL Q4H Prescribed by: MARYCARMEN MARTINEZ on 01/25/192021 Pantoprazole Sodium (Protonix) 40 Mg Tablet.dr, 40 MG PO DAILY Prescribed by: JEWELL WEI on 06/01/18 162 Promethazine HCl (Promethazine Tablet) 25 Mg Tablet, PO Q6H PRN for NAUSEA/VOMITING, (Reported) Entered as Reported by: SUMAYA GORMAN on 05/28/18 1325 Sucralfate (Carafate) 1 Gm Tablet, 1 GM PO QID Prescribed by: JACOBO ENGLISH on 01/03/19 1258 Temazepam (Temazepam) 15 Mg Capsule, 15 MG PO DAILY, (Reported) Entered as Reported by: NACHO SANTOS on 01/07/191521 Review of Systems Review of Systems Constitutional: No chills, No dizziness, No fever EENTM: other (dry mouth); No tearing, No vision loss Respiratory: No cough, No short of breath Cardiovascular: No chest pain, No edema, No palpitations Gastrointestinal: No abdominal pain, No diarrhea, No hematemesis; melena (chronic); No nausea, No vomiting Genitourinary: No dysuria, No hematuria Musculoskeletal: back pain (R lower back pain and R rib pain), joint swelling (L wrist) Skin: No change in hair/nails; other (bruising with dried blood to L cheek; multiple bruises along L hand and forearm, new bruise to LLQ) Psychiatric/Neurological: No Symptoms Reported Hematologic/Lymphatic: Anemia (chronic) Immunological/Allergic: no symptoms reported (KINGSLEY ARITA) Past Drxpuks-Xynxzm-Wyftsh Hx Patient Social History Tobacco Use?: Yes Tobacco type used: Cigarettes Smoking Status: Current Everyday Smoker Use of E-Cig and/or Vaping dev: No Substance use?: No (KINGSLEY ARITA) Seasonal Allergies Seasonal Allergies: No (KINGSLEY ARITA) Past Medical History Surgeries: Yes Abdominal, Coronary Stent, Gallbladder Respiratory: Yes Pneumonia Cardiac: Yes (STENTS X2) Coronary Artery Disease, Heart Attack, High Cholesterol, Hypertension Neurological: No Reproductive Disorders: No Sexually Transmitted Disease: No HIV/AIDS: No Genitourinary: No Gastrointestinal: Yes (BLOOD ) Gastroesophageal Reflux, Gastrointestinal Bleed, Gall Bladder Disease Musculoskeletal: Yes (SJOGREN'S SYNDROME) Arthritis Endocrine: No HEENT: Yes (COLOR BLIND; GLASSES; MISSING TEETH) Cancer: No Psychosocial: Yes Sleep Difficulties, Depression Integumentary: No Blood Disorders: No (KINGSLEY ARITA) Family Medical History No Pertinent Family Hx, Cancer (FATHER AND BROTHER) (KINGSLEY ARITA) Physical Exam Vital Signs Vital Signs - First Documented 09/14/22 11:54 Temp 35.6 Pulse 78 Resp 20 B/P (MAP) 147/96 (113) Pulse Ox 97 O2 Delivery Room Air ([facility]) Vital Signs Capillary Refill : Less Than 3 Seconds (KINGSLEY ARITA) Height, Weight, BMI Height: 6'0" Weight: 165lbs. 4.0oz. 74.374800yg; 24.00 BMI Method:Stated General Appearance: No Apparent Distress, Thin, Other (disheveled and wearing torn and dirty clothing with matthew bandage wrapped loosely around upper abd) HEENT: PERRL/EOMI; No Moist Mucous Membranes Neck: Non Tender, Limited Range of Motion (some limited ROM due to certain movements causing pain to R back and ribs) Respiratory: Lungs Clear, Normal Breath Sounds, No Accessory Muscle Use, No Respiratory Distress Cardiovascular: Regular Rate, Rhythm, No Murmur Gastrointestinal: Non Tender, Soft, Other (bruising to LL Flank/LLQ; bruising along mid-clavicular line just superior to LUQ) Back: No CVA Tenderness, No Vertebral Tenderness, Other (tenderness with palpation over ribs 7-9 on right ) Extremity: No Calf Tenderness, No Pedal Edema, Swelling (Swelling of dorsum of L hand; L wrist is slightly internally rotated and ROM of wrist and fingers limited secondary to pain ) Neurologic/Psychiatric: Alert, Oriented x3, No Motor/Sensory Deficits, Normal Mood/Affect Skin: Warm/Dry, Other (Bruising and swelling of dorsum of L hand to a little below the wrist, bruising extends along forearm; bruising and dried blood on L cheekbone and bruising to L alevism with small abrasion; bruising of from medial epicondyle of R elbow to mid forearm) (KINGSLEY ARITA) Progress/Results/Core Measures Suspected Sepsis SIRS Temperature: Pulse: 78 Respiratory Rate: 20 Laboratory Tests 09/14/22 12:30: White Blood Count 8.2 Blood Pressure 147 /96 Mean: 113 Laboratory Tests 09/14/22 12:30: INR Comment 1.0, Platelet Count 394, Total Bilirubin 0.4 (KINGSLEY ARITA) Results/Orders Lab Results Laboratory Tests Test 09/14/22 12:30 Range/Units White Blood Count 8.2 4.3-11.0 10^3/uL Red Blood Count 4.27 L 4.30-5.52 10^6/uL Hemoglobin 12.2 L 13.3-17.7 g/dL Hematocrit 38 L 40-54 % Mean Corpuscular Volume 89 80-99 fL Mean Corpuscular Hemoglobin 29 25-34 pg Mean Corpuscular Hemoglobin Concent 32 32-36 g/dL Red Cell Distribution Width 13.9 10.0-14.5 % Platelet Count 394 130-400 10^3/uL Mean Platelet Volume 8.1 L 9.0-12.2 fL Immature Granulocyte % (Auto) 0 % Neutrophils (%) (Auto) 73 42-75 % Lymphocytes (%) (Auto) 16 12-44 % Monocytes (%) (Auto) 9 0-12 % Eosinophils (%) (Auto) 2 0-10 % Basophils (%) (Auto) 1 0-10 % Neutrophils # (Auto) 6.0 1.8-7.8 10^3/uL Lymphocytes # (Auto) 1.3 1.0-4.0 10^3/uL Monocytes # (Auto) 0.7 0.0-1.0 10^3/uL Eosinophils # (Auto) 0.2 0.0-0.3 10^3/uL Basophils # (Auto) 0.1 0.0-0.1 10^3/uL Immature Granulocyte # (Auto) 0.0 0.0-0.1 10^3/uL Prothrombin Time 13.5 12.2-14.7 SEC INR Comment 1.0 0.8-1.4 Sodium Level 130 L 135-145 MMOL/L Potassium Level 4.3 3.6-5.0 MMOL/L Chloride Level 94 L 98-107 MMOL/L Carbon Dioxide Level 23 21-32 MMOL/L Anion Gap 13 5-14 MMOL/L Blood Urea Nitrogen 9 7-18 MG/DL Creatinine 0.95 0.60-1.30 MG/DL Estimat Glomerular Filtration Rate 86 BUN/Creatinine Ratio 9 Glucose Level 97 70-105 MG/DL Calcium Level 9.0 8.5-10.1 MG/DL Corrected Calcium 9.0 8.5-10.1 MG/DL Total Bilirubin 0.4 0.1-1.0 MG/DL Aspartate Amino Transf (AST/SGOT) 20 5-34 U/L Alanine Aminotransferase (ALT/SGPT) 11 0-55 U/L Alkaline Phosphatase 108 40-136 U/L Total Protein 7.1 6.4-8.2 GM/DL Albumin 4.0 3.2-4.5 GM/DL (BECKYVALARIE DO) My Orders Orders - VALARIE PENA DO Wrist, Left, 3 Views Or More (09/14/22 12:08) Hand, Left, 3 Views (09/14/22 12:08) Cbc With Automated Diff (09/14/22 12:08) Comprehensive Metabolic Panel (09/14/22 12:08) Protime With Inr (09/14/22 12:08) Ct Lumbar Spine Wo (09/14/22 12:08) Ct Head Wo (09/14/22 12:08) Ct Chest/Abdomen/Pelvis W (09/14/22 12:08) Iohexol Injection (Omnipaque 350 Mg/Ml 1 (09/14/22 12:30) Received Contrast (Hold Metformin- Contr (09/14/22 12:30) Ns (Ivpb) (Sodium Chloride 0.9% Ivpb Bag (09/14/22 12:30) (VALARIE PENA DO) Medications Given in ED Current Medications Medications Dose Ordered Sig/Livia Route Start Time Stop Time Status Last Admin Dose Admin Iohexol 100 ml ONCE ONCE IV 09/14/22 12:30 09/14/22 12:32 DC 09/14/22 13:16 80 ML Sodium Chloride 100 ml ONCE ONCE IV 09/14/22 12:30 09/14/22 12:32 DC 09/14/22 13:16 80 ML (BECKYVALARIE Blakely Cody MCCABE) Vital Signs/I&O 09/14/22 09/14/22 11:54 13:59 Temp 35.6 Pulse 78 73 Resp 20 20 B/P (MAP) 147/96 (113) 184/98 Pulse Ox 97 97 O2 Delivery Room Air Room Air (BECKY,VALARIE Cody MCCABE) Vital Signs/I&O Capillary Refill : Less Than 3 Seconds (KINGSLEY ARITA) Blood Pressure Mean: 113 Departure Communication (Admissions) I have personally seen and evaluated the patient, examined him and agree with the documented history and physical, exam findings. I have made all edits as necessary. Patient is hemodynamically stable. Labs unremarkable. He is on Plavix and aspirin so CT of his head is obtained which was negative. CT chest abdomen pelvis due to right rib pain, chest bruising and left-sided abdominal pain. CT lumbar spine secondary to pain. Left wrist Minimally impacted distal radius fracture, not really displaced with only 2 mm of dorsal angulation. This was splinted in place for comfort and he was given orthopedic follow-up. He is neurovascular and sensory intact. Left hand x-rays negative. (BECKYVALARIEKATIE Ross DO) Impression Primary Impression: Fracture of left distal radius Qualified Codes: S52.502A - Unspecified fracture of the lower end of left radius, initial encounter for closed fracture Additional Impressions: Fall Qualified Codes: W19.XXXA - Unspecified fall, initial encounter Abdominal pain Qualified Codes: R10.32 - Left lower quadrant pain Rib pain on right side Disposition: 01 HOME, SELF-CARE Condition: Stable Departure-Patient Inst. Referrals: [facility]/ (PCP) Primary Care Physician NICOLAS CAMACHO (Family) Primary Care Physician HAIM TRIMBLE MD Patient Instructions: Splint Care, Wrist Fracture (DC) Add. Discharge Instructions: Take precautions at home to prevent falls in the future. Ambulate with assistance if possible, walker or cane. You have broken your wrist, your radius on the left side. Keep the splint in place and dry. Take ibuprofen and Tylenol as needed for pain. Call Dr. Trimble, the bone doctor, to schedule a follow-up appointment to follow this to healing and to see if this might need surgery. He has no other obvious injuries. Return to the emergency department immediately for any severe pain, confusion, or if your symptoms change in any way concerning to him. All discharge instructions reviewed with patient and/or family. Voiced understanding. KINGSLEY ARITA Sep 14, 2022 12:17 VALARIE PENA DO Sep 14, 2022 13:34
[2022-09-14] MEDS ORDERED: HOLD METFORMIN - RECEIVED CONTRAST 20 ML VIAL IV SCH (12:30)
[2022-09-14] MEDS ORDERED: IOHEXOL 350 MG/ML 100 ML (OMNIPAQUE 350) VIAL IV ONE (12:30)
[2022-09-14] MEDS ORDERED: NS 100 ML (IVPB) BAG IV ONE (12:30)
[2022-09-14 12:38] LABS: BASOPHILS # (AUTO) 0.1 10^3/uL (0.0-0.1); BASOPHILS % (AUTO) 1 % (0-10); EOSINOPHILS # (AUTO) 0.2 10^3/uL (0.0-0.3); EOSINOPHILS % (AUTO) 2 % (0-10); HEMATOCRIT 38 % (40-54); HEMOGLOBIN 12.2 g/dL (13.3-17.7); LYMPHOCYTES # (AUTO) 1.3 10^3/uL (1.0-4.0); LYMPHOCYTES % (AUTO) 16 % (12-44); MEAN CORPUSCULAR HEMOGLOBIN 29 pg (25-34); MEAN CORPUSCULAR HGB CONC 32 g/dL (32-36); MEAN CORPUSCULAR VOLUME 89 fL (80-99); MEAN PLATELET VOLUME 8.1 fL (9.0-12.2); MONOCYTES # (AUTO) 0.7 10^3/uL (0.0-1.0); MONOCYTES % (AUTO) 9 % (0-12); NEUTROPHILS % (AUTO) 73 % (42-75); PLATELET COUNT 394 10^3/uL (130-400); WHITE BLOOD COUNT 8.2 10^3/uL (4.3-11.0)
[2022-09-14 12:48] LABS: POTASSIUM 4.3 MMOL/L (3.6-5.0)
[2022-09-14 12:49] LABS: PROTHROMBIN TIME PATIENT 13.5 SEC (12.2-14.7)
[2022-09-14 12:51] LABS: TOTAL PROTEIN 7.1 GM/DL (6.4-8.2)
[2022-09-14 12:53] LABS: BILIRUBIN,TOTAL 0.4 MG/DL (0.1-1.0)
[2022-09-14 12:54] LABS: CREATININE SERUM 0.95 MG/DL (0.60-1.30)
--- NOTE | 2022-09-14 12:59 | Diagnostic Imaging Report ---
HAND, LEFT, 3 VIEWS INDICATION: Left hand swelling COMPARISON: Wrist radiographs performed concurrently TECHNIQUE: 3 views of left hand FINDINGS: There is an acute fracture in distal radius which is detailed on the wrist report. No acute fracture within the hand. 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 Soft tissue swelling of the dorsal aspect of the hand and wrist is noted. IMPRESSION: 1. Please see the wrist report for details of the distal radial fracture. 2. No acute fracture within the hand. Dictated by: Dictated on workstation # [id number]
--- NOTE | 2022-09-14 13:00 | Diagnostic Imaging Report ---
CLINICAL INDICATIONS: Patient with pain and swelling status post fall. EXAM: X-ray of the left wrist, 3 views. COMPARISON: None. FINDINGS AND IMPRESSION: 1: There is a comminuted, mildly impacted intra-articular fracture involving the distal radial metaphysis. There is roughly 2 mm of positive ulnar variance. There is soft tissue swelling about the wrist. 2: There is no other fracture seen on this exam. 3: There are degenerative spurs involving the 1st CMC joint with joint space narrowing. Dictated by: Dictated on workstation # [id number]
--- NOTE | 2022-09-14 13:37 | Diagnostic Imaging Report ---
CLINICAL INDICATIONS: Patient same level fall. Patient with right low back and left lung pain. EXAM: Axial CT scan of the brain performed without IV contrast. Sagittal and coronal reformatted images are created. Auto Exposure Controls were utilized during the CT exam to meet ALARA standards for radiation dose reduction. COMPARISON: None. FINDINGS: There is no evidence of acute intracranial hemorrhage. There is no brain herniation or midline shift. There is brain parenchymal volume loss seen. There is no hydrocephalus. Basal cisterns are unremarkable. The extracranial soft tissue, skull, and orbits are unremarkable. Paranasal sinuses and mastoid air cells are clear. IMPRESSION: 1: There is no evidence of acute intracranial process. There is no skull fracture. 2: Age-related brain parenchymal changes. Dictated by: Dictated on workstation # [id number]
--- NOTE | 2022-09-14 13:47 | Diagnostic Imaging Report ---
PROCEDURE: CT lumbar spine without contrast. TECHNIQUE: Multiple contiguous axial images were obtained through the lumbar spine without the use of intravenous contrast. Sagittal and coronal reformations were then performed. Auto Exposure Controls were utilized during the CT exam to meet ALARA standards for radiation dose reduction. INDICATION: Trauma. Fall. Back pain. Left abdominal bruising. COMPARISON: CT chest, abdomen and pelvis also performed today. FINDINGS: Chronic bilateral L5 pars defects with grade 1 anterolisthesis of L5 on S1. Vertebral body heights preserved. No acute fractures. Mild to moderate degenerative endplate changes greatest at L5-S1. No evidence of high-grade spinal canal stenosis. Moderate to severe bilateral neural foraminal narrowing at L5-S1. Visualized pelvis is intact. Visualized paravertebral soft tissues demonstrate no acute findings. The abdominal aortic aneurysm is better demonstrated on today's CT chest, abdomen and pelvis. IMPRESSION: 1. No acute CT findings of the lumbar spine. 2. Grade 1 anterolisthesis of L5 on S1 due to chronic bilateral L5 pars defects. There is moderate to severe bilateral neural foraminal narrowing at this level. Dictated by: Dictated on workstation # [id number]
--- NOTE | 2022-09-14 13:47 | Diagnostic Imaging Report ---
PROCEDURE: CT chest, abdomen, and pelvis with contrast. TECHNIQUE: Multiple contiguous axial images were obtained through the chest, abdomen, and pelvis after the administration of intravenous contrast. Auto Exposure Controls were utilized during the CT exam to meet ALARA standards for radiation dose reduction. INDICATION: Trauma. Fall. Left abdominal pain and bruising. Right rib pain. COMPARISON: CT abdomen and pelvis with IV contrast 01/25/2019. FINDINGS: CT CHEST: Minimally displaced posterior right 11th rib fracture. Minimal dependent atelectasis in the lungs. No pleural effusion or pneumothorax. Normal heart size. No pericardial effusion. Advanced atherosclerotic calcifications of the coronary arteries. No mediastinal, hilar or axillary lymphadenopathy. CT ABDOMEN AND PELVIS: Cholecystectomy. The liver, pancreas, spleen, adrenals, kidneys, collecting systems and appendix demonstrate no acute findings. Distended urinary bladder. Simple appearing cysts in the kidneys. Infrarenal abdominal aortic aneurysm measures up to 4.5 x 4.8 cm, previously 4.0 x 4.0 cm. No free intraperitoneal air or fluid. No lymphadenopathy. No evidence of bowel obstruction. No acute osseous findings. Bilateral L5 pars defects with grade 1 anterolisthesis. IMPRESSION: 1. Acute minimally displaced posterior right 11th rib fracture. No pleural effusion or pneumothorax. 2. Infrarenal abdominal aortic aneurysm now measures up to 4.8 cm, previously 4.0 cm on 01/25/2019. Dictated by: Dictated on workstation # [id number]
[2022-09-14 13:59] VITALS: BP 184/98
== END 2022-09-14 14:02 | disposition home or self-care (01) ==
LOC: EDUNIT# 11:48 → ER 11:49
DX: S52.502A Unspecified fracture of the lower end of left radius, initial encounter for closed fracture (principal); R10.9 Unspecified abdominal pain; R07.81 Pleurodynia; F17.210 Nicotine dependence, cigarettes, uncomplicated; W18.30XA Fall on same level, unspecified, initial encounter; Y92.009 Unspecified place in unspecified non-institutional (private) residence as the place of occurrence of the external cause
CPT/HCPCS: 36415; 70450; 71260; 72131; 73110; 73130; 74177; 80053; 85025; 85610